=== PATIENT | male | born 1960 | race Caucasian/White ===

== ENCOUNTER 2018-09-17 08:34 | Inpatient (IN) | payer OTHER ==
[2018-09-17 08:59] VITALS: BMI 30.4
--- NOTE | 2018-09-17 09:48 | HP ---
CIWA Score Nausea/Vomitin Muscle Tremors: 2 Anxiety: 2 Agitation: 2 Paroxysmal Sweats: 1-Minimal Palms Moist Orientation: 0-Oriented Tacttile Disturbances: 1-Very Mild Itch/Numbness Auditory Disturbances: 0-None Visual Disturbances: 1-Very Mild Sensitivity Headache: 2-Mild CIWA-Ar Total Score: 13 - Admission Criteria OASAS Guidelines: Admission for Medically Managed Detox: Requires at least one of the followin. CIWA greater than 12 2. Seizures within the past 24 hours 3. Delirium tremens within the past 24 hours 4. Hallucinations within the past 24 hours 5. Acute intervention needed for co occurring medical disorder 6. Acute intervention needed for co occurring psychiatric disorder 7. Severe withdrawal that cannot be handled at a lower level of care (continued vomiting, continued diarrhea, abnormal vital signs) requiring intravenous medication and/or fluids 8. Patient presents the following: CIWA greater than 12 Admission Criteria Met: Admission criteria met Admission ROS BHS - HPI Chief Complaint: i need help to stop drinking alcohol,cocaine and marijuana Allergies/Adverse Reactions: Allergies Allergy/AdvReac Type Severity Reaction Status Date / Time Fish Containing Products Allergy Severe Rash Verified 09/17/18 10:01 No Known Drug Allergies Allergy Verified 09/17/18 10:01 [email or web address] Allergy Severe Rash Uncoded 09/17/18 10:01 [email or web address] Allergy Uncoded 09/17/18 10:01 seafood Allergy Rash Uncoded 09/17/18 10:01 History of Present Illness: this 58 years old male with alcohol,cocaine and marijuana dependence seeking detox,seen in [facility] last night receiving medication, seizure last 20 years ago alcohol related syncope history of hypertension,non compliance nicotine dependence multiple admissions in detox but keep relapsing longest sobriety 20 years plan to go to rehab after detox depression,insomnia,non compliance Exam Limitations: No Limitations - Ebola screening Have you traveled outside of the country in the last 21 days: No Have you had contact with anyone from an Ebola affected area: No Have you been sick,other than usual withdrawal symptoms: No Do you have a fever: No - Review of Systems Constitutional: Loss of Appetite, Malaise, Night Sweats, Changes in sleep, Weakness EENT: reports: Nose Congestion Respiratory: reports: No Symptoms reported Cardiac: reports: Palpitations GI: reports: Nausea, Poor Appetite, Abdominal cramping : reports: No Symptoms Reported Musculoskeletal: reports: Back Pain, Muscle Pain Integumentary: reports: Dryness Neuro: reports: Headache, Tremors Endocrine: reports: No Symptoms Reported Hematology: reports: No Symptoms Reported Psychiatric: reports: No Sypmtoms Reported, Judgement Intact, Mood/Affect Appropiate, Orientated x3, Depressed (insomnia non compliance with med) Patient History - Patient Medical History Hx Anemia: No Hx Asthma: Yes (on albuterol inhaler) Hx Chronic Obstructive Pulmonary Disease (COPD): No Hx Cancer: No Hx Cardiac Disorders: No Hx Congestive Heart Failure: No Hx Hypertension: No Hx Pacemaker: No HX Cerebrovascular Accident: No Hx Seizures: Yes (alcohol related last 2011) Hx Dementia: No Hx Diabetes: No Hx Gastrointestinal Disorders: No Hx Liver Disease: No Hx Genitourinary Disorders: No Hx Sexually Transmitted Disorders: No Hx Renal Disease (ESRD): No Hx Thyroid Disease: No Hx Human Immunodeficiency Virus (HIV): No (last 2016 negative) Hx Hepatitis C: Yes (treated in 2016) Hx Depression: Yes Hx Suicide Attempt: No (DENIES) Hx Bipolar Disorder: No Hx Schizophrenia: No Other Medical History: no suicidal,no homicidal,insomnia - Patient Surgical History Past Surgical History: Yes Hx Neurologic Surgery: No Hx Cataract Extraction: No Hx Cardiac Surgery: No Hx Lung Surgery: No Hx Breast Surgery: No Hx Breast Biopsy: No Hx Abdominal Surgery: No Hx Appendectomy: No Hx Cholecystectomy: No Hx Genitourinary Surgery: No Hx Section: No Hx Orthopedic Surgery: No Other Surgical History: SURGERY ON LEFT HAND IN 1978 Anesthesia Reaction: No - PPD History Previous Implant?: Yes Documented Results: Negative w/o proof Date: 06/01/14 Results: 0 mm PPD to be Administered?: Yes - Smoking Cessation Smoking history: Current every day smoker Have you smoked in the past 12 months: Yes Aproximately how many cigarettes per day: 10 Cigars Per Day: 0 Hx Chewing Tobacco Use: No Initiated information on smoking cessation: Yes 'Breaking Loose' booklet given: 09/17/18 - Substance & Tx. History Hx Alcohol Use: Yes Hx Substance Use: Yes Substance Use Type: Alcohol, Cocaine, Marijuana Hx Substance Use Treatment: Yes (03/03 in [place] did not recall the facility) - Substances Abused Alcohol Route: Oral Frequency: Daily Amount used: 3 pints of vodka/ a case of 12 ozs of beer Age of first use: 8 Date of Last Use: 09/16/18 Cocaine Route: Inhalation Frequency: 1-2 times per week Amount used: 40$ Age of first use: 12 Date of Last Use: 09/15/18 Marijuana/Hashish Route: Smoking Frequency: 1-2 times per week Amount used: 60$ Age of first use: 12 Date of Last Use: 09/16/18 Family Disease History - Family Disease History Family Disease History: Other: Father (alcohol,), Mother (alcohol, ), Brother (ADDICTED TO ETOH) Admission Physical Exam [facility] - Vital Signs Vital Signs: Vital Signs - 24 hr 09/17/18 08:56 Temperature 99.2 F Pulse Rate 107 H Respiratory 20 Rate Blood Pressure 147/88 - Physical General Appearance: Yes: Moderate Distress, Tremorous, Irritable, Sweating, Anxious HEENTM: Yes: Normal ENT Inspection, Normocephalic, Normal Voice, CAILIN Respiratory: Yes: Lungs Clear, Normal Breath Sounds, No Respiratory Distress Neck: Yes: Within Normal Limits, Supple, Trachea in good position Breast: Yes: Within Normal Limits Cardiology: Yes: Tachycardia Abdominal: Yes: Within Normal Limits, Normal Bowel Sounds, Soft Genitourinary: Yes: Within Normal Limits Back: Yes: Muscle Spasm Musculoskeletal: Yes: Back pain, Muscle Pain Extremities: Yes: Tremors, Other (scar in the palmar surface of left hand) 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 II-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 NML intact, Fully Oriented, Alert, Motor Strength 5/5 Integumentary: Yes: Dry Lymphatic: Yes: Within Normal Limits - Diagnostic (1) Alcohol dependence with uncomplicated withdrawal Current Visit: Yes Status: Acute (2) Cocaine dependence Current Visit: Yes Status: Acute (3) Cannabis dependence Current Visit: Yes Status: Acute (4) Arthritis of left knee Current Visit: No Status: Chronic (5) Asthma Current Visit: No Status: Chronic (6) Seizure Current Visit: No Status: Chronic Comment: alcohol related seizures, not emdicated for it (7) Hepatitis C Current Visit: Yes Status: Acute (8) Nicotine dependence Current Visit: Yes Status: Acute (9) Syncope Current Visit: Yes Status: Acute (10) Depression Current Visit: Yes Status: Acute (11) Insomnia Current Visit: Yes Status: Acute (12) Essential hypertension Current Visit: Yes Status: Acute Cleared for Admission [facility] - Detox or Rehab [facility] Level of Care: Medically Managed Detox Regimen/Protocol: Librium [facility] Breath Alcohol Content Breath Alcohol Content: 0 Urine Drug Screen - Results Drug Screen Negative: No Urine Drug Screen Results: THC-Marijuana, DAIJA-Cocaine, BZO-Benzodiazepines
[2018-09-17] MEDS ORDERED: MAG HYDROX/AL HYDROX/SIMETH 30 ML UNIT-DOSE CUP PO PRN (10:04)
[2018-09-17] MEDS ORDERED: chlordiazePOXIDE HCL 25 MG CAPSULE PO PRN (10:04)
[2018-09-17] MEDS ORDERED: MENTHOL/PHENOL 1 EACH UD MM PRN (10:04)
[2018-09-17] MEDS ORDERED: MAGNESIUM CITRATE 300 ML BOTTLE PO PRN (10:04)
[2018-09-17] MEDS ORDERED: MAGNESIUM HYDROX 2400MG/30ML ORAL SUSPENSION 30 ML CUP PO PRN (10:04)
[2018-09-17] MEDS ORDERED: LOPERAMIDE HCL 2 MG CAPSULE PO PRN (10:04)
[2018-09-17] MEDS ORDERED: P-EPHED 60MG/TRIPROLIDI 2.5MG TABLET PO PRN (10:04)
[2018-09-17] MEDS ORDERED: guaiFENesin/D-METHORPHAN HB 10 ML UNIT-DOSE CUPS PO PRN (10:04)
[2018-09-17] MEDS: chlordiazePOXIDE HCL 25 MG CAPSULE PO SCH ×3 (11:27→22:49)
[2018-09-17] MEDS: NICOTINE 21 MG/24 HOURS TOPICAL PATCH TD SCH (11:29)
[2018-09-17] MEDS ORDERED: MELATONIN 5 MG TABLETS PO PRN (22:00)
[2018-09-17] MEDS: THIAMINE HCL 100 MG TABLET (FP) PO SCH (22:49)
[2018-09-18] MEDS: chlordiazePOXIDE HCL 25 MG CAPSULE PO SCH ×4 (06:13→22:17)
[2018-09-18] MEDS ORDERED: ALBUTEROL SO4 8 GM HFA INHALER IH PRN (09:35)
[2018-09-18 10:17] LABS: HEMATOCRIT 43.8 % (35.4-49); HEMOGLOBIN 14.2 GM/dL (11.7-16.9); MCH 30.6 pg (25.7-33.7); MCHC 32.3 g/dl (32.0-35.9); MEAN CELL VOLUME 94.7 fl (80-96); MEAN PLT VOLUME 9.5 fl (7.5-11.1); PLATELET COUNT 296 K/MM3 (134-434); RBC 4.63 M/mm3 (4.00-5.60); WHITE BLOOD COUNT 9.4 K/mm3 (4.0-10.0)
[2018-09-18 10:35] LABS: ALBUMIN 3.7 g/dl (3.4-5.0); ALK PHOS 119 U/L (45-117); ANION GAP 7 MMOL/L (8-16); BILIRUBIN,TOTAL 1.2 mg/dL (0.2-1); BLOOD UREA NITROGEN 8 mg/dL (7-18); CALCIUM 8.7 mg/dL (8.5-10.1); CHLORIDE 103 mmol/L (98-107); CO2 29 mmol/L (21-32); CREATININE 0.9 mg/dL (0.55-1.3); GLUCOSE,RANDOM 96 mg/dL (74-106); POTASSIUM 4.2 mmol/L (3.5-5.1); SGOT/AST 29 U/L (15-37); SGPT/ALT 28 U/L (13-61); SODIUM 139 mmol/L (136-145); TOT PROT 7.4 g/dl (6.4-8.2)
[2018-09-18] MEDS: NICOTINE 21 MG/24 HOURS TOPICAL PATCH TD SCH (10:36)
[2018-09-18] MEDS: PRENATAL VITAMINS W/ FOLIC ACID TABLET (FP) PO SCH (10:36)
[2018-09-18] MEDS: IBUPROFEN 400 MG TABLET (FP) PO PRN (17:17)
[2018-09-18] MEDS: THIAMINE HCL 100 MG TABLET (FP) PO SCH (22:17)
[2018-09-19] MEDS: chlordiazePOXIDE HCL 25 MG CAPSULE PO SCH (06:30)
[2018-09-19] MEDS: METHYL SALICYLATE/MENTHOL OINT 30 GM TUBE TP SCH (10:00)
[2018-09-19] MEDS: PRENATAL VITAMINS W/ FOLIC ACID TABLET (FP) PO SCH (10:32)
[2018-09-19] MEDS: hydrOXYzine PAMOATE 50 MG CAPSULE (FP) PO PRN (10:32)
[2018-09-19] MEDS: chlordiazePOXIDE 5 MG CAPSULE PO SCH ×3 (10:32→23:04)
[2018-09-19] MEDS: NICOTINE 21 MG/24 HOURS TOPICAL PATCH TD SCH (10:32)
[2018-09-19] MEDS: BACITRACIN 0.9 GM PACKET TP SCH ×2 (14:38→23:04)
--- NOTE | 2018-09-19 17:32 | PN ---
S CIWA - CIWA Score Nausea/Vomitin-No Nausea/No Vomiting Muscle Tremors: 2 Anxiety: 4-Mod. Anxious/Guarded Agitation: 4-Moderately Restless Paroxysmal Sweats: No Perspiration Orientation: 0-Oriented Tacttile Disturbances: 3-Moderate Itch/Numb/Burn Auditory Disturbances: 0-None Visual Disturbances: 0-None Headache: 0-None Present CIWA-Ar Total Score: 13 BHS Progress Note (SOAP) Subjective: Anxious, Body Aches, Itching, Interrupted Sleep. Objective: PATIENT A & O X 3, OBSERVED AMBULATING ON UNIT. IN NO ACUTE DISTRESS. 09/19/18 17:32 Vital Signs Temperature 98.4 F 09/19/18 15:38 Pulse Rate 107 H 09/19/18 15:38 Respiratory Rate 18 09/19/18 15:38 Blood Pressure 136/90 09/19/18 15:38 O2 Sat by Pulse Oximetry (%) Laboratory Tests 09/17/18 09/18/18 09/18/18 10:20 06:00 06:00 WBC 9.4 RBC 4.63 Hgb 14.2 Hct 43.8 MCV 94.7 MCH 30.6 MCHC 32.3 RDW 14.0 Plt Count 296 D MPV 9.5 Sodium 139 Potassium 4.2 Chloride 103 Carbon Dioxide 29 Anion Gap 7 L BUN 8 Creatinine 0.9 Creat Clearance w eGFR > 60 Random Glucose 96 Calcium 8.7 Total Bilirubin 1.2 H AST 29 ALT 28 Alkaline Phosphatase 119 H Total Protein 7.4 Albumin 3.7 RPR Titer HIV 1&2 Antibody Screen Negative HIV P24 Antigen Negative 09/18/18 06:00 WBC RBC Hgb Hct MCV MCH MCHC RDW Plt Count MPV Sodium Potassium Chloride Carbon Dioxide Anion Gap BUN Creatinine Creat Clearance w eGFR Random Glucose Calcium Total Bilirubin AST ALT Alkaline Phosphatase Total Protein Albumin RPR Titer Nonreactive HIV 1&2 Antibody Screen HIV P24 Antigen LABS NOTED. Assessment: 09/19/18 17:32 WITHDRAWAL SYMPTOMS. Plan: CONTINUE DETOX. CONTINUE TO MONITOR BLOOD PRESSURE.
[2018-09-19] MEDS: ACETAMINOPHEN 325 MG TABLET (FP) PO PRN (19:42)
[2018-09-19] MEDS: THIAMINE HCL 100 MG TABLET (FP) PO SCH (23:04)
[2018-09-20] MEDS: chlordiazePOXIDE 5 MG CAPSULE PO SCH (06:30)
--- NOTE | 2018-09-20 09:21 | PN ---
BHS CIWA - CIWA Score Nausea/Vomitin Muscle Tremors: 2 Anxiety: 2 Agitation: 2 Paroxysmal Sweats: 1-Minimal Palms Moist Orientation: 0-Oriented Tacttile Disturbances: 1-Very Mild Itch/Numbness Auditory Disturbances: 1-Very Mild Visual Disturbances: 0-None Headache: 2-Mild CIWA-Ar Total Score: 13 BHS Progress Note (SOAP) Subjective: alert,irritable,anxious,interrupted sleep,tremor Objective: 09/20/18 09:17 t 98.6,p99,r18,bp 92/83 Assessment: 09/20/18 09:18 withdrawal symptom Plan: continue detox
--- NOTE | 2018-09-20 09:24 | PN ---
S Progress Note (SOAP) Subjective: alert,irritable,anxious,interrupted sleep Objective: 09/20/18 09:23 Vital Signs Temperature 98.9 F 09/20/18 06:44 Pulse Rate 71 09/20/18 06:44 Respiratory Rate 18 09/20/18 06:44 Blood Pressure 138/86 09/20/18 06:44 O2 Sat by Pulse Oximetry (%) Assessment: 09/20/18 09:23 withdrawal symptom Plan: continue detox,discharge in am
[2018-09-20] MEDS: PRENATAL VITAMINS W/ FOLIC ACID TABLET (FP) PO SCH (11:51)
[2018-09-20] MEDS: NICOTINE 21 MG/24 HOURS TOPICAL PATCH TD SCH (11:51)
[2018-09-20] MEDS: chlordiazePOXIDE HCL 10 MG CAPSULE PO SCH ×3 (11:51→23:59)
[2018-09-20] MEDS: METHYL SALICYLATE/MENTHOL OINT 30 GM TUBE TP SCH (13:35)
[2018-09-20] MEDS: BACITRACIN 0.9 GM PACKET TP SCH ×2 (13:35→23:59)
[2018-09-20] MEDS: hydrOXYzine PAMOATE 50 MG CAPSULE (FP) PO PRN (13:40)
[2018-09-20] MEDS: IBUPROFEN 400 MG TABLET (FP) PO PRN (13:40)
[2018-09-20] MEDS: ACETAMINOPHEN 325 MG TABLET (FP) PO PRN (18:24)
[2018-09-20] MEDS: THIAMINE HCL 100 MG TABLET (FP) PO SCH (23:59)
--- NOTE | 2018-09-21 10:51 | DS ---
[facility] Detox Discharge Summary Admission Date: 09/17/18 Discharge Date: 09/21/18 - History Present History: Alcohol Dependence Additional Comments: 58 years old male admitted on 09/17/17 for alcohol withdrawal stabilization completed detox regimen tolerated well alert no acute distress aftercare [facility] - Physical Exam Results Vital Signs: Vital Signs Temperature 98.1 F 09/21/18 09:42 Pulse Rate 95 H 09/21/18 09:42 Respiratory Rate 18 09/21/18 09:42 Blood Pressure 146/100 09/21/18 09:42 O2 Sat by Pulse Oximetry (%) Pertinent Admission Physical Exam Findings: alcohol withdrawal sx Laboratory Last Values WBC 9.4 K/mm3 (4.0-10.0) 09/18/18 06:00 RBC 4.63 M/mm3 (4.00-5.60) 09/18/18 06:00 Hgb 14.2 GM/dL (11.7-16.9) 09/18/18 06:00 Hct 43.8 % (35.4-49) 09/18/18 06:00 MCV 94.7 fl (80-96) 09/18/18 06:00 MCH 30.6 pg (25.7-33.7) 09/18/18 06:00 MCHC 32.3 g/dl (32.0-35.9) 09/18/18 06:00 RDW 14.0 % (11.9-15.9) 09/18/18 06:00 Plt Count 296 K/MM3 (134-434) D 09/18/18 06:00 MPV 9.5 fl (7.5-11.1) 09/18/18 06:00 Sodium 139 mmol/L (136-145) 09/18/18 06:00 Potassium 4.2 mmol/L (3.5-5.1) 09/18/18 06:00 Chloride 103 mmol/L (98-107) 09/18/18 06:00 Carbon Dioxide 29 mmol/L (21-32) 09/18/18 06:00 Anion Gap 7 MMOL/L (8-16) L 09/18/18 06:00 BUN 8 mg/dL (7-18) 09/18/18 06:00 Creatinine 0.9 mg/dL (0.55-1.3) 09/18/18 06:00 Creat Clearance w eGFR > 60 (>60) 09/18/18 06:00 Random Glucose 96 mg/dL (74-106) 09/18/18 06:00 Calcium 8.7 mg/dL (8.5-10.1) 09/18/18 06:00 Total Bilirubin 1.2 mg/dL (0.2-1) H 09/18/18 06:00 AST 29 U/L (15-37) 09/18/18 06:00 ALT 28 U/L (13-61) 09/18/18 06:00 Alkaline Phosphatase 119 U/L (45-117) H 09/18/18 06:00 Total Protein 7.4 g/dl (6.4-8.2) 09/18/18 06:00 Albumin 3.7 g/dl (3.4-5.0) 09/18/18 06:00 RPR Titer Nonreactive (NONREACTIVE) 09/18/18 06:00 HIV 1&2 Antibody Screen Negative 09/17/18 10:20 HIV P24 Antigen Negative 09/17/18 10:20 lab noted - Treatment Hospital Course: Detox Protocol Followed, Detoxed Safely, Responded well, Discharged Condition Good, Rehab Referral Accepted Patient has Accepted a Rehab Referral to: [facility] - Medication Discharge Medications: Ambulatory Orders traZODone HCL [Trazodone HCl] 100 mg PO HS 09/17/18 Albuterol Sulfate Inhaler - [Ventolin HFA Inhaler -] 2 inh PO Q4H PRN #1 inhaler 09/21/18 - Diagnosis (1) Alcohol dependence with uncomplicated withdrawal Current Visit: Yes Status: Acute (2) Essential hypertension Current Visit: Yes Status: Chronic (3) Asthma Current Visit: Yes Status: Chronic Qualifiers: Asthma severity: mild Asthma persistence: intermittent Asthma complication type: uncomplicated Qualified Code(s): J45.20 - Mild intermittent asthma, uncomplicated (4) Hepatitis C Current Visit: Yes Status: Chronic Qualifiers: Viral hepatitis chronicity: chronic Hepatic coma status: without hepatic coma Qualified Code(s): B18.2 - Chronic viral hepatitis C (5) Nicotine dependence Current Visit: Yes Status: Acute - AMA Did Patient Leave Against Medical Advice: No
[2018-09-21] MEDS: NICOTINE 21 MG/24 HOURS TOPICAL PATCH TD SCH (12:04)
[2018-09-21] MEDS: PRENATAL VITAMINS W/ FOLIC ACID TABLET (FP) PO SCH (12:04)
[2018-09-21] MEDS: hydrOXYzine PAMOATE 50 MG CAPSULE (FP) PO PRN (12:04)
[2018-09-21] MEDS: METHYL SALICYLATE/MENTHOL OINT 30 GM TUBE TP SCH (12:06)
[2018-09-21] MEDS: BACITRACIN 0.9 GM PACKET TP SCH (12:06)
[2018-09-21 13:15] VITALS: BP 142/93; PULSE 110; TEMP 97.8
== END 2018-09-21 15:16 | disposition other institution (70) | DRG 774 ==
LOC: YASAS 08:34 → Y6N 10:18
PROC: HZ2ZZZZ Detoxification Services for Substance Abuse Treatment (ICD-10-PCS; principal; 2018-09-17)
DX: F10.230 Alcohol dependence with withdrawal, uncomplicated (principal); F14.20 Cocaine dependence, uncomplicated; F12.20 Cannabis dependence, uncomplicated; F17.210 Nicotine dependence, cigarettes, uncomplicated; F32.9 Major depressive disorder, single episode, unspecified; I10 Essential (primary) hypertension; J45.20 Mild intermittent asthma, uncomplicated; B18.2 Chronic viral hepatitis C; R55 Syncope and collapse; G47.00 Insomnia, unspecified; M17.12 Unilateral primary osteoarthritis, left knee; Z86.69 Personal history of other diseases of the nervous system and sense organs; Z95.0 Presence of cardiac pacemaker
CPT/HCPCS: 36415; 80053; 85027; 86593; 87389

== ENCOUNTER 2018-09-21 15:25 | Inpatient (IN) | payer OTHER ==
--- NOTE | 2018-09-21 16:13 | HP ---
[facility] Rehab Assess/Revision - Admission History Admitted to Rehab from: [facility] [address] [place] Date of Admission to Rehab: 09/21/18 - Findings Detox History & Physical reviewed: Yes Concur with findings: Yes Comments/Additional Findings: for rehab as protocol Inpatient Rehab Admission - Initial Determination Are CD services needed?: Yes Free of communicable disease: Yes Not in need of hospitalization: Yes - Rehab Admission Criteria Previous failed treatment: Yes Poor recovery environment: Yes Comorbidities: Yes Lacks judgement: No Patient is meeting Inpatient Rehab admission criteria:: Yes
[2018-09-21] MEDS ORDERED: ACETAMINOPHEN 325 MG TABLET (FP) PO PRN (16:16)
[2018-09-21] MEDS ORDERED: guaiFENesin/D-METHORPHAN HB 10 ML UNIT-DOSE CUPS PO PRN (16:16)
[2018-09-21] MEDS ORDERED: LOPERAMIDE HCL 2 MG CAPSULE PO PRN (16:16)
[2018-09-21] MEDS ORDERED: MAG HYDROX/AL HYDROX/SIMETH 30 ML UNIT-DOSE CUP PO PRN (16:16)
[2018-09-21] MEDS ORDERED: MAGNESIUM CITRATE 300 ML BOTTLE PO PRN (16:16)
[2018-09-21] MEDS ORDERED: MENTHOL/PHENOL 1 EACH UD MM PRN (16:16)
[2018-09-21] MEDS ORDERED: MAGNESIUM HYDROX 2400MG/30ML ORAL SUSPENSION 30 ML CUP PO PRN (16:16)
[2018-09-21] MEDS ORDERED: P-EPHED 60MG/TRIPROLIDI 2.5MG TABLET PO PRN (16:16)
[2018-09-21] MEDS ORDERED: hydrOXYzine PAMOATE 50 MG CAPSULE (FP) PO PRN (16:16)
[2018-09-21] MEDS ORDERED: IBUPROFEN 400 MG TABLET (FP) PO PRN (16:16)
[2018-09-21] MEDS ORDERED: ALBUTEROL SO4 8 GM HFA INHALER IH PRN (16:17)
--- NOTE | 2018-09-21 18:38 | PN ---
S Progress Note Note: Called by nursing staff to order medication for newly admitted patient. Medication reconciliation done. Trazadone 100 mg po HS ordered
[2018-09-21] MEDS: THIAMINE HCL 100 MG TABLET (FP) PO SCH (21:13)
[2018-09-21] MEDS: traZODone HCL 100 MG TABLET (FP) PO SCH (21:13)
[2018-09-21] MEDS ORDERED: MELATONIN 5 MG TABLETS PO PRN (22:00)
--- NOTE | 2018-09-22 07:38 | HP ---
Psychiatrist Admission - Data Date of interview: 09/22/18 Admission source: 6N Identifying data: This is the first [facility] admission for this 58 years old single male, father of 3 children, unemployed on SSI, homeless Medical History: Significant for history of arthitis left knee, gout, bronchial asthma, history of treatment for hepatitis C in 2017, alcohol-related seizure and orthosurgery for fracture left hand. Smokes 10 cigarettes daily Psychiatric History: Patient was very irritable and not fully cooperative with the interview. Reports being diagnosed with PTSD/MDD approximately 20 years ago. Reports seeing psychiatrist on & off till 4 [facility] Reports 2 previous psychiatic hospitalizations for depession at [facility]. Denies previous suicidal attempt. He claims that he could not recall name of any medications that were prescribed to him. Physical/Sexual Abuse/Trauma History: Denies Additional Comment: Denies criminal history Vital Signs: Vital Signs - 24 hr 09/22/18 09/22/18 09/22/18 00:30 03:30 06:00 Temperature 98.3 F Pulse Rate 96 H Respiratory 16 16 18 Rate Blood Pressure 144/94 Allergies/Adverse Reactions: Allergies Allergy/AdvReac Type Severity Reaction Status Date / Time Fish Containing Products Allergy Severe Rash Verified 09/17/18 10:01 No Known Drug Allergies Allergy Verified 09/17/18 10:01 [email or web address] Allergy Severe Rash Uncoded 09/17/18 10:01 [email or web address] Allergy Uncoded 09/17/18 10:01 seafood Allergy Rash Uncoded 09/17/18 10:01 Date of last physical exam: 09/17/18 Concur with the findings of this exam: Yes - Substance Abuse/Tx History Hx Alcohol Use: Yes Hx Substance Use: Yes Substance Use Type: Alcohol (Started drinking alcohol at age 8, consumes 3 pint of vodka & a case of 12oz of beer daily. Last drank on 09/16/18 ), Cocaine ( Started using cocaine at age 12, consumes $40 worth 1-2 times weekly. Last used on 09/15/18), Marijuana (Started smoking marijuana at age 12, consumes $60 worth 1-2 times weekly. Last smoked on 09/16/18) Hx Substance Use Treatment: Yes (6 previous inpt detox @ [facility]) Mental Status Exam - Mental Status Exam Alert and Oriented to: Time, Place, Person Cognitive Function: Fair Patient Appearance: Disheveled Mood: Irritable Affect: Appropriate Patient Behavior: Uncooperative Speech Pattern: Clear Voice Loudness: Normal Thought Process: Intact, Goal Oriented Thought Disorder: Not Present Hallucinations: Denies Suicidal Ideation: Denies Homicidal Ideation: Denies Insight/Judgement: Fair Sleep: Poorly Appetite: Fair Muscle strength/Tone: Normal Gait/Station: Normal Psychiatric Findings - Problem List ([place] 1, 2,3) (1) Alcohol dependence Current Visit: No Status: Acute (2) Cocaine dependence Current Visit: No Status: Acute Qualifiers: (3) Cannabis dependence Current Visit: No Status: Acute (4) Nicotine dependence Current Visit: No Status: Chronic (5) PTSD (post-traumatic stress disorder) Current Visit: Yes Status: Chronic (6) Substance induced mood disorder Current Visit: Yes Status: Acute (7) Substance-induced sleep disorder Current Visit: Yes Status: Acute (8) Gout Current Visit: No Status: Acute (9) Arthritis of left knee Current Visit: No Status: Chronic (10) Asthma Current Visit: No Status: Chronic Qualifiers: (11) Essential hypertension Current Visit: No Status: Chronic (12) Hepatitis C Current Visit: No Status: Chronic Qualifiers: (13) Seizure Current Visit: No Status: Chronic Comment: alcohol related seizures, not emdicated for it - Initial Treatment Plan Initial Treatment Plan: Monitor progress
[2018-09-22] MEDS: PRENATAL VITAMINS W/ FOLIC ACID TABLET (FP) PO SCH (10:24)
[2018-09-22] MEDS: traZODone HCL 100 MG TABLET (FP) PO SCH (21:22)
[2018-09-22] MEDS: THIAMINE HCL 100 MG TABLET (FP) PO SCH (21:22)
[2018-09-23] MEDS ORDERED: cloNIDine HCL 0.1 MG TABLET PO ONE (06:49)
--- NOTE | 2018-09-23 06:54 | PN ---
[facility] Progress Note Note: C/O ASYMPTOMATIC HTN CLIENT WITH REPORTED HX/O HTN CLIENT REPORTS HE IS ON AMLODIPINE 5 MG DAILY BUT HAS NOT RECIEVED SINCE ADMISSION. CHART REVIEW DOES NOT REFLECT CLIENT REPORTED SUCH INFO ON ADMISSION. BEGIN AMLODIPINE 5 MG PO DAILY Vital Signs (72 hours) 09/22/18 09/22/18 09/22/18 00:30 03:30 06:00 Temperature 98.3 F Pulse Rate 96 H Respiratory 16 16 18 Rate Blood Pressure 144/94 09/23/18 09/23/18 00:30 03:30 Temperature Pulse Rate Respiratory 16 16 Rate Blood Pressure BP THIS MORNING 149/103
[2018-09-23] MEDS ORDERED: amLODIPine BESYLATE 5 MG TABLET (FP) PO SCH (10:00)
[2018-09-23] MEDS: PRENATAL VITAMINS W/ FOLIC ACID TABLET (FP) PO SCH (11:28)
[2018-09-23] MEDS ORDERED: PT OWN MED DRAWER 7, Y5N ONE ×2 (12:36→12:56)
[2018-09-23] MEDS: amLODIPine BESYLATE 5 MG TABLET (FP) PO SCH (12:52)
[2018-09-23] MEDS: traZODone HCL 100 MG TABLET (FP) PO SCH (21:30)
[2018-09-23] MEDS: THIAMINE HCL 100 MG TABLET (FP) PO SCH (21:30)
[2018-09-24] MEDS: PRENATAL VITAMINS W/ FOLIC ACID TABLET (FP) PO SCH (12:49)
[2018-09-24] MEDS: amLODIPine BESYLATE 5 MG TABLET (FP) PO SCH (12:49)
[2018-09-24] MEDS: THIAMINE HCL 100 MG TABLET (FP) PO SCH (21:19)
[2018-09-24] MEDS: traZODone HCL 100 MG TABLET (FP) PO SCH (21:19)
[2018-09-25] MEDS: PRENATAL VITAMINS W/ FOLIC ACID TABLET (FP) PO SCH (09:13)
[2018-09-25] MEDS: amLODIPine BESYLATE 5 MG TABLET (FP) PO SCH (09:13)
[2018-09-25] MEDS ORDERED: cloNIDine HCL 0.1 MG TABLET PO ONE (11:22)
--- NOTE | 2018-09-25 11:31 | PN ---
S Progress Note Note: HX HTN. PT REPORTS HE WAS ON AMLODIPINE 5MG. REPORTS HE HAS A PMD DR. ANDRADE AT [facility] AND USES [facility]. CURRENTLY ORDERERD FOR AMLODIPINE 5 MG AND BP NOT CONTROLLED. REPORTS FAINT HEADACHE, NO DIZZINESS, NAUSEA OR VOMITING. Vital Signs (72 hours) 09/23/18 09/23/18 09/23/18 00:30 03:30 07:31 Temperature 98.0 F Pulse Rate 88 Respiratory 16 16 18 Rate Blood Pressure 141/103 H 09/23/18 09/24/18 09/24/18 07:46 00:30 03:30 Temperature Pulse Rate Respiratory 18 18 Rate Blood Pressure 141/99 09/24/18 09/25/18 09/25/18 06:59 00:30 03:30 Temperature 98.1 F Pulse Rate 88 Respiratory 20 20 20 Rate Blood Pressure 139/95 09/25/18 09/25/18 09/25/18 06:52 09:13 11:19 Temperature 97.7 F Pulse Rate 88 92 H 96 H Respiratory 20 Rate Blood Pressure 146/98 152/100 160/95 DI:UNCONTROLLED HTN PLAN:INCREASE AMLODIPINE TO 10 MG PO DAILY CLONIDINE 0.1 MG PO NOW.
[2018-09-25] MEDS: THIAMINE HCL 100 MG TABLET (FP) PO SCH (21:26)
[2018-09-25] MEDS: traZODone HCL 100 MG TABLET (FP) PO SCH (21:26)
[2018-09-26] MEDS ORDERED: PT OWN MED DRAWER 7, Y5N ONE (09:12)
[2018-09-26] MEDS: PRENATAL VITAMINS W/ FOLIC ACID TABLET (FP) PO SCH (10:43)
[2018-09-26] MEDS: amLODIPine BESYLATE 10 MG TABLET (FP) PO SCH (10:44)
[2018-09-26] MEDS ORDERED: amLODIPine BESYLATE 5 MG TABLET (FP) PO SCH (12:40)
[2018-09-26] MEDS: traZODone HCL 100 MG TABLET (FP) PO SCH (22:02)
[2018-09-26] MEDS: THIAMINE HCL 100 MG TABLET (FP) PO SCH (22:02)
[2018-09-27] MEDS: amLODIPine BESYLATE 10 MG TABLET (FP) PO SCH (09:59)
[2018-09-27] MEDS: PRENATAL VITAMINS W/ FOLIC ACID TABLET (FP) PO SCH (09:59)
[2018-09-27] MEDS: THIAMINE HCL 100 MG TABLET (FP) PO SCH (21:24)
[2018-09-27] MEDS: traZODone HCL 100 MG TABLET (FP) PO SCH (21:24)
[2018-09-28] MEDS: amLODIPine BESYLATE 10 MG TABLET (FP) PO SCH (09:58)
[2018-09-28] MEDS: PRENATAL VITAMINS W/ FOLIC ACID TABLET (FP) PO SCH (09:58)
[2018-09-28] MEDS: traZODone HCL 100 MG TABLET (FP) PO SCH (21:56)
[2018-09-28] MEDS: THIAMINE HCL 100 MG TABLET (FP) PO SCH (21:56)
[2018-09-29] MEDS: PRENATAL VITAMINS W/ FOLIC ACID TABLET (FP) PO SCH (10:43)
[2018-09-29] MEDS: amLODIPine BESYLATE 10 MG TABLET (FP) PO SCH (10:43)
[2018-09-29] MEDS: traZODone HCL 100 MG TABLET (FP) PO SCH (21:55)
[2018-09-29] MEDS: THIAMINE HCL 100 MG TABLET (FP) PO SCH (21:56)
[2018-09-30] MEDS: PRENATAL VITAMINS W/ FOLIC ACID TABLET (FP) PO SCH (10:13)
[2018-09-30] MEDS: amLODIPine BESYLATE 10 MG TABLET (FP) PO SCH (10:13)
[2018-09-30] MEDS: traZODone HCL 100 MG TABLET (FP) PO SCH (21:15)
[2018-09-30] MEDS: THIAMINE HCL 100 MG TABLET (FP) PO SCH (21:16)
[2018-10-01] MEDS: PRENATAL VITAMINS W/ FOLIC ACID TABLET (FP) PO SCH (10:18)
[2018-10-01] MEDS: amLODIPine BESYLATE 10 MG TABLET (FP) PO SCH (10:18)
[2018-10-01] MEDS: traZODone HCL 100 MG TABLET (FP) PO SCH (21:53)
[2018-10-01] MEDS: THIAMINE HCL 100 MG TABLET (FP) PO SCH (21:53)
[2018-10-02] MEDS: PRENATAL VITAMINS W/ FOLIC ACID TABLET (FP) PO SCH (10:30)
[2018-10-02] MEDS: amLODIPine BESYLATE 10 MG TABLET (FP) PO SCH (10:30)
[2018-10-02] MEDS: traZODone HCL 100 MG TABLET (FP) PO SCH (21:03)
[2018-10-02] MEDS: THIAMINE HCL 100 MG TABLET (FP) PO SCH (21:03)
[2018-10-03] MEDS: PRENATAL VITAMINS W/ FOLIC ACID TABLET (FP) PO SCH (10:50)
[2018-10-03] MEDS: amLODIPine BESYLATE 10 MG TABLET (FP) PO SCH (10:50)
--- NOTE | 2018-10-03 11:44 | PN ---
[facility] Progress Note Note: PT C/O LEFT LEG SWELLING. DENIES TRUAMA TO AREA BUT STATES HX OF ARTHRITIS TO KNEES AND HANDS WITH PAIN TO AREAS. ALERT O X 3. PT ALSO REPORTS HE TAKES BABY ASPIRIN DAILY. Vital Signs 10/03/18 09:30 Temperature 97.9 F Pulse Rate 79 Respiratory 18 Rate Blood Pressure 140/97 P/E:LEFT CARDOSO WITH CIRCUMSCRIBED AREA OF SLIGHT (+) PITTING EDEMA. NO PITTING TO 1/3 ABOVE TO KNEE OR BELOW TO ANKLE OF SAID AREA. NO REDNESS,WARMTH OR SWELLING. RIGHT LEG WITH NO EDEMA NOTED. NO REDNESS/WARMTH OR SWELLING RIGHT HAND WITH ARTHRITIC CHANGES ON FINGERS. A: PLAN:ANALGESIC RUB TO ARTHRITIC KNEES AND HAND AREAS ELEVATE LEFT LEG WHILE IN BED MONITOR PT STATUS AND REPORT WORSENING SX. ASPIRIN 81 MG PO DAILY. FLEXERIL 10 MG PO TID PRN
[2018-10-03] MEDS ORDERED: CYCLOBENZAPRINE HCL 10 MG TABLET (FP) PO PRN (14:01)
[2018-10-03] MEDS: ASPIRIN 81 MG CHEWABLE TABLETS PO SCH (16:07)
[2018-10-03] MEDS: THIAMINE HCL 100 MG TABLET (FP) PO SCH (21:30)
[2018-10-03] MEDS: traZODone HCL 100 MG TABLET (FP) PO SCH (21:31)
[2018-10-04] MEDS: amLODIPine BESYLATE 10 MG TABLET (FP) PO SCH (10:19)
[2018-10-04] MEDS: ASPIRIN 81 MG CHEWABLE TABLETS PO SCH (10:19)
[2018-10-04] MEDS: PRENATAL VITAMINS W/ FOLIC ACID TABLET (FP) PO SCH (10:19)
[2018-10-04] MEDS: traZODone HCL 100 MG TABLET (FP) PO SCH (21:10)
[2018-10-04] MEDS: THIAMINE HCL 100 MG TABLET (FP) PO SCH (21:10)
[2018-10-05] MEDS: PRENATAL VITAMINS W/ FOLIC ACID TABLET (FP) PO SCH (10:30)
[2018-10-05] MEDS: ASPIRIN 81 MG CHEWABLE TABLETS PO SCH (10:30)
[2018-10-05] MEDS: amLODIPine BESYLATE 10 MG TABLET (FP) PO SCH (10:30)
[2018-10-05] MEDS: THIAMINE HCL 100 MG TABLET (FP) PO SCH (21:44)
[2018-10-05] MEDS: traZODone HCL 100 MG TABLET (FP) PO SCH (21:44)
[2018-10-06] MEDS: ASPIRIN 81 MG CHEWABLE TABLETS PO SCH (09:52)
[2018-10-06] MEDS: PRENATAL VITAMINS W/ FOLIC ACID TABLET (FP) PO SCH (09:52)
[2018-10-06] MEDS: amLODIPine BESYLATE 10 MG TABLET (FP) PO SCH (10:04)
[2018-10-06] MEDS: traZODone HCL 100 MG TABLET (FP) PO SCH (21:30)
[2018-10-06] MEDS: THIAMINE HCL 100 MG TABLET (FP) PO SCH (21:30)
[2018-10-07] MEDS: ASPIRIN 81 MG CHEWABLE TABLETS PO SCH (10:35)
[2018-10-07] MEDS: amLODIPine BESYLATE 10 MG TABLET (FP) PO SCH (10:35)
[2018-10-07] MEDS: PRENATAL VITAMINS W/ FOLIC ACID TABLET (FP) PO SCH (10:35)
--- NOTE | 2018-10-07 14:46 | PN ---
Psychiatric Progress Note Vital Signs: Vital Signs Period Temp Pulse Resp BP Sys/Ramirez Pulse Ox Last 24 Hr 98.5 F 77 18-20 145/93 Date of Session: 10/07/18 Chief Complaint:: Discharge Note HPI: Patient addressing Alcohol, Cocaine and Cannabis Dependence comorbid with NicotineDependence, Posttraumatic Stress Disorder, Substance-Induced Mood Disorder and Substance-Induced Sleep Disorder ROS: Asthma, HTN, Hep C, Seizure, Gout, Arthritis left knee were medically managed Current Medications: Active Medications Generic Name Dose Route Start Last Admin Trade Name Freq PRN Reason Stop Dose Admin Acetaminophen 650 mg 09/21/18 16:16 Tylenol - PO Q4H PRN FEVER Al Hydroxide/Mg Hydroxide 30 ml 09/21/18 16:16 Mylanta Oral Suspension - PO Q6H PRN DYSPEPSIA Albuterol Sulfate 2 puff 09/21/18 16:17 09/23/18 12:36 Ventolin Hfa Inhaler - IH 2 puff Q4H PRN Administration ASTHMA Amlodipine Besylate 10 mg 09/26/18 10:00 10/07/18 10:35 Norvasc - PO 10 mg DAILY REDD Administration Aspirin 81 mg 10/03/18 14:00 10/07/18 10:35 Asa - PO 81 mg DAILY REDD Administration Cyclobenzaprine HCl 10 mg 10/03/18 14:01 10/03/18 21:31 Flexeril - PO 10 mg TID PRN Administration MUSCLE SPASMS Eucalyptus/Menthol/Phenol/Sorbitol 1 each 09/21/18 16:16 Cepastat Lozenge - MM Q4H PRN SORE THROAT Guaifenesin 10 ml 09/21/18 16:16 Robitussin Dm - PO Q6H PRN COUGH Hydroxyzine Pamoate 50 mg 09/21/18 16:16 Vistaril - PO Q4H PRN AGITATION Loperamide HCl 4 mg 09/21/18 16:16 Imodium - PO Q6H PRN DIARRHEA Magnesium Citrate 300 ml 09/21/18 16:16 Citroma - PO Q48H PRN CONSTIPATION Magnesium Hydroxide 30 ml 09/21/18 16:16 Milk Of Magnesia - PO DAILY PRN CONSTIPATION Melatonin 5 mg 09/21/18 22:00 Melatonin PO HS PRN INSOMNIA Multivit/Folic Acid/Iron 1 tab 09/22/18 10:00 10/07/18 10:35 Vitamins (Sjr) - PO 1 tab DAILY REDD Administration Pseudoephedrine/Triprolidine 1 combo 09/21/18 16:16 Actifed - PO TID PRN NASAL CONGESTION Thiamine HCl 100 mg 09/21/18 22:00 10/06/18 21:30 Vitamin B1 - PO 100 mg HS REDD Administration Trazodone HCl 100 mg 09/21/18 22:00 10/06/18 21:30 Desyrel - PO 100 mg HS REDD Administration Current Side Effect: No Lab tests ordered: Yes Lab tests reviewed: Yes Provider note:: Patient will complete this program on 10/08/18. He has met his treatment goals and will continue to address his issues in penitentiary residential [facility] at [address] [place] [address]. 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 He responded well to Trazadone 100 mg po HS. Script for that medication will be electronically transmitted to [facility] at [address] [place] [address]. He is stable for discharge on 10/08/18 Total face to face time:: 35 Mental Status Exam - Mental Status Exam Alert and Oriented to: Time, Place, Person Cognitive Function: Fair Patient Appearance: Well Groomed Mood: Hopeful, Euthymic Affect: Appropriate Patient Behavior: Cooperative Speech Pattern: Clear Voice Loudness: Normal Thought Process: Intact, Goal Oriented Thought Disorder: Not Present Hallucinations: Denies Suicidal Ideation: Denies Homicidal Ideation: Denies Insight/Judgement: Fair Sleep: Fair Appetite: Good Muscle strength/Tone: Normal Gait/Station: Normal Psychiatric Treatment Plan - Problem List (1) Alcohol dependence Current Visit: No (2) Cocaine dependence Current Visit: No Qualifiers: (3) Cannabis dependence Current Visit: No (4) Nicotine dependence Current Visit: No (5) PTSD (post-traumatic stress disorder) Current Visit: Yes (6) Substance induced mood disorder Current Visit: Yes (7) Substance-induced sleep disorder Current Visit: Yes (8) Gout Current Visit: No (9) Arthritis of left knee Current Visit: No (10) Asthma Current Visit: No Qualifiers: (11) Essential hypertension Current Visit: No (12) Hepatitis C Current Visit: No Qualifiers: (13) Seizure Current Visit: No Comment: alcohol related seizures, not emdicated for it Initial treatment plan: Patient is discharged tomorrow and referred to [facility] for penitentiary residential treatment
[2018-10-07] MEDS: THIAMINE HCL 100 MG TABLET (FP) PO SCH (21:31)
[2018-10-07] MEDS: traZODone HCL 100 MG TABLET (FP) PO SCH (21:31)
[2018-10-08 07:10] VITALS: BP 138/96; PULSE 89; TEMP 98.1
[2018-10-08] MEDS: PRENATAL VITAMINS W/ FOLIC ACID TABLET (FP) PO SCH (09:03)
[2018-10-08] MEDS: ASPIRIN 81 MG CHEWABLE TABLETS PO SCH (09:03)
[2018-10-08] MEDS: amLODIPine BESYLATE 10 MG TABLET (FP) PO SCH (09:03)
[2018-10-08] MEDS ORDERED: PT OWN MED DRAWER 7, Y5N ONE (09:04)
== END 2018-10-08 09:15 | disposition home or self-care (01) | DRG 772 ==
LOC: YASAS 15:25 → Y3W 15:26
PROVIDERS: ADMIT Psychiatry & Neurology Psychiatry; ATTEND Psychiatry & Neurology Psychiatry
PROC: HZ42ZZZ Group Counseling for Substance Abuse Treatment, Cognitive-Behavioral (ICD-10-PCS; principal; 2018-09-21)
DX: F10.20 Alcohol dependence, uncomplicated (principal); F14.20 Cocaine dependence, uncomplicated; F12.20 Cannabis dependence, uncomplicated; F17.210 Nicotine dependence, cigarettes, uncomplicated; F43.10 Post-traumatic stress disorder, unspecified; F19.24 Other psychoactive substance dependence with psychoactive substance-induced mood disorder; F19.282 Other psychoactive substance dependence with psychoactive substance-induced sleep disorder; I10 Essential (primary) hypertension; J45.909 Unspecified asthma, uncomplicated; M10.9 Gout, unspecified; M13.862 Other specified arthritis, left knee; B18.2 Chronic viral hepatitis C; R60.9 Edema, unspecified; Z86.69 Personal history of other diseases of the nervous system and sense organs; Z59.0 Homelessness
CPT/HCPCS: J0735

== ENCOUNTER 2018-12-02 10:39 | Inpatient (IN) | payer OTHER ==
[2018-12-02 12:39] VITALS: BMI 31.0
--- NOTE | 2018-12-02 14:12 | HP ---
CIWA Score Nausea/Vomitin-No Nausea/No Vomiting Muscle Tremors: 4-Moderate,w/Arms Extend Anxiety: 1-Mildly Anxious Agitation: 0-Normal Activity Paroxysmal Sweats: 4-Forehead w/Sweat Beads Orientation: 1-Uncertain about Date Tacttile Disturbances: 2-Mild Itch/Numbness/Burn Auditory Disturbances: 0-None Visual Disturbances: 0-None Headache: 2-Mild CIWA-Ar Total Score: 14 - Admission Criteria OASAS Guidelines: Admission for Medically Managed Detox: Requires at least one of the followin. CIWA greater than 12 2. Seizures within the past 24 hours 3. Delirium tremens within the past 24 hours 4. Hallucinations within the past 24 hours 5. Acute intervention needed for co occurring medical disorder 6. Acute intervention needed for co occurring psychiatric disorder 7. Severe withdrawal that cannot be handled at a lower level of care (continued vomiting, continued diarrhea, abnormal vital signs) requiring intravenous medication and/or fluids 8. Patient presents the following: CIWA greater than 12 Admission Criteria Met: Admission criteria met Admission ROS S - HPI Chief Complaint: i came here for alcohol detox Allergies/Adverse Reactions: Allergies Allergy/AdvReac Type Severity Reaction Status Date / Time Fish Containing Products Allergy Severe Rash Verified 12/02/18 13:10 No Known Drug Allergies Allergy Verified 12/02/18 13:10 [email or web address] Allergy Severe Rash Uncoded 12/02/18 13:10 [email or web address] Allergy Uncoded 12/02/18 13:10 seafood Allergy Rash Uncoded 12/02/18 13:10 History of Present Illness: A 58year old male who came for alcohol detox. Has history of alcohol abuse, Asthma, HTN, and depression. labs positive for thc and benzo, but denies any use any benzos. Uses marijuana daily. Can't recall his home BP meds Exam Limitations: No Limitations - Ebola screening Have you traveled outside of the country in the last 21 days: No Have you had contact with anyone from an Ebola affected area: No Have you been sick,other than usual withdrawal symptoms: No - Review of Systems EENT: reports: No Symptoms Reported Respiratory: reports: No Symptoms reported Cardiac: reports: See HPI GI: reports: No Symptoms Reported : reports: No Symptoms Reported Musculoskeletal: reports: Joint Pain Integumentary: reports: Dryness Neuro: reports: Headache Endocrine: reports: No Symptoms Reported Hematology: reports: No Symptoms Reported Psychiatric: reports: Depressed Patient History - Patient Medical History Hx Anemia: No Hx Asthma: Yes Hx Chronic Obstructive Pulmonary Disease (COPD): No Hx Cancer: No Hx Cardiac Disorders: No Hx Congestive Heart Failure: No Hx Hypertension: Yes Hx Pacemaker: No HX Cerebrovascular Accident: No Hx Seizures: No Hx Dementia: No Hx Diabetes: No Hx Gastrointestinal Disorders: No Hx Liver Disease: No Hx Genitourinary Disorders: No Hx Sexually Transmitted Disorders: No Hx Renal Disease (ESRD): No Hx Thyroid Disease: No Hx Human Immunodeficiency Virus (HIV): No (last 2016 negative) Hx Hepatitis C: Yes (treated in 2017) Hx Depression: Yes Hx Suicide Attempt: No Hx Bipolar Disorder: No Hx Schizophrenia: No - Patient Surgical History Past Surgical History: Yes Hx Neurologic Surgery: No Hx Cataract Extraction: No Hx Cardiac Surgery: No Hx Lung Surgery: No Hx Breast Surgery: No Hx Breast Biopsy: No Hx Abdominal Surgery: No Hx Appendectomy: No Hx Cholecystectomy: No Hx Genitourinary Surgery: No Hx Section: No Hx Orthopedic Surgery: No Other Surgical History: SURGERY ON LEFT HAND IN 1976 Anesthesia Reaction: No - PPD History Previous Implant?: Yes Documented Results: Negative w/proof Date: 09/19/18 Results: 0 mm PPD to be Administered?: No - Reproductive History Patient : No - Smoking Cessation Smoking history: Current every day smoker Have you smoked in the past 12 months: Yes Aproximately how many cigarettes per day: 20 Cigars Per Day: 0 Hx Chewing Tobacco Use: No Initiated information on smoking cessation: Yes 'Breaking Loose' booklet given: 12/02/18 - Substance & Tx. History Hx Alcohol Use: Yes Hx Substance Use: Yes Substance Use Type: Alcohol, Marijuana Hx Substance Use Treatment: Yes (last detox [facility] 09/2018) - Substances Abused Alcohol Route: Oral Frequency: Daily Amount used: 3 pt. Vodka, 1 six beer (12 oz) Age of first use: 8 Date of Last Use: 12/02/18 Marijuana/Hashish Route: Smoking Frequency: Daily Amount used: 3 joints Age of first use: 12 Date of Last Use: 12/02/18 Family Disease History - Family Disease History Family Disease History: Other: Father (alcohol,), Mother (alcohol, ), Brother (ADDICTED TO ETOH) Admission Physical Exam [facility] - Vital Signs Vital Signs: Vital Signs - 24 hr 12/02/18 12:38 Temperature 98.4 F Pulse Rate 99 H Respiratory 20 Rate Blood Pressure 98/63 - Physical General Appearance: Yes: Disheveled, Alcohol on Breath, Tremorous, Sweating, Anxious HEENTM: Yes: EOMI, CAILIN Cleared for Admission [facility] - Detox or Rehab [facility] Level of Care: Medically Managed Detox Regimen/Protocol: Librium [facility] Breath Alcohol Content Breath Alcohol Content: 0 Urine Drug Screen - Results Drug Screen Negative: No Urine Drug Screen Results: THC-Marijuana, BZO-Benzodiazepines Inpatient Rehab Admission - Rehab Decision to Admit Inpatient rehab admission?: No
[2018-12-02] MEDS ORDERED: MAGNESIUM HYDROX 2400MG/30ML ORAL SUSPENSION 30 ML CUP PO PRN (14:39)
[2018-12-02] MEDS ORDERED: MENTHOL/PHENOL 1 EACH UD MM PRN (14:39)
[2018-12-02] MEDS ORDERED: MELATONIN 5 MG TABLETS PO PRN (14:39)
[2018-12-02] MEDS ORDERED: MAGNESIUM CITRATE 300 ML BOTTLE PO PRN (14:39)
[2018-12-02] MEDS ORDERED: METHOCARBAMOL 500 MG TABLET PO PRN (14:39)
[2018-12-02] MEDS ORDERED: hydrOXYzine PAMOATE 25 MG CAPSULE (FP) PO PRN (14:39)
[2018-12-02] MEDS ORDERED: IBUPROFEN 400 MG TABLET (FP) PO PRN (14:39)
[2018-12-02] MEDS ORDERED: MAG HYDROX/AL HYDROX/SIMETH 30 ML UNIT-DOSE CUP PO PRN (14:39)
[2018-12-02] MEDS ORDERED: chlordiazePOXIDE HCL 25 MG CAPSULE PO PRN (14:39)
[2018-12-02] MEDS ORDERED: ACETAMINOPHEN 325 MG TABLET (FP) PO PRN ×2 (14:39)
[2018-12-02] MEDS ORDERED: BISMUTH SUBSALICYLATE 524 MG/30 ML UD PO PRN (14:39)
[2018-12-02] MEDS ORDERED: ALBUTEROL SO4 8 GM HFA INHALER IH PRN (14:46)
[2018-12-02] MEDS: THIAMINE HCL 100 MG TABLET (FP) PO SCH (22:26)
[2018-12-02] MEDS: chlordiazePOXIDE HCL 25 MG CAPSULE PO SCH (22:26)
[2018-12-03] MEDS: chlordiazePOXIDE HCL 25 MG CAPSULE PO SCH ×4 (06:07→22:30)
[2018-12-03] MEDS: PRENATAL VITAMINS W/ FOLIC ACID TABLET (FP) PO SCH (10:51)
[2018-12-03 11:02] LABS: HEMATOCRIT 40.5 % (35.4-49); HEMOGLOBIN 13.7 GM/dL (11.7-16.9); MCH 32.7 pg (25.7-33.7); MCHC 33.9 g/dl (32.0-35.9); MEAN CELL VOLUME 96.5 fl (80-96); MEAN PLT VOLUME 10.2 fl (7.5-11.1); PLATELET COUNT 235 K/MM3 (134-434); RDW 14.6 % (11.9-15.9); WHITE BLOOD COUNT 8.4 K/mm3 (4.0-10.0)
[2018-12-03 11:30] LABS: ALBUMIN 3.5 g/dl (3.4-5.0); ALK PHOS 108 U/L (45-117); ANION GAP 2 MMOL/L (8-16); BILIRUBIN,TOTAL 1.1 mg/dL (0.2-1); BLOOD UREA NITROGEN 16 mg/dL (7-18); CHLORIDE 110 mmol/L (98-107); CO2 31 mmol/L (21-32); GLUCOSE,RANDOM 108 mg/dL (74-106); POTASSIUM 4.3 mmol/L (3.5-5.1); SGOT/AST 14 U/L (15-37); SGPT/ALT 17 U/L (13-61); SODIUM 142 mmol/L (136-145); TOT PROT 7.1 g/dl (6.4-8.2)
--- NOTE | 2018-12-03 11:46 | PN ---
[facility] CIWA - CIWA Score Nausea/Vomitin-No Nausea/No Vomiting Muscle Tremors: 3 Anxiety: 2 Agitation: 1-Slight > Activity Paroxysmal Sweats: 1-Minimal Palms Moist Orientation: 2-Disoriented Date<2 days Tacttile Disturbances: 0-None Auditory Disturbances: 0-None Visual Disturbances: 0-None Headache: 1-Very Mild CIWA-Ar Total Score: 10 S Progress Note (SOAP) Subjective: reporting that he is doing well in the detox unit and feeling better with the regimen Objective: 12/03/18 11:45 Vital Signs Temperature 97.4 F L 12/03/18 10:22 Pulse Rate 86 12/03/18 10:22 Respiratory Rate 18 12/03/18 10:22 Blood Pressure 124/78 12/03/18 10:22 O2 Sat by Pulse Oximetry (%) Laboratory Last Values WBC 8.4 K/mm3 (4.0-10.0) 12/03/18 06:30 RBC 4.20 M/mm3 (4.00-5.60) 12/03/18 06:30 Hgb 13.7 GM/dL (11.7-16.9) 12/03/18 06:30 Hct 40.5 % (35.4-49) 12/03/18 06:30 MCV 96.5 fl (80-96) H 12/03/18 06:30 MCH 32.7 pg (25.7-33.7) 12/03/18 06:30 MCHC 33.9 g/dl (32.0-35.9) 12/03/18 06:30 RDW 14.6 % (11.9-15.9) 12/03/18 06:30 Plt Count 235 K/MM3 (134-434) D 12/03/18 06:30 MPV 10.2 fl (7.5-11.1) 12/03/18 06:30 Sodium 142 mmol/L (136-145) 12/03/18 06:30 Potassium 4.3 mmol/L (3.5-5.1) 12/03/18 06:30 Chloride 110 mmol/L (98-107) H 12/03/18 06:30 Carbon Dioxide 31 mmol/L (21-32) 12/03/18 06:30 Anion Gap 2 MMOL/L (8-16) L 12/03/18 06:30 BUN 16 mg/dL (7-18) 12/03/18 06:30 Creatinine 1.0 mg/dL (0.55-1.3) 12/03/18 06:30 Creat Clearance w eGFR 76.48 (>60) 12/03/18 06:30 Random Glucose 108 mg/dL (74-106) H 12/03/18 06:30 Calcium 9.0 mg/dL (8.5-10.1) 12/03/18 06:30 Total Bilirubin 1.1 mg/dL (0.2-1) H 12/03/18 06:30 AST 14 U/L (15-37) L 12/03/18 06:30 ALT 17 U/L (13-61) 12/03/18 06:30 Alkaline Phosphatase 108 U/L (45-117) 12/03/18 06:30 Total Protein 7.1 g/dl (6.4-8.2) 12/03/18 06:30 Albumin 3.5 g/dl (3.4-5.0) 12/03/18 06:30 lab noted Assessment: 12/03/18 11:45 withdrawal sx Plan: continue detox
--- NOTE | 2018-12-03 16:31 | CONSULT ---
[facility] Psychiatric Consult - Data Date of interview: 12/03/18 Admission source: [facility] Identifying data: Patient is approached, at bedside, by the psychiatric team ( MD + medical students). For the requested psychiatric evaluation. Mr Leal keshav.
[2018-12-03] MEDS: THIAMINE HCL 100 MG TABLET (FP) PO SCH (22:29)
[2018-12-04] MEDS: chlordiazePOXIDE HCL 25 MG CAPSULE PO SCH ×3 (05:50→17:48)
[2018-12-04] MEDS: PRENATAL VITAMINS W/ FOLIC ACID TABLET (FP) PO SCH (10:49)
[2018-12-04] MEDS ORDERED: cloNIDine HCL 0.1 MG TABLET PO PRN (13:40)
--- NOTE | 2018-12-04 13:43 | PN ---
[facility] CIWA - CIWA Score Nausea/Vomitin-No Nausea/No Vomiting Muscle Tremors: 1-None Visible, but Fidelity Anxiety: 1-Mildly Anxious Agitation: 2 Paroxysmal Sweats: 1-Minimal Palms Moist Orientation: 2-Disoriented Date<2 days Tacttile Disturbances: 0-None Auditory Disturbances: 0-None Visual Disturbances: 0-None Headache: 1-Very Mild CIWA-Ar Total Score: 8 S Progress Note (SOAP) Subjective: having fluctuated bp order clonidine 0.1 mg prn reporting tiredness otherwise doing well Objective: 12/04/18 13:45 Vital Signs Temperature 99.3 F 12/04/18 13:27 Pulse Rate 89 12/04/18 13:27 Respiratory Rate 20 12/04/18 13:27 Blood Pressure 153/89 12/04/18 13:27 O2 Sat by Pulse Oximetry (%) Laboratory Last Values WBC 8.4 K/mm3 (4.0-10.0) 12/03/18 06:30 RBC 4.20 M/mm3 (4.00-5.60) 12/03/18 06:30 Hgb 13.7 GM/dL (11.7-16.9) 12/03/18 06:30 Hct 40.5 % (35.4-49) 12/03/18 06:30 MCV 96.5 fl (80-96) H 12/03/18 06:30 MCH 32.7 pg (25.7-33.7) 12/03/18 06:30 MCHC 33.9 g/dl (32.0-35.9) 12/03/18 06:30 RDW 14.6 % (11.9-15.9) 12/03/18 06:30 Plt Count 235 K/MM3 (134-434) D 12/03/18 06:30 MPV 10.2 fl (7.5-11.1) 12/03/18 06:30 Sodium 142 mmol/L (136-145) 12/03/18 06:30 Potassium 4.3 mmol/L (3.5-5.1) 12/03/18 06:30 Chloride 110 mmol/L (98-107) H 12/03/18 06:30 Carbon Dioxide 31 mmol/L (21-32) 12/03/18 06:30 Anion Gap 2 MMOL/L (8-16) L 12/03/18 06:30 BUN 16 mg/dL (7-18) 12/03/18 06:30 Creatinine 1.0 mg/dL (0.55-1.3) 12/03/18 06:30 Creat Clearance w eGFR 76.48 (>60) 12/03/18 06:30 Random Glucose 108 mg/dL (74-106) H 12/03/18 06:30 Calcium 9.0 mg/dL (8.5-10.1) 12/03/18 06:30 Total Bilirubin 1.1 mg/dL (0.2-1) H 12/03/18 06:30 AST 14 U/L (15-37) L 12/03/18 06:30 ALT 17 U/L (13-61) 12/03/18 06:30 Alkaline Phosphatase 108 U/L (45-117) 12/03/18 06:30 Total Protein 7.1 g/dl (6.4-8.2) 12/03/18 06:30 Albumin 3.5 g/dl (3.4-5.0) 12/03/18 06:30 RPR Titer Nonreactive (NONREACTIVE) 12/03/18 06:30 lab noted Assessment: 12/04/18 13:46 withdrawal sx Plan: continue detox
[2018-12-04] MEDS ORDERED: chlordiazePOXIDE HCL 10 MG CAPSULE PO PRN (23:00)
[2018-12-04] MEDS: chlordiazePOXIDE HCL 10 MG CAPSULE PO SCH (23:11)
[2018-12-04] MEDS: THIAMINE HCL 100 MG TABLET (FP) PO SCH (23:11)
[2018-12-05] MEDS: chlordiazePOXIDE HCL 10 MG CAPSULE PO SCH ×2 (06:07→10:05)
[2018-12-05 09:35] VITALS: BP 119/72; PULSE 105; TEMP 98.8
[2018-12-05] MEDS: PRENATAL VITAMINS W/ FOLIC ACID TABLET (FP) PO SCH (10:05)
--- NOTE | 2018-12-05 18:01 | PN ---
[facility] Progress Note (SOAP) Subjective: Patient denies current Withdrawal / Detox symptoms and reports that he feels well overall. Objective: PATIENT A & O X 3, OBSERVED AMBULATING ON UNIT. IN NO ACUTE DISTRESS. 12/05/18 17:59 Vital Signs Temperature 98.8 F 12/05/18 09:34 Pulse Rate 105 H 12/05/18 09:34 Respiratory Rate 18 12/05/18 09:34 Blood Pressure 119/72 12/05/18 09:34 O2 Sat by Pulse Oximetry (%) Laboratory Tests 12/03/18 12/03/18 12/03/18 06:30 06:30 06:30 WBC 8.4 RBC 4.20 Hgb 13.7 Hct 40.5 MCV 96.5 H MCH 32.7 MCHC 33.9 RDW 14.6 Plt Count 235 D MPV 10.2 Sodium 142 Potassium 4.3 Chloride 110 H Carbon Dioxide 31 Anion Gap 2 L BUN 16 Creatinine 1.0 Creat Clearance w eGFR 76.48 Random Glucose 108 H Calcium 9.0 Total Bilirubin 1.1 H AST 14 L ALT 17 Alkaline Phosphatase 108 Total Protein 7.1 Albumin 3.5 RPR Titer Nonreactive LABS NOTED. Assessment: 12/05/18 18:00 COMPLETION OF DETOX REGIMEN. Plan: SINCE PATIENT DENIES CURRENT WITHDRAWAL / DETOX SYMPTOMS AND REPORTS THAT HE FEELS WELL OVERALL, PATIENT GRANTED AN EARLY DISCHARGE FROM DETOX UNIT TODAY SO THAT HE MAY PROCEED ON TO [facility] ([place], [place]), A BED IS CURRENTLY AVAILABLE THERE FOR ADMISSION AT THIS TIME.
--- NOTE | 2018-12-05 18:07 | DS ---
[facility] Detox Discharge Summary Admission Date: 12/02/18 Discharge Date: 12/05/18 - History Present History: Alcohol Dependence, Cannabis Dependence Additional Comments: PATIENT GOING TO [facility] ([place], [place]). PATIENT WAS DISCHARGED FROM DETOX UNIT IN STABLE MEDICAL CONDITION. Pertinent Past History: Asthma, Hep C (Treated), HTN, History of Depression, Nicotine Dependence. - Physical Exam Results Vital Signs: Vital Signs Temperature 98.8 F 12/05/18 09:34 Pulse Rate 105 H 12/05/18 09:34 Respiratory Rate 18 12/05/18 09:34 Blood Pressure 119/72 12/05/18 09:34 O2 Sat by Pulse Oximetry (%) Pertinent Admission Physical Exam Findings: WITHDRAWAL SYMPTOMS. Laboratory Tests 12/03/18 12/03/18 12/03/18 06:30 06:30 06:30 WBC 8.4 RBC 4.20 Hgb 13.7 Hct 40.5 MCV 96.5 H MCH 32.7 MCHC 33.9 RDW 14.6 Plt Count 235 D MPV 10.2 Sodium 142 Potassium 4.3 Chloride 110 H Carbon Dioxide 31 Anion Gap 2 L BUN 16 Creatinine 1.0 Creat Clearance w eGFR 76.48 Random Glucose 108 H Calcium 9.0 Total Bilirubin 1.1 H AST 14 L ALT 17 Alkaline Phosphatase 108 Total Protein 7.1 Albumin 3.5 RPR Titer Nonreactive LABS NOTED. - Treatment Hospital Course: Detox Protocol Followed, Detoxed Safely, Responded well, Discharged Condition Good, Rehab Referral Accepted Patient has Accepted a Rehab Referral to: [facility] ([place], [place]). - Medication Discharge Medications: Ambulatory Orders Albuterol Sulfate Inhaler - [Ventolin HFA Inhaler -] 2 inh PO Q4H PRN #1 inhaler 10/07/18 Amlodipine Besylate [Norvasc -] 10 mg PO DAILY #14 tablet 10/07/18 Aspirin 81 mg PO DAILY #14 tab.chew 10/07/18 traZODone HCL [Trazodone HCl] 100 mg PO HS #30 tablet 10/07/18 - Diagnosis (1) Alcohol dependence with uncomplicated withdrawal Status: Acute (2) Cannabis dependence Status: Acute (3) Depression Status: Acute Qualifiers: Depression Type: unspecified Qualified Code(s): F32.9 - Major depressive disorder, single episode, unspecified (4) Asthma Status: Chronic Qualifiers: Asthma severity: mild Asthma persistence: intermittent Asthma complication type: uncomplicated Qualified Code(s): J45.20 - Mild intermittent asthma, uncomplicated (5) Essential hypertension Status: Chronic (6) Hepatitis C Status: Chronic Qualifiers: Viral hepatitis chronicity: chronic Hepatic coma status: without hepatic coma Qualified Code(s): B18.2 - Chronic viral hepatitis C (7) Nicotine dependence Status: Chronic - AMA Did Patient Leave Against Medical Advice: No
[2018-12-05] MEDS ORDERED: chlordiazePOXIDE HCL 10 MG CAPSULE PO SCH (23:00)
== END 2018-12-05 10:17 | disposition home or self-care (01) | DRG 775 ==
LOC: YASAS 10:39 → Y3N 15:05
PROVIDERS: ADMIT Surgery; ATTEND Surgery
PROC: HZ2ZZZZ Detoxification Services for Substance Abuse Treatment (ICD-10-PCS; principal; 2018-12-02)
DX: F10.230 Alcohol dependence with withdrawal, uncomplicated (principal); F12.20 Cannabis dependence, uncomplicated; F17.213 Nicotine dependence, cigarettes, with withdrawal; F31.9 Bipolar disorder, unspecified; J45.20 Mild intermittent asthma, uncomplicated; B18.2 Chronic viral hepatitis C; Z59.0 Homelessness
CPT/HCPCS: 36415; 80053; 85027; 86593

== ENCOUNTER 2019-01-02 08:21 | Inpatient (IN) | payer OTHER ==
[2019-01-02 08:58] VITALS: BMI 30.4
--- NOTE | 2019-01-02 09:37 | HP ---
CIWA Score Nausea/Vomitin Muscle Tremors: 2 Anxiety: 2 Agitation: 2 Paroxysmal Sweats: 1-Minimal Palms Moist Orientation: 0-Oriented Tacttile Disturbances: 1-Very Mild Itch/Numbness Auditory Disturbances: 1-Very Mild Visual Disturbances: 0-None Headache: 2-Mild CIWA-Ar Total Score: 13 - Admission Criteria OASAS Guidelines: Admission for Medically Managed Detox: Requires at least one of the followin. CIWA greater than 12 2. Seizures within the past 24 hours 3. Delirium tremens within the past 24 hours 4. Hallucinations within the past 24 hours 5. Acute intervention needed for co occurring medical disorder 6. Acute intervention needed for co occurring psychiatric disorder 7. Severe withdrawal that cannot be handled at a lower level of care (continued vomiting, continued diarrhea, abnormal vital signs) requiring intravenous medication and/or fluids 8. Admission ROS S - HPI Chief Complaint: i need help to stop drinking alcohol and marijuana Allergies/Adverse Reactions: Allergies Allergy/AdvReac Type Severity Reaction Status Date / Time Fish Containing Products Allergy Severe Rash Verified 01/02/19 08:52 No Known Drug Allergies Allergy Verified 01/02/19 08:52 [email or web address] Allergy Severe Rash Uncoded 01/02/19 08:52 [email or web address] Allergy Uncoded 01/02/19 08:52 seafood Allergy Rash Uncoded 01/02/19 08:52 History of Present Illness: this 58 years old male with alcohol and marijuana dependence seeking detox, withdrawal symptom, seen in [place] last night last detox [facility] 12/02/18 to keep relapsing hypertension on med nicotine dependence 1 pack requesting nicotine patchongest period of sobriety 20 years ptsd ,depression plan to go to rehab after detox asthma hepatitis c treated Exam Limitations: No Limitations - Ebola screening Have you traveled outside of the country in the last 21 days: No (N) Have you had contact with anyone from an Ebola affected area: No Do you have a fever: No - Review of Systems Constitutional: Loss of Appetite, Malaise, Night Sweats, Changes in sleep, Weakness, Unintentional Wgt. Loss EENT: reports: Tearing, Nose Congestion Respiratory: reports: No Symptoms reported Cardiac: reports: No Symptoms Reported GI: reports: Nausea, Indigestion, Abdominal cramping Musculoskeletal: reports: Back Pain, Muscle Pain Integumentary: reports: Dryness Neuro: reports: Tingling, Tremors Endocrine: reports: No Symptoms Reported Hematology: reports: No Symptoms Reported Psychiatric: reports: No Sypmtoms Reported, Judgement Intact, Mood/Affect Appropiate, Orientated x3, Depressed (ptsd) Other Systems: Reviewed and Negative Patient History - Patient Medical History Hx Anemia: No Hx Asthma: Yes Hx Chronic Obstructive Pulmonary Disease (COPD): No Hx Cancer: No Hx Cardiac Disorders: No Hx Congestive Heart Failure: No Hx Hypertension: Yes Hx Pacemaker: No HX Cerebrovascular Accident: No Hx Seizures: No Hx Dementia: No Hx Diabetes: No Hx Gastrointestinal Disorders: No Hx Liver Disease: No Hx Genitourinary Disorders: No Hx Sexually Transmitted Disorders: No Hx Renal Disease (ESRD): No Hx Thyroid Disease: No Hx Human Immunodeficiency Virus (HIV): No (12/02 negative) Hx Hepatitis C: Yes (treated in 2016) Hx Depression: Yes Hx Suicide Attempt: No Hx Bipolar Disorder: No Hx Schizophrenia: No - Patient Surgical History Past Surgical History: Yes Hx Neurologic Surgery: No Hx Cataract Extraction: No Hx Cardiac Surgery: No Hx Lung Surgery: No Hx Breast Surgery: No Hx Breast Biopsy: No Hx Abdominal Surgery: No Hx Appendectomy: No Hx Cholecystectomy: No Hx Genitourinary Surgery: No Hx Section: No Hx Orthopedic Surgery: No Other Surgical History: SURGERY ON LEFT HAND IN 1976 Anesthesia Reaction: No - PPD History Previous Implant?: Yes Documented Results: Positive w/proof Date: 09/19/18 Results: 0 mm PPD to be Administered?: No - Smoking Cessation Smoking history: Current every day smoker Have you smoked in the past 12 months: Yes Aproximately how many cigarettes per day: 20 Cigars Per Day: 0 Hx Chewing Tobacco Use: No Initiated information on smoking cessation: Yes 'Breaking Loose' booklet given: 01/02/19 - Substance & Tx. History Hx Alcohol Use: Yes Hx Substance Use: Yes Substance Use Type: Alcohol, Marijuana Hx Substance Use Treatment: Yes ([facility] 12/02/18 to 12/05/18) - Substances abused Alcohol Substance route: Oral Frequency: Daily Amount used: 2 PINTS VODKA Age of first use: 12 Date of last use: 01/02/19 Marijuana/Hashish Substance route: Smoking Frequency: Daily Amount used: 1 BAG Age of first use: 12 Date of last use: 01/01/19 Family Disease History - Family Disease History Family Disease History: Other: Father (alcohol,), Mother (alcohol, ), Brother (ADDICTED TO ETOH) Admission Physical Exam [facility] - Vital Signs Vital Signs: Vital Signs - 24 hr 01/02/19 01/02/19 08:51 09:21 Temperature 98.6 F 98.6 F Pulse Rate 96 H 96 H Respiratory 18 18 Rate Blood Pressure 114/79 114/79 - Physical General Appearance: Yes: Moderate Distress, Tremorous, Irritable, Sweating, Anxious HEENTM: Yes: Normal ENT Inspection, CAILIN, Pharynx Normal Respiratory: Yes: Within Normal Limits, Lungs Clear, Normal Breath Sounds Neck: Yes: No masses,lesions,Nodules, Supple, Trachea in good position Breast: Yes: Within Normal Limits Cardiology: Yes: Within Normal Limits, Regular Rhythm, Regular Rate, S1, S2 Abdominal: Yes: Within Normal Limits, Normal Bowel Sounds, Non Tender, Soft, Organomegaly Genitourinary: Yes: Within Normal Limits Musculoskeletal: Yes: full range of Motion, Back pain, Muscle Pain Extremities: Yes: Tremors, Other (scar of lft hand) Neurological: Yes: pediatrics hospitalist II-XII NML intact, Fully Oriented, Alert, Motor Strength 5/5 Integumentary: Yes: Dry Lymphatic: Yes: Within Normal Limits - Diagnostic (1) Alcohol dependence with uncomplicated withdrawal Current Visit: Yes Status: Acute (2) Cannabis dependence Current Visit: Yes Status: Chronic (3) Syncope Current Visit: No Status: Acute (4) Arthritis of left knee Current Visit: No Status: Chronic (5) Asthma Current Visit: No Status: Chronic Qualifiers: Asthma severity: mild Asthma persistence: intermittent Asthma complication type: uncomplicated Qualified Code(s): J45.20 - Mild intermittent asthma, uncomplicated (6) Essential hypertension Current Visit: No Status: Chronic (7) Hepatitis C Current Visit: No Status: Chronic Qualifiers: Viral hepatitis chronicity: chronic Hepatic coma status: without hepatic coma Qualified Code(s): B18.2 - Chronic viral hepatitis C (8) PTSD (post-traumatic stress disorder) Current Visit: Yes Status: Chronic (9) Seizure Current Visit: No Status: Chronic Comment: alcohol related seizures, not emdicated for it Cleared for Admission [facility] - Detox or Rehab [facility] Level of Care: Medically Managed Detox Regimen/Protocol: Librium Breathalyzer - Breathalyzer Breathalyzer: 0 Urine Drug Screen - Test Device Lot number: [id number] Expiration date: 08/15/20 - Control Is test valid?: Yes - Results Drug screen NEGATIVE: No Urine drug screen results: THC-Marijuana, BZO-Benzodiazepines Inpatient Rehab Admission - Rehab Decision to Admit Inpatient rehab admission?: No
[2019-01-02] MEDS ORDERED: BISMUTH SUBSALICYLATE 262 MG/15 ML BTL PO PRN (09:45)
[2019-01-02] MEDS ORDERED: MENTHOL/PHENOL 1 EACH UD MM PRN (09:45)
[2019-01-02] MEDS ORDERED: MELATONIN 5 MG TABLETS PO PRN (09:45)
[2019-01-02] MEDS ORDERED: METHOCARBAMOL 500 MG TABLET PO PRN (09:45)
[2019-01-02] MEDS ORDERED: IBUPROFEN 400 MG TABLET (FP) PO PRN (09:45)
[2019-01-02] MEDS ORDERED: hydrOXYzine PAMOATE 25 MG CAPSULE (FP) PO PRN (09:45)
[2019-01-02] MEDS ORDERED: MAGNESIUM HYDROX 2400MG/30ML ORAL SUSPENSION 30 ML CUP PO PRN (09:45)
[2019-01-02] MEDS ORDERED: MAGNESIUM CITRATE 300 ML BOTTLE PO PRN (09:45)
[2019-01-02] MEDS ORDERED: MAG HYDROX/AL HYDROX/SIMETH 30 ML UNIT-DOSE CUP PO PRN (09:45)
[2019-01-02] MEDS ORDERED: chlordiazePOXIDE HCL 25 MG CAPSULE PO PRN (09:45)
[2019-01-02] MEDS ORDERED: ACETAMINOPHEN 325 MG TABLET (FP) PO PRN ×2 (09:45)
[2019-01-02] MEDS ORDERED: ALBUTEROL SO4 8 GM HFA INHALER IH PRN (09:47)
[2019-01-02] MEDS: amLODIPine BESYLATE 10 MG TABLET (FP) PO SCH (10:29)
[2019-01-02] MEDS: NICOTINE 21 MG/24 HOURS TOPICAL PATCH TD SCH (10:29)
[2019-01-02] MEDS: ASPIRIN 81 MG CHEWABLE TABLETS PO SCH (10:29)
[2019-01-02] MEDS: chlordiazePOXIDE HCL 25 MG CAPSULE PO SCH ×3 (10:29→22:30)
[2019-01-02] MEDS: PRENATAL VITAMINS W/ FOLIC ACID TABLET (FP) PO SCH (10:30)
--- NOTE | 2019-01-02 11:18 | CONSULT ---
[facility] Psychiatric Consult - Data Date of interview: 01/02/19 Admission source: [facility] Identifying data: This is one of multiple admissions to [facility] for this 58 y/ o male self-referred for detoxification (alcohol, cannabis). Examined at [address] [place] [address]. Patient is , a father of two, homeless, unemployed and supported on SSI benefits. Substance Abuse History: Discussed in this session. Details in the following segment of current [facility] report : Smoking history: Current every day smoker. Have you smoked in the past 12 months: Yes. Aproximately how many cigarettes per day: 20. Cigars Per Day: 0. Hx Chewing Tobacco Use: No. Initiated information on smoking cessation: Yes. 'Breaking Loose' booklet given: . - Substance & Tx. History. Hx Alcohol Use: Yes. Hx Substance Use: Yes. Substance Use Type: Alcohol, Marijuana. Hx Substance Use Treatment: Yes ([facility] to 12/05/18). - Substances abused. Alcohol. Substance route: Oral. Frequency: Daily. Amount used: 2 PINTS VODKA. Age of first use: 12. Date of last use: 01/02/19. Marijuana/Hashish. Substance route: Smoking. Frequency: Daily. Amount used: 1 BAG. Age of first use: 12. Date of last use : 01/01/19 Medical History: Medical profile is remarkable for hepatitis C, bronchial asthma , hypertension, arthritis (left knee), gout, alcohol-related seizures and a history of orthosurgery in 1976 (fracture of left hand). Psychiatric History: Patient reports a history of 3-5 psychiatric hospitalizations ([facility] + [facility]) . Diagnosed with MDD + PTSD more than 20 years ago. Mr Leal states that he is seeing a psychiatrist at the [facility] in [facility]. Prescribed abilify 10 mg/day + trazodone 100 mg/hs (self-report). Patient denies history of suicide attempts. Physical/Sexual Abuse/Trauma History: Patient denies. Additional Comment: Urine drug screen results: THC-Marijuana, BZO- Benzodiazepines. Noted. Mental Status Exam - Mental Status Exam Alert and Oriented to: Time, Place, Person Cognitive Function: Good Patient Appearance: Disheveled Mood: Withdrawn, Anxious Affect: Mood Congruent, Constricted Patient Behavior: Fatigued, Appropriate, Cooperative Speech Pattern: Clear Voice Loudness: Normal Thought Process: Goal Oriented Thought Disorder: Not Present Hallucinations: Denies Suicidal Ideation: Denies Homicidal Ideation: Denies Insight/Judgement: Poor Sleep: Poorly, Difficulty falling asleep Appetite: Good Muscle strength/Tone: Normal Gait/Station: Other (not observed ; patient resting in bed) Psychiatric Findings - Problem List ([place] 1, 2,3) (1) Alcohol dependence with uncomplicated withdrawal Current Visit: Yes Status: Acute (2) Cannabis dependence Current Visit: Yes Status: Chronic (3) Substance induced mood disorder Current Visit: Yes Status: Chronic (4) PTSD (post-traumatic stress disorder) Current Visit: Yes Status: Chronic (5) Insomnia Current Visit: Yes Status: Chronic - Initial Treatment Plan Initial Treatment Plan: Psychoeducation. Sleep hygiene. AA meetings. Detoxification. Groups. Trazodone 100 mg po hs. Ordered. side effects/benefits discussed with patient (made aware of potential for priapism). Consent (verbal) given to MD. Nguyen.
[2019-01-02 14:58] LABS: HEMATOCRIT 41.4 % (35.4-49); MCH 31.9 pg (25.7-33.7); MCHC 33.8 g/dl (32.0-35.9); MEAN CELL VOLUME 94.4 fl (80-96); MEAN PLT VOLUME 9.4 fl (7.5-11.1); PLATELET COUNT 264 K/MM3 (134-434); RBC 4.38 M/mm3 (4.00-5.60); RDW 13.8 % (11.9-15.9); WHITE BLOOD COUNT 8.2 K/mm3 (4.0-10.0)
[2019-01-02 15:09] LABS: ALBUMIN 3.6 g/dl (3.4-5.0); ALK PHOS 88 U/L (45-117); ANION GAP 5 MMOL/L (8-16); BILIRUBIN,TOTAL 0.8 mg/dL (0.2-1); BLOOD UREA NITROGEN 14 mg/dL (7-18); CALCIUM 9.2 mg/dL (8.5-10.1); CHLORIDE 103 mmol/L (98-107); CO2 27 mmol/L (21-32); CREATININE 0.8 mg/dL (0.55-1.3); GLUCOSE,RANDOM 92 mg/dL (74-106); POTASSIUM 4.3 mmol/L (3.5-5.1); SGOT/AST 14 U/L (15-37); SGPT/ALT 22 U/L (13-61); SODIUM 135 mmol/L (136-145); TOT PROT 7.6 g/dl (6.4-8.2)
[2019-01-02] MEDS: THIAMINE HCL 100 MG TABLET (FP) PO SCH (22:30)
[2019-01-02] MEDS: traZODone HCL 100 MG TABLET (FP) PO SCH (22:30)
[2019-01-02 23:56] LABS: EPI CELLS 1.6 /HPF (0-5/HPF); URINE APPEARANCE CLEAR; URINE BACTERIA 1.5 /hpf (NEGATIVE); URINE BILIRUBIN NEGATIVE (NEGATIVE); URINE CASTS 12 /lpf (0-8); URINE COLOR YELLOW; URINE GLUCOSE (UA) NEGATIVE (NEGATIVE); URINE KETONE TRACE (NEGATIVE); URINE LEUK ESTERASE TRACE (NEGATIVE); URINE NITRITE NEGATIVE (NEGATIVE); URINE PROTEIN NEGATIVE (NEGATIVE); URINE RBC 1 /hpf (0-4); URINE UROBILINOGEN 0.2 mg/dL (0.2-1.0); URINE WBC 2 /hpf (0-5)
[2019-01-03] MEDS: chlordiazePOXIDE HCL 25 MG CAPSULE PO SCH ×4 (05:58→22:26)
[2019-01-03] MEDS: amLODIPine BESYLATE 10 MG TABLET (FP) PO SCH (10:57)
[2019-01-03] MEDS: PRENATAL VITAMINS W/ FOLIC ACID TABLET (FP) PO SCH (10:57)
[2019-01-03] MEDS: NICOTINE 21 MG/24 HOURS TOPICAL PATCH TD SCH (10:57)
[2019-01-03] MEDS: ASPIRIN 81 MG CHEWABLE TABLETS PO SCH (10:57)
[2019-01-03] MEDS ORDERED: RANITIDINE HCL 150 MG TABLET (FP) PO ONE (14:20)
--- NOTE | 2019-01-03 16:32 | PN ---
S CIWA - CIWA Score Nausea/Vomitin-No Nausea/No Vomiting Muscle Tremors: None Anxiety: 2 Agitation: 0-Normal Activity Paroxysmal Sweats: 3 Orientation: 0-Oriented Tacttile Disturbances: 2-Mild Itch/Numbness/Burn Auditory Disturbances: 0-None Visual Disturbances: 2-Mild Sensitivity Headache: 0-None Present CIWA-Ar Total Score: 9 BHS Progress Note (SOAP) Subjective: Sweating, Stomach Cramping, Tremors. Objective: PATIENT A & O X 3. IN NO ACUTE DISTRESS. 01/03/19 16:30 Vital Signs Temperature 98.9 F 01/03/19 13:42 Pulse Rate 78 01/03/19 13:42 Respiratory Rate 18 01/03/19 13:42 Blood Pressure 92/59 L 01/03/19 13:42 O2 Sat by Pulse Oximetry (%) Laboratory Tests 01/02/19 01/02/19 01/02/19 09:45 09:45 09:45 WBC 8.2 RBC 4.38 Hgb 14.0 Hct 41.4 MCV 94.4 MCH 31.9 MCHC 33.8 RDW 13.8 Plt Count 264 MPV 9.4 Sodium 135 L Potassium 4.3 Chloride 103 Carbon Dioxide 27 Anion Gap 5 L BUN 14 Creatinine 0.8 Creat Clearance w eGFR 98.94 Random Glucose 92 Calcium 9.2 Total Bilirubin 0.8 AST 14 L ALT 22 Alkaline Phosphatase 88 Total Protein 7.6 Albumin 3.6 Urine Color Urine Appearance Urine pH Ur Specific [place] Urine Protein Urine Glucose (UA) Urine Ketones Urine Blood Urine Nitrite Urine Bilirubin Urine Urobilinogen Ur Leukocyte Esterase Urine WBC (Auto) Urine RBC (Auto) Urine Casts (Auto) U Epithel Cells (Auto) Urine Bacteria (Auto) RPR Titer Nonreactive 01/02/19 21:22 WBC RBC Hgb Hct MCV MCH MCHC RDW Plt Count MPV Sodium Potassium Chloride Carbon Dioxide Anion Gap BUN Creatinine Creat Clearance w eGFR Random Glucose Calcium Total Bilirubin AST ALT Alkaline Phosphatase Total Protein Albumin Urine Color Yellow Urine Appearance Clear Urine pH 5.0 Ur Specific [place] 1.027 Urine Protein Negative Urine Glucose (UA) Negative Urine Ketones Trace H Urine Blood Negative Urine Nitrite Negative Urine Bilirubin Negative Urine Urobilinogen 0.2 Ur Leukocyte Esterase Trace Urine WBC (Auto) 2 Urine RBC (Auto) 1 Urine Casts (Auto) 12 U Epithel Cells (Auto) 1.6 Urine Bacteria (Auto) 1.5 RPR Titer LABS NOTED. Assessment: 01/03/19 16:31 WITHDRAWAL SYMPTOMS. Plan: CONTINUE DETOX. INCREASE DAILY PO FLUID INTAKE. ENCOURAGE AMBULATION.
[2019-01-03] MEDS: THIAMINE HCL 100 MG TABLET (FP) PO SCH (22:26)
[2019-01-03] MEDS: RANITIDINE HCL 150 MG TABLET (FP) PO SCH (22:26)
[2019-01-03] MEDS: traZODone HCL 100 MG TABLET (FP) PO SCH (22:38)
[2019-01-04] MEDS: chlordiazePOXIDE HCL 25 MG CAPSULE PO SCH (06:56)
[2019-01-04] MEDS: amLODIPine BESYLATE 10 MG TABLET (FP) PO SCH (10:16)
[2019-01-04] MEDS: NICOTINE 21 MG/24 HOURS TOPICAL PATCH TD SCH (10:16)
[2019-01-04] MEDS: PRENATAL VITAMINS W/ FOLIC ACID TABLET (FP) PO SCH (10:16)
[2019-01-04] MEDS: RANITIDINE HCL 150 MG TABLET (FP) PO SCH ×2 (10:16→23:08)
[2019-01-04] MEDS: ASPIRIN 81 MG CHEWABLE TABLETS PO SCH (10:16)
[2019-01-04] MEDS: chlordiazePOXIDE HCL 10 MG CAPSULE PO SCH ×3 (10:17→23:09)
[2019-01-04] MEDS ORDERED: chlordiazePOXIDE HCL 10 MG CAPSULE PO PRN (11:00)
--- NOTE | 2019-01-04 11:22 | PN ---
[facility] CIWA - CIWA Score Nausea/Vomitin-Mild Nausea/No Vomiting Muscle Tremors: 1-None Visible, but [place] Anxiety: 1-Mildly Anxious Agitation: 1-Slight > Activity Paroxysmal Sweats: 1-Minimal Palms Moist Orientation: 1-Uncertain about Date Tacttile Disturbances: 0-None Auditory Disturbances: 0-None Visual Disturbances: 0-None Headache: 0-None Present CIWA-Ar Total Score: 6 BHS Progress Note (SOAP) Subjective: feeling ok today resting on bed low energy Objective: 01/04/19 11:21 Vital Signs Temperature 98.1 F 01/04/19 09:11 Pulse Rate 73 01/04/19 09:11 Respiratory Rate 18 01/04/19 09:11 Blood Pressure 121/75 01/04/19 09:11 O2 Sat by Pulse Oximetry (%) Laboratory Last Values WBC 8.2 K/mm3 (4.0-10.0) 01/02/19 09:45 RBC 4.38 M/mm3 (4.00-5.60) 01/02/19 09:45 Hgb 14.0 GM/dL (11.7-16.9) 01/02/19 09:45 Hct 41.4 % (35.4-49) 01/02/19 09:45 MCV 94.4 fl (80-96) 01/02/19 09:45 MCH 31.9 pg (25.7-33.7) 01/02/19 09:45 MCHC 33.8 g/dl (32.0-35.9) 01/02/19 09:45 RDW 13.8 % (11.9-15.9) 01/02/19 09:45 Plt Count 264 K/MM3 (134-434) 01/02/19 09:45 MPV 9.4 fl (7.5-11.1) 01/02/19 09:45 Sodium 135 mmol/L (136-145) L 01/02/19 09:45 Potassium 4.3 mmol/L (3.5-5.1) 01/02/19 09:45 Chloride 103 mmol/L (98-107) 01/02/19 09:45 Carbon Dioxide 27 mmol/L (21-32) 01/02/19 09:45 Anion Gap 5 MMOL/L (8-16) L 01/02/19 09:45 BUN 14 mg/dL (7-18) 01/02/19 09:45 Creatinine 0.8 mg/dL (0.55-1.3) 01/02/19 09:45 Creat Clearance w eGFR 98.94 (>60) 01/02/19 09:45 Random Glucose 92 mg/dL (74-106) 01/02/19 09:45 Calcium 9.2 mg/dL (8.5-10.1) 01/02/19 09:45 Total Bilirubin 0.8 mg/dL (0.2-1) 01/02/19 09:45 AST 14 U/L (15-37) L 01/02/19 09:45 ALT 22 U/L (13-61) 01/02/19 09:45 Alkaline Phosphatase 88 U/L (45-117) 01/02/19 09:45 Total Protein 7.6 g/dl (6.4-8.2) 01/02/19 09:45 Albumin 3.6 g/dl (3.4-5.0) 01/02/19 09:45 Urine Color Yellow 01/02/19 21:22 Urine Appearance Clear 01/02/19 21:22 Urine pH 5.0 (5.0-8.0) 01/02/19 21:22 Ur Specific [employer] 1.027 (1.010-1.035) 01/02/19 21:22 Urine Protein Negative (NEGATIVE) 01/02/19 21:22 Urine Glucose (UA) Negative (NEGATIVE) 01/02/19 21:22 Urine Ketones Trace (NEGATIVE) H 01/02/19 21:22 Urine Blood Negative (NEGATIVE) 01/02/19 21:22 Urine Nitrite Negative (NEGATIVE) 01/02/19 21:22 Urine Bilirubin Negative (NEGATIVE) 01/02/19 21:22 Urine Urobilinogen 0.2 mg/dL (0.2-1.0) 01/02/19 21:22 Ur Leukocyte Esterase Trace (NEGATIVE) 01/02/19 21:22 Urine WBC (Auto) 2 /hpf (0-5) 01/02/19 21:22 Urine RBC (Auto) 1 /hpf (0-4) 01/02/19 21:22 Urine Casts (Auto) 12 /lpf (0-8) 01/02/19 21:22 U Epithel Cells (Auto) 1.6 /HPF (0-5/HPF) 01/02/19 21:22 Urine Bacteria (Auto) 1.5 /hpf (NEGATIVE) 01/02/19 21:22 RPR Titer Nonreactive (NONREACTIVE) 01/02/19 09:45 lab noted Assessment: 01/04/19 11:21 alcohol withdrawal sx Plan: continue detox
[2019-01-04] MEDS: THIAMINE HCL 100 MG TABLET (FP) PO SCH (23:08)
[2019-01-04] MEDS: traZODone HCL 100 MG TABLET (FP) PO SCH (23:08)
[2019-01-05] MEDS: chlordiazePOXIDE HCL 10 MG CAPSULE PO SCH ×3 (05:42→22:38)
[2019-01-05] MEDS: ASPIRIN 81 MG CHEWABLE TABLETS PO SCH (10:25)
[2019-01-05] MEDS: RANITIDINE HCL 150 MG TABLET (FP) PO SCH ×2 (10:25→22:38)
[2019-01-05] MEDS: PRENATAL VITAMINS W/ FOLIC ACID TABLET (FP) PO SCH (10:25)
[2019-01-05] MEDS: amLODIPine BESYLATE 10 MG TABLET (FP) PO SCH (10:25)
[2019-01-05] MEDS: NICOTINE 21 MG/24 HOURS TOPICAL PATCH TD SCH (10:26)
--- NOTE | 2019-01-05 16:06 | PN ---
S CIWA - CIWA Score Nausea/Vomitin-No Nausea/No Vomiting Muscle Tremors: None Anxiety: 4-Mod. Anxious/Guarded Agitation: 0-Normal Activity Paroxysmal Sweats: No Perspiration Orientation: 0-Oriented Tacttile Disturbances: 0-None Auditory Disturbances: 0-None Visual Disturbances: 2-Mild Sensitivity Headache: 0-None Present CIWA-Ar Total Score: 6 BHS Progress Note (SOAP) Subjective: Anxious, Fatigue. Objective: PATIENT A & O X 3. IN NO ACUTE DISTRESS. 01/05/19 16:05 Vital Signs Temperature 98.8 F 01/05/19 09:19 Pulse Rate 89 01/05/19 09:19 Respiratory Rate 20 01/05/19 09:19 Blood Pressure 124/89 01/05/19 09:19 O2 Sat by Pulse Oximetry (%) Laboratory Tests 01/02/19 01/02/19 01/02/19 09:45 09:45 09:45 WBC 8.2 RBC 4.38 Hgb 14.0 Hct 41.4 MCV 94.4 MCH 31.9 MCHC 33.8 RDW 13.8 Plt Count 264 MPV 9.4 Sodium 135 L Potassium 4.3 Chloride 103 Carbon Dioxide 27 Anion Gap 5 L BUN 14 Creatinine 0.8 Creat Clearance w eGFR 98.94 Random Glucose 92 Calcium 9.2 Total Bilirubin 0.8 AST 14 L ALT 22 Alkaline Phosphatase 88 Total Protein 7.6 Albumin 3.6 Urine Color Urine Appearance Urine pH Ur Specific [place] Urine Protein Urine Glucose (UA) Urine Ketones Urine Blood Urine Nitrite Urine Bilirubin Urine Urobilinogen Ur Leukocyte Esterase Urine WBC (Auto) Urine RBC (Auto) Urine Casts (Auto) U Epithel Cells (Auto) Urine Bacteria (Auto) RPR Titer Nonreactive 01/02/19 21:22 WBC RBC Hgb Hct MCV MCH MCHC RDW Plt Count MPV Sodium Potassium Chloride Carbon Dioxide Anion Gap BUN Creatinine Creat Clearance w eGFR Random Glucose Calcium Total Bilirubin AST ALT Alkaline Phosphatase Total Protein Albumin Urine Color Yellow Urine Appearance Clear Urine pH 5.0 Ur Specific [place] 1.027 Urine Protein Negative Urine Glucose (UA) Negative Urine Ketones Trace H Urine Blood Negative Urine Nitrite Negative Urine Bilirubin Negative Urine Urobilinogen 0.2 Ur Leukocyte Esterase Trace Urine WBC (Auto) 2 Urine RBC (Auto) 1 Urine Casts (Auto) 12 U Epithel Cells (Auto) 1.6 Urine Bacteria (Auto) 1.5 RPR Titer LABS NOTED. Assessment: 01/05/19 16:05 WITHDRAWAL SYMPTOMS. Plan: CONTINUE DETOX. ENCOURAGE AMBULATION. PATIENT SCHEDULED FOR D/C TOMORROW .
[2019-01-05 17:14] VITALS: BP 105/76; PULSE 97; TEMP 99.3
[2019-01-05] MEDS: traZODone HCL 100 MG TABLET (FP) PO SCH (22:38)
[2019-01-05] MEDS: THIAMINE HCL 100 MG TABLET (FP) PO SCH (22:38)
[2019-01-06] MEDS: PRENATAL VITAMINS W/ FOLIC ACID TABLET (FP) PO SCH (10:15)
[2019-01-06] MEDS: ASPIRIN 81 MG CHEWABLE TABLETS PO SCH (10:15)
[2019-01-06] MEDS: amLODIPine BESYLATE 10 MG TABLET (FP) PO SCH (10:15)
[2019-01-06] MEDS: RANITIDINE HCL 150 MG TABLET (FP) PO SCH (10:15)
[2019-01-06] MEDS: chlordiazePOXIDE HCL 10 MG CAPSULE PO SCH (10:16)
[2019-01-06] MEDS: NICOTINE 21 MG/24 HOURS TOPICAL PATCH TD SCH (10:38)
--- NOTE | 2019-01-06 18:19 | DS ---
[facility] Detox Discharge Summary Admission Date: 01/02/19 Discharge Date: 01/06/19 - History Present History: Alcohol Dependence, Cannabis Dependence Additional Comments: PATIENT ELECTING TO RETURN HOME AT THIS TIME. PATIENT ADVISED TO CONSIDER LOCAL 12-STEP / NA / AA OUTPATIENT SUPPORT GROUP PROGRAM FOR AFTERCARE. PATIENT VERBALIZED UNDERSTANDING OF RECOMMENDATION. PATIENT DECLINED OFFER OF MEDICATION PRESCRIPTION FOR HOME MEDICATION AT TIME OF DISCHARGE FROM DETOX, NOTING THAT HE CURRENTLY HAS ADEQUATE SUPPLIES OF ALL PRESCRIBED HOME MEDICATIONS AT HOME. PATIENT WAS DISCHARGED FROM DETOX UNIT NI STABLE MEDICAL CONDITION. Pertinent Past History: History Of Syncope, Arthritis Of Left Knee, Asthma, HTN, Hep C, P.T.S.D., History Of Seizure, Nicotine Dependence, Depression, Insomnia. - Physical Exam Results Vital Signs: Vital Signs Temperature 99.3 F 01/05/19 17:13 Pulse Rate 97 H 01/05/19 17:13 Respiratory Rate 18 01/06/19 03:30 Blood Pressure 105/76 01/05/19 17:13 O2 Sat by Pulse Oximetry (%) Pertinent Admission Physical Exam Findings: WITHDRAWAL SYMPTOMS. Laboratory Tests 01/02/19 01/02/19 01/02/19 09:45 09:45 09:45 WBC 8.2 RBC 4.38 Hgb 14.0 Hct 41.4 MCV 94.4 MCH 31.9 MCHC 33.8 RDW 13.8 Plt Count 264 MPV 9.4 Sodium 135 L Potassium 4.3 Chloride 103 Carbon Dioxide 27 Anion Gap 5 L BUN 14 Creatinine 0.8 Creat Clearance w eGFR 98.94 Random Glucose 92 Calcium 9.2 Total Bilirubin 0.8 AST 14 L ALT 22 Alkaline Phosphatase 88 Total Protein 7.6 Albumin 3.6 Urine Color Urine Appearance Urine pH Ur Specific [place] Urine Protein Urine Glucose (UA) Urine Ketones Urine Blood Urine Nitrite Urine Bilirubin Urine Urobilinogen Ur Leukocyte Esterase Urine WBC (Auto) Urine RBC (Auto) Urine Casts (Auto) U Epithel Cells (Auto) Urine Bacteria (Auto) RPR Titer Nonreactive 01/02/19 21:22 WBC RBC Hgb Hct MCV MCH MCHC RDW Plt Count MPV Sodium Potassium Chloride Carbon Dioxide Anion Gap BUN Creatinine Creat Clearance w eGFR Random Glucose Calcium Total Bilirubin AST ALT Alkaline Phosphatase Total Protein Albumin Urine Color Yellow Urine Appearance Clear Urine pH 5.0 Ur Specific [place] 1.027 Urine Protein Negative Urine Glucose (UA) Negative Urine Ketones Trace H Urine Blood Negative Urine Nitrite Negative Urine Bilirubin Negative Urine Urobilinogen 0.2 Ur Leukocyte Esterase Trace Urine WBC (Auto) 2 Urine RBC (Auto) 1 Urine Casts (Auto) 12 U Epithel Cells (Auto) 1.6 Urine Bacteria (Auto) 1.5 RPR Titer LABS NOTED. - Treatment Hospital Course: Detox Protocol Followed, Detoxed Safely, Responded well, Discharged Condition Good Patient has Accepted a Rehab Referral to: PT DECLINED, ADVISED TO CONSIDER LOCAAL 12STEP/NA/AA OP SUPPORT GROUPS. - Medication Discharge Medications: Ambulatory Orders Albuterol Sulfate Inhaler - [Ventolin HFA Inhaler -] 2 inh PO Q4H PRN #1 inhaler 10/07/18 Amlodipine Besylate [Norvasc -] 10 mg PO DAILY #14 tablet 10/07/18 Aspirin 81 mg PO DAILY #14 tab.chew 10/07/18 traZODone HCL [Trazodone HCl] 100 mg PO HS #30 tablet 10/07/18 - Diagnosis (1) Alcohol dependence with uncomplicated withdrawal Status: Acute (2) Syncope Status: Acute Qualifiers: Syncope type: unspecified Qualified Code(s): R55 - Syncope and collapse (3) Arthritis of left knee Status: Chronic (4) Asthma Status: Chronic Qualifiers: Asthma severity: mild Asthma persistence: intermittent Asthma complication type: uncomplicated Qualified Code(s): J45.20 - Mild intermittent asthma, uncomplicated (5) Cannabis dependence Status: Chronic (6) Essential hypertension Status: Chronic (7) Hepatitis C Status: Chronic Qualifiers: Viral hepatitis chronicity: chronic Hepatic coma status: without hepatic coma Qualified Code(s): B18.2 - Chronic viral hepatitis C (8) PTSD (post-traumatic stress disorder) Status: Chronic (9) Seizure Status: Chronic (10) Insomnia Status: Chronic Qualifiers: Insomnia type: unspecified Qualified Code(s): G47.00 - Insomnia, unspecified (11) Substance induced mood disorder Status: Chronic - AMA Did Patient Leave Against Medical Advice: No
== END 2019-01-06 12:12 | disposition home or self-care (01) | DRG 775 ==
LOC: YASAS 08:21 → Y3N 09:51
PROVIDERS: ADMIT Surgery; ATTEND Surgery
PROC: HZ2ZZZZ Detoxification Services for Substance Abuse Treatment (ICD-10-PCS; principal; 2019-01-02)
DX: F10.230 Alcohol dependence with withdrawal, uncomplicated (principal); F12.20 Cannabis dependence, uncomplicated; F17.210 Nicotine dependence, cigarettes, uncomplicated; F43.10 Post-traumatic stress disorder, unspecified; F19.24 Other psychoactive substance dependence with psychoactive substance-induced mood disorder; I10 Essential (primary) hypertension; J45.20 Mild intermittent asthma, uncomplicated; B18.2 Chronic viral hepatitis C; G47.00 Insomnia, unspecified; M10.9 Gout, unspecified; M13.861 Other specified arthritis, right knee; Z91.013 Allergy to seafood; Z86.69 Personal history of other diseases of the nervous system and sense organs; Z59.0 Homelessness
CPT/HCPCS: 36415; 80053; 81003; 85027; 86593

== ENCOUNTER 2019-09-25 16:18 | Inpatient (IN) | payer OTHER ==
[2019-09-25 17:46] VITALS: BMI 29.9
--- NOTE | 2019-09-25 18:55 | HP ---
CIWA Score Nausea/Vomitin (vomitin g x 4) Muscle Tremors: 4-Moderate,w/Arms Extend Anxiety: 4-Mod. Anxious/Guarded Agitation: 4-Moderately Restless Paroxysmal Sweats: 2 Orientation: 0-Oriented Tacttile Disturbances: 0-None Auditory Disturbances: 0-None Visual Disturbances: 0-None Headache: 2-Mild CIWA-Ar Total Score: 18 - Admission Criteria OASAS Guidelines: Admission for Medically Managed Detox: Requires at least one of the followin. CIWA greater than 12 2. Seizures within the past 24 hours 3. Delirium tremens within the past 24 hours 4. Hallucinations within the past 24 hours 5. Acute intervention needed for co occurring medical disorder 6. Acute intervention needed for co occurring psychiatric disorder 7. Severe withdrawal that cannot be handled at a lower level of care (continued vomiting, continued diarrhea, abnormal vital signs) requiring intravenous medication and/or fluids 8. Admitting History and Physical - Smoking History Smoking history: Current every day smoker Have you smoked in the past 12 months: Yes Aproximately how many cigarettes per day: 20 - Alcohol/Substance Use Hx Alcohol Use: Yes Admission ROS [facility] - [facility] Chief Complaint: Alcohol withdrawal symptoms Allergies/Adverse Reactions: Allergies Allergy/AdvReac Type Severity Reaction Status Date / Time Fish Containing Products Allergy Severe Rash Verified 09/25/19 17:37 No Known Drug Allergies Allergy Verified 09/25/19 17:37 [email or web address] Allergy Severe Rash Uncoded 09/25/19 17:37 [email or web address] Allergy Uncoded 09/25/19 17:37 seafood Allergy Rash Uncoded 09/25/19 17:37 History of Present Illness: 59 years old male with a long history of alcohol dependence is seeking admission to detox. Patient reports medical history of hypertension, alcohol related seizures, asthma, Hep.C, gout and psych. history of PTSD and depression. He denies suicidal ideation at this time. Patient was last admitted to [facility] for the period 01/02/2019 - 01/06/2019. He reports that relapsed a day after discharge and has been admitted to other detox facilities. He reports that he was discharged from [facility] today with complaint of pancreatitis and was referred to detox. 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 Exam Limitations: No Limitations - Ebola screening Have you traveled outside of the country in the last 21 days: No Have you had contact with anyone from an Ebola affected area: No Do you have a fever: No - Review of Systems Constitutional: Chills, Malaise, Night Sweats, Changes in sleep EENT: reports: No Symptoms Reported Respiratory: reports: No Symptoms reported Cardiac: reports: No Symptoms Reported GI: reports: Nausea, Poor Appetite, Poor Fluid Intake, Vomiting, Abdominal cramping : reports: No Symptoms Reported Musculoskeletal: reports: No Symptoms Reported Integumentary: reports: Dryness, Flushing Neuro: reports: Headache, Tremors Endocrine: reports: No Symptoms Reported Hematology: reports: No Symptoms Reported Psychiatric: reports: Mood/Affect Appropiate, Orientated x3 Other Systems: Reviewed and Negative Patient History - Patient Medical History Hx Anemia: No Hx Asthma: Yes (Albuterol) Hx Chronic Obstructive Pulmonary Disease (COPD): No Hx Cancer: No Hx Cardiac Disorders: No Hx Congestive Heart Failure: No Hx Hypertension: Yes (Norvasc) Hx Pacemaker: No HX Cerebrovascular Accident: No Hx Seizures: Yes (Alcohol related- Not on medication) Hx Dementia: No Hx Diabetes: No Hx Gastrointestinal Disorders: No Hx Liver Disease: No Hx Genitourinary Disorders: No Hx Sexually Transmitted Disorders: No Hx Renal Disease (ESRD): No Hx Thyroid Disease: No Hx Human Immunodeficiency Virus (HIV): No (Negative 11/2018) Hx Hepatitis C: Yes (treated in 2017) Hx Depression: Yes Hx Suicide Attempt: No Hx Bipolar Disorder: No Hx Schizophrenia: No Other Medical History: Gout - Patient Surgical History Past Surgical History: Yes Hx Neurologic Surgery: No Hx Cataract Extraction: No Hx Cardiac Surgery: No Hx Lung Surgery: No Hx Abdominal Surgery: No Hx Appendectomy: No Hx Cholecystectomy: No Hx Genitourinary Surgery: No Hx Orthopedic Surgery: No Other Surgical History: SURGERY ON LEFT HAND IN 1976 Anesthesia Reaction: No - PPD History Previous Implant?: Yes Documented Results: Negative w/proof Implanted On Prior [facility] Admission?: Yes Date: 09/19/18 Results: 0 mm PPD to be Administered?: Yes - Reproductive History Patient is a Female of Child Bearing Age (11 -55 yrs old): No (male) - Smoking Cessation Smoking history: Current every day smoker Have you smoked in the past 12 months: Yes Aproximately how many cigarettes per day: 20 Cigars Per Day: 0 Hx Chewing Tobacco Use: No Initiated information on smoking cessation: Yes 'Breaking Loose' booklet given: 09/25/19 - Substance & Tx. History Hx Alcohol Use: Yes Hx Substance Use: Yes Substance Use Type: Alcohol, Marijuana Hx Substance Use Treatment: Yes ([facility]) - Substances abused Alcohol Substance route: Oral Frequency: Daily Amount used: 2 PINTS VODKA Age of first use: 12 Date of last use: 09/24/19 Marijuana/Hashish Substance route: Smoking Frequency: Daily Amount used: $20 Age of first use: 12 Date of last use: 09/24/19 Admission Physical Exam BHS - Vital Signs Vital Signs: Vital Signs - 24 hr 09/25/19 17:33 Temperature 98.6 F Pulse Rate 100 H Respiratory 20 Rate Blood Pressure 133/86 - Physical General Appearance: Yes: Moderate Distress, Tremorous, Sweating HEENTM: Yes: Within Normal Limits Respiratory: Yes: Lungs Clear, Normal Breath Sounds, No Respiratory Distress Neck: Yes: Within Normal Limits Breast: Yes: Breast Exam Deferred Cardiology: Yes: Tachycardia Abdominal: Yes: Protuberent Genitourinary: Yes: Within Normal Limits Back: Yes: Normal Inspection Musculoskeletal: Yes: Within Normal Limits Extremities: Yes: Tremors, Other (varicose veins) Neurological: Yes: Alert, Normal Mood/Affect Integumentary: Yes: Warm Lymphatic: Yes: Within Normal Limits - Diagnostic (1) Alcohol related seizure Current Visit: No Status: Chronic (2) Alcohol dependence with uncomplicated withdrawal Current Visit: Yes Status: Acute (3) Depression Current Visit: Yes Status: Chronic Qualifiers: Depression Type: unspecified Qualified Code(s): F32.9 - Major depressive disorder, single episode, unspecified (4) Gout Current Visit: No Status: Chronic Qualifiers: Gout site: knee Laterality: left (5) Asthma Current Visit: Yes Status: Chronic Qualifiers: Asthma severity: mild Asthma persistence: intermittent Asthma complication type: uncomplicated Qualified Code(s): J45.20 - Mild intermittent asthma, uncomplicated (6) Cannabis dependence Current Visit: Yes Status: Chronic (7) Essential hypertension Current Visit: Yes Status: Chronic (8) Hepatitis C Current Visit: No Status: Resolved Qualifiers: Viral hepatitis chronicity: unspecified Hepatic coma status: without hepatic coma Qualified Code(s): B19.20 - Unspecified viral hepatitis C without hepatic coma (9) Nicotine dependence Current Visit: No Status: Chronic Cleared for Admission BHS - Detox or Rehab [facility] Level of Care: Medically Managed Detox Regimen/Protocol: Librium Claeared for Rehab Admission: No Breathalyzer - Breathalyzer Breathalyzer: 0 Urine Drug Screen - Test Device Lot number: [id number] Expiration date: 04/14/21 - Control Is test valid?: Yes - Results Drug screen NEGATIVE: No Urine drug screen results: THC-Marijuana, BZO-Benzodiazepines Inpatient Rehab Admission - Rehab Decision to Admit Inpatient rehab admission?: No
[2019-09-25] MEDS ORDERED: MAGNESIUM HYDROX 2400MG/30ML ORAL SUSPENSION 30 ML CUP PO PRN (19:19)
[2019-09-25] MEDS ORDERED: MENTHOL/PHENOL 1 EACH UD MM PRN (19:19)
[2019-09-25] MEDS ORDERED: NICOTINE POLACRILEX 2 MG GUM BUC PRN (19:19)
[2019-09-25] MEDS ORDERED: METHOCARBAMOL 500 MG TABLET PO PRN (19:19)
[2019-09-25] MEDS ORDERED: BISMUTH SUBSALICYLATE 524 MG/30 ML UD PO PRN (19:19)
[2019-09-25] MEDS ORDERED: MAGNESIUM CITRATE 300 ML BOTTLE PO PRN (19:19)
[2019-09-25] MEDS ORDERED: MAG HYDROX/AL HYDROX/SIMETH 30 ML UNIT-DOSE CUP PO PRN (19:19)
[2019-09-25] MEDS ORDERED: MELATONIN 5 MG TABLETS PO PRN (19:19)
[2019-09-25] MEDS ORDERED: chlordiazePOXIDE HCL 25 MG CAPSULE PO PRN (19:19)
[2019-09-25] MEDS ORDERED: ACETAMINOPHEN 325 MG TABLET (FP) PO PRN ×2 (19:19)
[2019-09-25] MEDS: THIAMINE HCL 100 MG TABLET (FP) PO SCH (23:13)
[2019-09-25] MEDS: chlordiazePOXIDE HCL 25 MG CAPSULE PO SCH (23:29)
[2019-09-26] MEDS: chlordiazePOXIDE HCL 25 MG CAPSULE PO SCH ×4 (05:34→22:07)
--- NOTE | 2019-09-26 09:01 | EKG ---
Test Reason : Blood Pressure : / mmHG Vent. Rate : 089 BPM Atrial Rate : 089 BPM P-R Int : 144 ms QRS Dur : 074 ms QT Int : 358 ms P-R-T Axes : 068 069 074 degrees QTc Int : 435 ms SINUS RHYTHM WITH PREMATURE ATRIAL COMPLEXES OTHERWISE NORMAL ECG NO PREVIOUS ECGS AVAILABLE Confirmed by TRES BLANKENSHIP MD ([id number]) on 09/26/2019 9:01:27 AM Referred By: Confirmed By:TRES BLANKENSHIP MD
[2019-09-26 09:50] LABS: HEMATOCRIT 42.3 % (35.4-49); MCH 31.4 pg (25.7-33.7); MCHC 33.1 g/dl (32.0-35.9); MEAN CELL VOLUME 94.8 fl (80-96); PLATELET COUNT 212 K/MM3 (134-434); RBC 4.46 M/mm3 (4.00-5.60); RDW 14.4 % (11.9-15.9); WHITE BLOOD COUNT 8.1 K/mm3 (4.0-10.0)
[2019-09-26 10:22] LABS: ALBUMIN 3.2 g/dl (3.4-5.0); BILIRUBIN,TOTAL 1.8 mg/dL (0.2-1); CALCIUM 8.6 mg/dL (8.5-10.1); CREATININE 0.8 mg/dL (0.55-1.3); POTASSIUM 3.5 mmol/L (3.5-5.1); TOT PROT 6.3 g/dl (6.4-8.2)
[2019-09-26] MEDS: PRENATAL VITAMINS W/ FOLIC ACID TABLET (FP) PO SCH (10:44)
[2019-09-26] MEDS: ASPIRIN 81 MG CHEWABLE TABLETS PO SCH (10:45)
[2019-09-26] MEDS: amLODIPine BESYLATE 10 MG TABLET (FP) PO SCH (10:45)
[2019-09-26] MEDS: NICOTINE 14 MG/24 HOURS TOPICAL PATCH TD SCH (10:45)
--- NOTE | 2019-09-26 11:45 | CONSULT ---
[facility] Psychiatric Consult - Data Date of interview: 09/26/19 Admission source: [facility] Identifying data: Revisit to [facility] and admission to [address] [place] [address] for this 59 y/o male self-referred for detoxification treatment. [place]IL[place] issues : alcohol, cannabis, nicotine. Patient is , a father of two, homeless, unemployed and supported on SSI benefits. Substance Abuse History: Discussed with patient. Details in current [facility] report as follows : Smoking history: Current every day smoker. Have you smoked in the past 12 months: Yes. Aproximately how many cigarettes per day: 20. Cigars Per Day: 0. Hx Chewing Tobacco Use: No. Initiated information on smoking cessation : Yes. 'Breaking Loose' booklet given: 09/25/19. - Substance & Tx. History. Hx Alcohol Use: Yes. Hx Substance Use: Yes. Substance Use Type: Alcohol, Marijuana. Hx Substance Use Treatment: Yes ([facility]). - Substances abused. Alcohol. Substance route: Oral. Frequency: Daily. Amount used: 2 PINTS VODKA. Age of first use: 12. Date of last use: 09/24/19. Marijuana/Hashish. Substance route: Smoking. Frequency : Daily. Amount used: $20. Age of first use: 12. Date of last use: 09/24/19 Medical History: Medical profile is remarkable for hepatitis C, bronchial asthma , hypertension, arthritis (left knee), gout, alcohol-related seizures and a history of orthosurgery in 1976 (fracture of left hand). Psychiatric History: Patient endorses a history of multiple psychiatric hospitalizations ([facility]). Reportedly diagnosed with MDD + PTSD. Mr Leal explains that he has dropped out of psychiatric OPD care for several months. He used to be prescribed abilify 10 mg/day + trazodone 100 mg/hs (as per records). Not taken for months. Patient denies history of suicide attempts. Physical/Sexual Abuse/Trauma History: History of severe trauma : witnessed, at age 10, the suicide of an uncle via hanging (from a juliette tree in [facility]). Additional Comment: Urine drug screen results: THC-Marijuana, BZO- Benzodiazepines. Noted. Mental Status Exam - Mental Status Exam Alert and Oriented to: Time, Place, Person Cognitive Function: Good Patient Appearance: Unkempt, Disheveled Mood: Nervous, Withdrawn Affect: Mood Congruent, Constricted Patient Behavior: Fatigued, Appropriate, Cooperative (friendly) Speech Pattern: Clear, Appropriate Voice Loudness: Normal Thought Process: Intact, Goal Oriented Thought Disorder: Not Present Hallucinations: Denies Suicidal Ideation: Denies Homicidal Ideation: Denies Insight/Judgement: Poor Sleep: Poorly, Difficulty falling asleep Appetite: Good Muscle strength/Tone: Normal Gait/Station: Normal Psychiatric Findings - Problem List ([place] 1, 2,3) (1) Alcohol dependence with uncomplicated withdrawal Status: Chronic (2) Cannabis dependence Status: Chronic (3) Nicotine dependence Status: Chronic (4) Substance induced mood disorder Status: Chronic (5) History of posttraumatic stress disorder (PTSD) Status: Chronic (6) Insomnia Status: Chronic Qualifiers: Insomnia type: unspecified Qualified Code(s): G47.00 - Insomnia, unspecified (7) Non-compliance Status: Chronic - Initial Treatment Plan Initial Treatment Plan: Psychoeducation. Sleep hygiene. Detoxification. MAT services explained to the patient. Resumed : trazodone 50 mg po hs. Patient is made awar of side efects/benefits, including potential for priapism. Mr Leal is agreeable with this plan of care. Observation.
--- NOTE | 2019-09-26 13:21 | PN ---
[facility] CIWA - CIWA Score Nausea/Vomitin-No Nausea/No Vomiting Muscle Tremors: 4-Moderate,w/Arms Extend Anxiety: 4-Mod. Anxious/Guarded Agitation: 4-Moderately Restless Paroxysmal Sweats: 1-Minimal Palms Moist Orientation: 0-Oriented Tacttile Disturbances: 0-None Auditory Disturbances: 0-None Visual Disturbances: 0-None Headache: 0-None Present CIWA-Ar Total Score: 13 S Progress Note (SOAP) Subjective: Feels "so-so, sweats, shakes, diarrhea and bodyaches. Objective: 09/26/19 13:18 Vital Signs Temperature 98.4 F 09/26/19 13:08 Pulse Rate 109 H 09/26/19 13:08 Respiratory Rate 20 09/26/19 13:08 Blood Pressure 147/87 09/26/19 13:08 O2 Sat by Pulse Oximetry (%) Laboratory Tests 09/26/19 09/26/19 09/26/19 07:15 07:15 07:15 WBC 8.1 RBC 4.46 Hgb 14.0 Hct 42.3 MCV 94.8 MCH 31.4 MCHC 33.1 RDW 14.4 Plt Count 212 MPV 10.0 Sodium 140 Potassium 3.5 Chloride 107 Carbon Dioxide 28 Anion Gap 6 L BUN 11.0 Creatinine 0.8 Est GFR (CKD-EPI)AfAm 112.53 Est GFR (CKD-EPI)NonAf 97.10 Random Glucose 104 Calcium 8.6 Total Bilirubin 1.8 H AST 21 ALT 23 Alkaline Phosphatase 85 Total Protein 6.3 L Albumin 3.2 L RPR Titer Nonreactive Labs noted Aaox3 Ambulating No acute distress Assessment: 09/26/19 13:19 Withdrawals present Plan: Encouraged hydration PRN's ordered Continue detox
[2019-09-26] MEDS: IBUPROFEN 400 MG TABLET (FP) PO PRN (17:39)
[2019-09-26] MEDS: traZODone HCL 50 MG TABLET (FP) PO SCH (22:07)
[2019-09-26] MEDS: THIAMINE HCL 100 MG TABLET (FP) PO SCH (22:07)
[2019-09-26] MEDS: ALBUTEROL SO4 8 GM HFA INHALER IH PRN (22:10)
[2019-09-27] MEDS: chlordiazePOXIDE HCL 25 MG CAPSULE PO SCH ×4 (05:53→22:04)
[2019-09-27] MEDS: amLODIPine BESYLATE 10 MG TABLET (FP) PO SCH (10:10)
[2019-09-27] MEDS: PRENATAL VITAMINS W/ FOLIC ACID TABLET (FP) PO SCH (10:10)
[2019-09-27] MEDS: ASPIRIN 81 MG CHEWABLE TABLETS PO SCH (10:10)
[2019-09-27] MEDS: NICOTINE 14 MG/24 HOURS TOPICAL PATCH TD SCH (10:10)
[2019-09-27] MEDS: ALBUTEROL SO4 8 GM HFA INHALER IH PRN ×3 (10:12→22:06)
--- NOTE | 2019-09-27 13:28 | PN ---
[facility] CIWA - CIWA Score Nausea/Vomitin-Mild Nausea/No Vomiting Muscle Tremors: 2 Anxiety: 2 Agitation: 3 Paroxysmal Sweats: 2 Orientation: 0-Oriented Tacttile Disturbances: 0-None Auditory Disturbances: 0-None Visual Disturbances: 0-None Headache: 0-None Present CIWA-Ar Total Score: 10 S Progress Note (SOAP) Subjective: Agitated, anxious, interrupted sleep. Patient cursing at roommate and easily agitated (was banging things in his room this morning and requesting room change ) for no apparent reason. Objective: 09/27/19 13:26 Last Vital Signs Temp Pulse Resp BP Pulse Ox 98.1 F 83 18 137/93 09/27/19 09:27 09/27/19 09:27 09/27/19 09:27 09/27/19 09:27 Elevated b/p noted: has HTN, on med Laboratory Tests 09/26/19 09/26/19 09/26/19 07:15 07:15 07:15 WBC 8.1 RBC 4.46 Hgb 14.0 Hct 42.3 MCV 94.8 MCH 31.4 MCHC 33.1 RDW 14.4 Plt Count 212 MPV 10.0 Sodium 140 Potassium 3.5 Chloride 107 Carbon Dioxide 28 Anion Gap 6 L BUN 11.0 Creatinine 0.8 Est GFR (CKD-EPI)AfAm 112.53 Est GFR (CKD-EPI)NonAf 97.10 Random Glucose 104 Calcium 8.6 Total Bilirubin 1.8 H AST 21 ALT 23 Alkaline Phosphatase 85 Total Protein 6.3 L Albumin 3.2 L RPR Titer Nonreactive Labs reviewed: total bilirubin 1.8 (high) Assessment: 09/27/19 13:28 Withdrawal sxs Noted with HTN and elevated total bilirubin Plan: Continue detox Encouraged PO water intake HTN: continue norvasc, monitor b/p, low sodium diet Total bilirubin: repeat total bilirubin
[2019-09-27] MEDS: IBUPROFEN 400 MG TABLET (FP) PO PRN (17:08)
[2019-09-27] MEDS ORDERED: HYDROCORTISONE 1% TOPICAL CREAM 30 GM TUBE TP PRN (17:31)
[2019-09-27] MEDS: hydrOXYzine PAMOATE 25 MG CAPSULE (FP) PO PRN (20:44)
[2019-09-27] MEDS: THIAMINE HCL 100 MG TABLET (FP) PO SCH (22:04)
[2019-09-27] MEDS: traZODone HCL 50 MG TABLET (FP) PO SCH (22:04)
[2019-09-28] MEDS ORDERED: chlordiazePOXIDE HCL 10 MG CAPSULE PO PRN
[2019-09-28] MEDS: chlordiazePOXIDE HCL 10 MG CAPSULE PO SCH ×4 (07:18→22:05)
[2019-09-28] MEDS: ASPIRIN 81 MG CHEWABLE TABLETS PO SCH (10:37)
[2019-09-28] MEDS: NICOTINE 14 MG/24 HOURS TOPICAL PATCH TD SCH (10:37)
[2019-09-28] MEDS: PRENATAL VITAMINS W/ FOLIC ACID TABLET (FP) PO SCH (10:37)
[2019-09-28] MEDS: amLODIPine BESYLATE 10 MG TABLET (FP) PO SCH (10:37)
--- NOTE | 2019-09-28 10:56 | PN ---
S CIWA - CIWA Score Nausea/Vomitin-Mild Nausea/No Vomiting Muscle Tremors: 1-None Visible, but [place] Anxiety: 2 Agitation: 2 Paroxysmal Sweats: No Perspiration Orientation: 0-Oriented Tacttile Disturbances: 1-Very Mild Itch/Numbness Auditory Disturbances: 0-None Visual Disturbances: 0-None Headache: 1-Very Mild CIWA-Ar Total Score: 8 BHS Progress Note (SOAP) Subjective: alert,irritable,anxious,interrupted sleep,pain in right wrist,hisotory of old injury 1 moths ago,rash of chest and abdomen Objective: 09/28/19 10:53 Vital Signs Temperature 97.9 F 09/28/19 09:07 Pulse Rate 78 09/28/19 09:07 Respiratory Rate 16 09/28/19 09:07 Blood Pressure 125/74 09/28/19 09:07 O2 Sat by Pulse Oximetry (%) Assessment: 09/28/19 10:54 withdrawal symptom Plan: continue detox librium regimen,bengay right wrist,acndace badage right wrist,lidex cream to rash abdomen and chest bid
[2019-09-28] MEDS: METHYL SALICYLATE/MENTHOL OINT 30 GM TUBE TP SCH ×2 (12:30→22:07)
[2019-09-28] MEDS: FLUOCINONIDE 0.05% CREAM (15 GM TUBE) TP SCH ×2 (13:00→22:07)
[2019-09-28] MEDS: IBUPROFEN 400 MG TABLET (FP) PO PRN (17:31)
[2019-09-28] MEDS: hydrOXYzine PAMOATE 25 MG CAPSULE (FP) PO PRN (17:39)
[2019-09-28] MEDS: THIAMINE HCL 100 MG TABLET (FP) PO SCH (22:05)
[2019-09-28] MEDS: traZODone HCL 50 MG TABLET (FP) PO SCH (22:05)
[2019-09-28] MEDS: ALBUTEROL SO4 8 GM HFA INHALER IH PRN (22:09)
[2019-09-29] MEDS: chlordiazePOXIDE HCL 10 MG CAPSULE PO SCH ×2 (06:28→17:55)
[2019-09-29] MEDS: NICOTINE 14 MG/24 HOURS TOPICAL PATCH TD SCH (10:35)
[2019-09-29] MEDS: PRENATAL VITAMINS W/ FOLIC ACID TABLET (FP) PO SCH (10:35)
[2019-09-29] MEDS: METHYL SALICYLATE/MENTHOL OINT 30 GM TUBE TP SCH ×2 (10:35→22:16)
[2019-09-29] MEDS: ASPIRIN 81 MG CHEWABLE TABLETS PO SCH (10:35)
[2019-09-29] MEDS: FLUOCINONIDE 0.05% CREAM (15 GM TUBE) TP SCH ×2 (10:35→23:10)
[2019-09-29] MEDS: amLODIPine BESYLATE 10 MG TABLET (FP) PO SCH (10:36)
[2019-09-29] MEDS: ALBUTEROL SO4 8 GM HFA INHALER IH PRN ×2 (10:37→17:56)
--- NOTE | 2019-09-29 11:50 | PN ---
S CIWA - CIWA Score Nausea/Vomitin-No Nausea/No Vomiting Muscle Tremors: 1-None Visible, but [place] Anxiety: 1-Mildly Anxious Agitation: 1-Slight > Activity Paroxysmal Sweats: No Perspiration Orientation: 0-Oriented Tacttile Disturbances: 0-None Auditory Disturbances: 0-None Visual Disturbances: 0-None Headache: 1-Very Mild CIWA-Ar Total Score: 4 BHS Progress Note (SOAP) Subjective: alert,irritable,anxious,interrupted sleep,pain in right wrist is less Objective: 09/29/19 11:49 Vital Signs Temperature 97.9 F 09/29/19 05:00 Pulse Rate 78 09/29/19 05:00 Respiratory Rate 18 09/29/19 05:00 Blood Pressure 114/67 09/29/19 05:00 O2 Sat by Pulse Oximetry (%) Assessment: 09/29/19 11:49 withdrawal symptom Plan: continue detox librium regimen,discharge in am
[2019-09-29] MEDS: IBUPROFEN 400 MG TABLET (FP) PO PRN (18:26)
[2019-09-29] MEDS: THIAMINE HCL 100 MG TABLET (FP) PO SCH (22:14)
[2019-09-29] MEDS: traZODone HCL 50 MG TABLET (FP) PO SCH (22:14)
[2019-09-30] MEDS ORDERED: chlordiazePOXIDE HCL 10 MG CAPSULE PO ONE (05:00)
--- NOTE | 2019-09-30 08:45 | DS ---
[facility] Detox Discharge Summary Admission Date: 09/25/19 Discharge Date: 09/30/19 - History Present History: Alcohol Dependence, Cannabis Dependence - Physical Exam Results Vital Signs: Vital Signs Temperature 98.1 F 09/29/19 21:53 Pulse Rate 97 H 09/29/19 21:53 Respiratory Rate 18 09/30/19 03:30 Blood Pressure 118/55 L 09/29/19 21:53 O2 Sat by Pulse Oximetry (%) Pertinent Admission Physical Exam Findings: Vital Signs Temperature 98.1 F 09/29/19 21:53 Pulse Rate 97 H 09/29/19 21:53 Respiratory Rate 18 09/30/19 03:30 Blood Pressure 118/55 L 09/29/19 21:53 O2 Sat by Pulse Oximetry (%) Laboratory Tests 09/26/19 09/26/19 09/26/19 07:15 07:15 07:15 WBC 8.1 RBC 4.46 Hgb 14.0 Hct 42.3 MCV 94.8 MCH 31.4 MCHC 33.1 RDW 14.4 Plt Count 212 MPV 10.0 Sodium 140 Potassium 3.5 Chloride 107 Carbon Dioxide 28 Anion Gap 6 L BUN 11.0 Creatinine 0.8 Est GFR (CKD-EPI)AfAm 112.53 Est GFR (CKD-EPI)NonAf 97.10 Random Glucose 104 Calcium 8.6 Total Bilirubin 1.8 H AST 21 ALT 23 Alkaline Phosphatase 85 Total Protein 6.3 L Albumin 3.2 L RPR Titer Nonreactive 09/28/19 09:30 WBC RBC Hgb Hct MCV MCH MCHC RDW Plt Count MPV Sodium Potassium Chloride Carbon Dioxide Anion Gap BUN Creatinine Est GFR (CKD-EPI)AfAm Est GFR (CKD-EPI)NonAf Random Glucose Calcium Total Bilirubin 0.3 AST ALT Alkaline Phosphatase Total Protein Albumin RPR Titer aaox3 ambulating no acute distress - Treatment Hospital Course: Detox Protocol Followed, Detoxed Safely, Responded well, Discharged Condition Good, Rehab Referral Accepted Patient has Accepted a Rehab Referral to: [facility] - Medication Discharge Medications: Ambulatory Orders Albuterol Sulfate Inhaler - [Ventolin HFA Inhaler -] 2 inh PO Q4H PRN #1 inhaler 10/07/18 Amlodipine Besylate [Norvasc -] 10 mg PO DAILY #14 tablet 10/07/18 Aspirin 81 mg PO DAILY #14 tab.chew 10/07/18 traZODone HCL [Trazodone HCl] 100 mg PO HS #30 tablet 10/07/18 - Diagnosis (1) Alcohol dependence with uncomplicated withdrawal Current Visit: Yes Status: Chronic (2) Asthma Current Visit: Yes Status: Chronic Qualifiers: Asthma severity: mild Asthma persistence: intermittent Asthma complication type: uncomplicated Qualified Code(s): J45.20 - Mild intermittent asthma, uncomplicated (3) Cannabis dependence Current Visit: Yes Status: Chronic (4) Depression Current Visit: Yes Status: Chronic Qualifiers: Depression Type: unspecified Qualified Code(s): F32.9 - Major depressive disorder, single episode, unspecified (5) Essential hypertension Current Visit: Yes Status: Chronic (6) History of posttraumatic stress disorder (PTSD) Current Visit: Yes Status: Chronic (7) Insomnia Current Visit: Yes Status: Chronic Qualifiers: Insomnia type: unspecified Qualified Code(s): G47.00 - Insomnia, unspecified (8) Nicotine dependence Current Visit: Yes Status: Chronic (9) Non-compliance Current Visit: Yes Status: Chronic (10) Substance induced mood disorder Current Visit: Yes Status: Chronic (11) Alcohol-induced sleep disorder Current Visit: No Status: Acute (12) Substance-induced sleep disorder Current Visit: No Status: Acute (13) Syncope Current Visit: No Status: Acute Qualifiers: Syncope type: unspecified Qualified Code(s): R55 - Syncope and collapse (14) Alcohol related seizure Current Visit: No Status: Chronic (15) Alcohol-induced mood disorder Current Visit: No Status: Chronic (16) Arthritis of left knee Current Visit: No Status: Chronic (17) Cannabis dependence Current Visit: Yes Status: Chronic (18) Cocaine dependence Current Visit: Yes Status: Chronic Qualifiers: Substance use status: uncomplicated (19) Gout Current Visit: No Status: Chronic Qualifiers: Gout site: knee Laterality: left (20) Hepatitis C carrier Current Visit: No Status: Chronic (21) Insomnia Current Visit: No Status: Chronic Qualifiers: Insomnia type: unspecified Qualified Code(s): G47.00 - Insomnia, unspecified (22) PTSD (post-traumatic stress disorder) Current Visit: No Status: Chronic (23) Seizure Current Visit: No Status: Chronic (24) Hepatitis C Current Visit: No Status: Resolved Qualifiers: Viral hepatitis chronicity: unspecified Hepatic coma status: without hepatic coma Qualified Code(s): B19.20 - Unspecified viral hepatitis C without hepatic coma - AMA Did Patient Leave Against Medical Advice: No
[2019-09-30] MEDS: METHYL SALICYLATE/MENTHOL OINT 30 GM TUBE TP SCH (11:04)
[2019-09-30] MEDS: ASPIRIN 81 MG CHEWABLE TABLETS PO SCH (11:04)
[2019-09-30] MEDS: NICOTINE 14 MG/24 HOURS TOPICAL PATCH TD SCH (11:04)
[2019-09-30] MEDS: IBUPROFEN 400 MG TABLET (FP) PO PRN (11:05)
[2019-09-30] MEDS: FLUOCINONIDE 0.05% CREAM (15 GM TUBE) TP SCH (11:05)
[2019-09-30] MEDS: PRENATAL VITAMINS W/ FOLIC ACID TABLET (FP) PO SCH (11:05)
[2019-09-30 12:02] VITALS: BP 138/88; PULSE 91; TEMP 97.2
== END 2019-09-30 12:31 | disposition home or self-care (01) | DRG 774 ==
LOC: YASAS 16:18 → Y6N 19:45
PROVIDERS: ADMIT Allergy & Immunology; ATTEND Allergy & Immunology
PROC: HZ2ZZZZ Detoxification Services for Substance Abuse Treatment (ICD-10-PCS; principal; 2019-09-25)
DX: F10.230 Alcohol dependence with withdrawal, uncomplicated (principal); F14.20 Cocaine dependence, uncomplicated; F12.20 Cannabis dependence, uncomplicated; F17.210 Nicotine dependence, cigarettes, uncomplicated; F10.24 Alcohol dependence with alcohol-induced mood disorder; F19.24 Other psychoactive substance dependence with psychoactive substance-induced mood disorder; F10.282 Alcohol dependence with alcohol-induced sleep disorder; F19.282 Other psychoactive substance dependence with psychoactive substance-induced sleep disorder; F43.10 Post-traumatic stress disorder, unspecified; F32.9 Major depressive disorder, single episode, unspecified; I10 Essential (primary) hypertension; M10.9 Gout, unspecified; J45.20 Mild intermittent asthma, uncomplicated; Z86.69 Personal history of other diseases of the nervous system and sense organs; Z91.013 Allergy to seafood; Z88.8 Allergy status to other drugs, medicaments and biological substances; Z59.0 Homelessness
CPT/HCPCS: 36415; 80053; 82247; 85027; 86593; 93005; 93010

== ENCOUNTER 2019-09-30 12:38 | Inpatient (IN) | payer OTHER ==
--- NOTE | 2019-09-30 16:00 | PN ---
S Progress Note Note: Pt admitted here from detox was admitted there from 09/25-09/30 for Alcohol Cannabis Dependence. Chart reviewed. 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
[2019-09-30] MEDS ORDERED: MAG HYDROX/AL HYDROX/SIMETH 30 ML UNIT-DOSE CUP PO PRN (16:02)
[2019-09-30] MEDS ORDERED: guaiFENesin 200 MG/10 ML 10 ML UNIT-DOSE CUPS PO PRN (16:02)
[2019-09-30] MEDS ORDERED: MAGNESIUM HYDROX 2400MG/30ML ORAL SUSPENSION 30 ML CUP PO PRN (16:02)
[2019-09-30] MEDS ORDERED: MENTHOL/PHENOL 1 EACH UD MM PRN (16:02)
[2019-09-30] MEDS ORDERED: hydrOXYzine PAMOATE 25 MG CAPSULE (FP) PO PRN (16:02)
[2019-09-30] MEDS ORDERED: ACETAMINOPHEN 325 MG TABLET (FP) PO PRN (16:02)
[2019-09-30] MEDS ORDERED: MAGNESIUM CITRATE 300 ML BOTTLE PO PRN (16:02)
[2019-09-30] MEDS ORDERED: IBUPROFEN 400 MG TABLET (FP) PO PRN (16:02)
[2019-09-30] MEDS ORDERED: LOPERAMIDE HCL 2 MG CAPSULE PO PRN (16:02)
[2019-09-30] MEDS ORDERED: P-EPHED 60MG/TRIPROLIDI 2.5MG TABLET PO PRN (16:02)
[2019-09-30] MEDS ORDERED: METHOCARBAMOL 500 MG TABLET PO PRN (16:04)
--- NOTE | 2019-09-30 16:14 | HP ---
[facility] Rehab Assess/Revision - Admission History Admitted to Rehab from: Y [address] [place] [address] - Vital signs Vital Signs: Vital Signs Period Temp Pulse Resp BP Sys/Ramirez Pulse Ox Last 24 Hr 98.4 F 110 18 109/80 - Findings Detox History & Physical reviewed: Yes Concur with findings: Yes Inpatient Rehab Admission - Rehab Decision to Admit Inpatient rehab admission?: Yes - Initial Determination Are CD services needed?: Yes Free of communicable disease: Yes Not in need of hospitalization: Yes - Rehab Admission Criteria Previous failed treatment: Yes Poor recovery environment: Yes Comorbidities: Yes Lacks judgement: Yes Patient is meeting Inpatient Rehab admission criteria:: Yes (pt completed detox for alcohol and THC )
[2019-09-30] MEDS: MELATONIN 5 MG TABLETS PO PRN (21:20)
[2019-09-30] MEDS: traZODone HCL 100 MG TABLET (FP) PO SCH (21:20)
[2019-09-30] MEDS: THIAMINE HCL 100 MG TABLET (FP) PO SCH (21:20)
[2019-10-01] MEDS: amLODIPine BESYLATE 10 MG TABLET (FP) PO SCH (10:43)
[2019-10-01] MEDS: ASPIRIN 81 MG CHEWABLE TABLETS PO SCH (10:43)
[2019-10-01] MEDS: PRENATAL VITAMINS W/ FOLIC ACID TABLET (FP) PO SCH (10:43)
[2019-10-01] MEDS: MELATONIN 5 MG TABLETS PO PRN (21:16)
[2019-10-01] MEDS: THIAMINE HCL 100 MG TABLET (FP) PO SCH (21:16)
[2019-10-01] MEDS: traZODone HCL 100 MG TABLET (FP) PO SCH (21:16)
[2019-10-02] MEDS: PRENATAL VITAMINS W/ FOLIC ACID TABLET (FP) PO SCH (10:07)
[2019-10-02] MEDS: amLODIPine BESYLATE 10 MG TABLET (FP) PO SCH (10:07)
[2019-10-02] MEDS: ASPIRIN 81 MG CHEWABLE TABLETS PO SCH (10:07)
[2019-10-02] MEDS: ALBUTEROL SO4 8 GM HFA INHALER IH PRN (11:09)
[2019-10-02] MEDS: NICOTINE POLACRILEX 2 MG GUM BUC PRN ×2 (16:27→21:32)
[2019-10-02] MEDS: traZODone HCL 100 MG TABLET (FP) PO SCH (21:15)
[2019-10-02] MEDS: MELATONIN 5 MG TABLETS PO PRN (21:15)
[2019-10-02] MEDS: THIAMINE HCL 100 MG TABLET (FP) PO SCH (21:15)
[2019-10-03] MEDS: PRENATAL VITAMINS W/ FOLIC ACID TABLET (FP) PO SCH (10:37)
[2019-10-03] MEDS: ASPIRIN 81 MG CHEWABLE TABLETS PO SCH (10:37)
[2019-10-03] MEDS: amLODIPine BESYLATE 10 MG TABLET (FP) PO SCH (10:37)
[2019-10-03] MEDS: ALBUTEROL SO4 8 GM HFA INHALER IH PRN ×2 (10:38→21:03)
[2019-10-03] MEDS: NICOTINE POLACRILEX 2 MG GUM BUC PRN (11:03)
--- NOTE | 2019-10-03 19:19 | CONSULT ---
[facility] Psychiatric Consult - Data Date of interview: 10/03/19 Admission source: [facility] Identifying data: Transfer to [address] for rehabilitation treatment. Detoxification completed at [address] [place] [address]. DENILSON issues : alcohol, cannabis, nicotine. Patient is a 59 y/o male, , a father of two, homeless, unemployed and supported on SSI benefits. Substance Abuse History: Rediscussed with patient. Details in current [facility] report as follows : Smoking history: Current every day smoker. Have you smoked in the past 12 months: Yes. Aproximately how many cigarettes per day: 20. Cigars Per Day: 0. Hx Chewing Tobacco Use: No. Initiated information on smoking cessation: Yes. 'Breaking Loose' booklet given: 09/25/19. - Substance & Tx. History. Hx Alcohol Use: Yes. Hx Substance Use: Yes. Substance Use Type : Alcohol, Marijuana. Hx Substance Use Treatment: Yes ([facility]). - Substances abused. Alcohol. Substance route: Oral. Frequency: Daily. Amount used: 2 PINTS VODKA. Age of first use: 12. Date of last use: 09/24/19. Marijuana/Hashish. Substance route: Smoking. Frequency: Daily. Amount used: $20. Age of first use: 12. Date of last use: 09/24/19 Medical History: Medical profile is remarkable for hepatitis C, bronchial asthma , hypertension, arthritis (left knee), gout, alcohol-related seizures and a history of orthosurgery in 1976 (fracture of left hand). Psychiatric History: Patient endorses a history of multiple psychiatric hospitalizations ([facility] + [facility] + [facility]). Reportedly diagnosed with MDD + PTSD. Mr Leal explains that he has dropped out of psychiatric OPD care for several months. He used to be prescribed abilify 10 mg/day + trazodone 100 mg/hs (as per records). Not taken for months. Patient denies history of suicide attempts. Physical/Sexual Abuse/Trauma History: Patient denies. Additional Comment: Urine drug screen results: THC-Marijuana, BZO- Benzodiazepines. Noted on admission to [facility]. Mental Status Exam - Mental Status Exam Alert and Oriented to: Time, Place, Person Cognitive Function: Good Patient Appearance: Well Groomed Mood: Hopeful, Euthymic Affect: Appropriate, Normal Range Patient Behavior: Appropriate, Cooperative Speech Pattern: Clear, Appropriate Voice Loudness: Normal Thought Process: Intact, Goal Oriented Thought Disorder: Not Present Hallucinations: Denies Suicidal Ideation: Denies Homicidal Ideation: Denies Insight/Judgement: Fair Sleep: Fair (on trazodone) Appetite: Good Gait/Station: Normal Psychiatric Findings - Problem List ([place] 1, 2,3) (1) Alcohol use disorder Current Visit: Yes Status: Chronic (2) Cannabis dependence Current Visit: Yes Status: Chronic (3) Nicotine dependence Current Visit: Yes Status: Chronic (4) PTSD (post-traumatic stress disorder) Current Visit: Yes Status: Chronic Comment: By history. (5) Insomnia Status: Chronic Qualifiers: Insomnia type: unspecified Qualified Code(s): G47.00 - Insomnia, unspecified - Initial Treatment Plan Initial Treatment Plan: Psychoeducation. Support. Sleep hygiene. Resume trazodone 100 mg po hs at patient's request. Mr Leal is made aware of the risk of priapism. Gave his consent (verbal) to MD. Nguyen.
[2019-10-03] MEDS: traZODone HCL 100 MG TABLET (FP) PO SCH (21:02)
[2019-10-03] MEDS: THIAMINE HCL 100 MG TABLET (FP) PO SCH (21:02)
[2019-10-04] MEDS: ASPIRIN 81 MG CHEWABLE TABLETS PO SCH (11:00)
[2019-10-04] MEDS: PRENATAL VITAMINS W/ FOLIC ACID TABLET (FP) PO SCH (11:00)
[2019-10-04] MEDS: ALBUTEROL SO4 8 GM HFA INHALER IH PRN ×2 (11:00→21:34)
[2019-10-04] MEDS: amLODIPine BESYLATE 10 MG TABLET (FP) PO SCH (11:00)
[2019-10-04] MEDS: NICOTINE POLACRILEX 2 MG GUM BUC PRN (17:40)
[2019-10-04] MEDS: THIAMINE HCL 100 MG TABLET (FP) PO SCH (21:34)
[2019-10-04] MEDS: traZODone HCL 100 MG TABLET (FP) PO SCH (21:34)
[2019-10-05] MEDS: ASPIRIN 81 MG CHEWABLE TABLETS PO SCH (10:06)
[2019-10-05] MEDS: PRENATAL VITAMINS W/ FOLIC ACID TABLET (FP) PO SCH (10:06)
[2019-10-05] MEDS: amLODIPine BESYLATE 10 MG TABLET (FP) PO SCH (10:06)
--- NOTE | 2019-10-05 10:06 | PN ---
[facility] Progress Note Note: PATIENT DID NOT ATTEND GROUP THIS MORNING DESPITE ENCOURAGEMENT FROM STAFF. UNIT COUNSELOR AYANNA BRANDON AWARE OF PATIENT NOT ATTENDING GROUP. PATIENT STATES " I DO NOT FEEL WELL. I WILL GO TO NEXT GROUP." GROUP ATTENDANCE MONITORED. Vital Signs Temperature 98.2 F 10/05/19 06:47 Pulse Rate 91 H 10/05/19 09:30 Respiratory Rate 18 10/05/19 09:30 Blood Pressure 115/83 10/05/19 09:30 O2 Sat by Pulse Oximetry (%)
[2019-10-05] MEDS: ALBUTEROL SO4 8 GM HFA INHALER IH PRN (13:07)
[2019-10-05] MEDS: THIAMINE HCL 100 MG TABLET (FP) PO SCH (21:22)
[2019-10-05] MEDS: MELATONIN 5 MG TABLETS PO PRN (21:22)
[2019-10-05] MEDS: traZODone HCL 100 MG TABLET (FP) PO SCH (21:22)
[2019-10-06] MEDS: amLODIPine BESYLATE 10 MG TABLET (FP) PO SCH (10:21)
[2019-10-06] MEDS: ASPIRIN 81 MG CHEWABLE TABLETS PO SCH (10:21)
[2019-10-06] MEDS: NICOTINE POLACRILEX 2 MG GUM BUC PRN (10:21)
[2019-10-06] MEDS: PRENATAL VITAMINS W/ FOLIC ACID TABLET (FP) PO SCH (10:21)
[2019-10-06] MEDS ORDERED: IBUPROFEN 600 MG TABLET (FP) PO PRN (14:05)
[2019-10-06] MEDS: THIAMINE HCL 100 MG TABLET (FP) PO SCH (21:20)
[2019-10-06] MEDS: MELATONIN 5 MG TABLETS PO PRN (21:21)
[2019-10-06] MEDS: traZODone HCL 100 MG TABLET (FP) PO SCH (21:21)
[2019-10-07] MEDS: ASPIRIN 81 MG CHEWABLE TABLETS PO SCH (10:27)
[2019-10-07] MEDS: amLODIPine BESYLATE 10 MG TABLET (FP) PO SCH (10:27)
[2019-10-07] MEDS: PRENATAL VITAMINS W/ FOLIC ACID TABLET (FP) PO SCH (10:27)
[2019-10-07] MEDS: ALBUTEROL SO4 8 GM HFA INHALER IH PRN (10:28)
[2019-10-07] MEDS: METHYL SALICYLATE/MENTHOL OINT 30 GM TUBE TP SCH (10:29)
[2019-10-07] MEDS: traZODone HCL 100 MG TABLET (FP) PO SCH (21:10)
[2019-10-07] MEDS: THIAMINE HCL 100 MG TABLET (FP) PO SCH (21:10)
[2019-10-07] MEDS: MELATONIN 5 MG TABLETS PO PRN (21:10)
[2019-10-08] MEDS: PRENATAL VITAMINS W/ FOLIC ACID TABLET (FP) PO SCH (10:02)
[2019-10-08] MEDS: ASPIRIN 81 MG CHEWABLE TABLETS PO SCH (10:02)
[2019-10-08] MEDS: amLODIPine BESYLATE 10 MG TABLET (FP) PO SCH (10:02)
[2019-10-08] MEDS: METHYL SALICYLATE/MENTHOL OINT 30 GM TUBE TP SCH (10:03)
[2019-10-08] MEDS: ALBUTEROL SO4 8 GM HFA INHALER IH PRN ×2 (10:04→21:23)
[2019-10-08] MEDS: NICOTINE POLACRILEX 2 MG GUM BUC PRN (10:04)
[2019-10-08] MEDS: THIAMINE HCL 100 MG TABLET (FP) PO SCH (21:23)
[2019-10-08] MEDS: traZODone HCL 100 MG TABLET (FP) PO SCH (21:23)
[2019-10-09] MEDS: amLODIPine BESYLATE 10 MG TABLET (FP) PO SCH (09:49)
[2019-10-09] MEDS: ASPIRIN 81 MG CHEWABLE TABLETS PO SCH (09:49)
[2019-10-09] MEDS: PRENATAL VITAMINS W/ FOLIC ACID TABLET (FP) PO SCH (09:49)
[2019-10-09] MEDS: METHYL SALICYLATE/MENTHOL OINT 30 GM TUBE TP SCH (09:50)
[2019-10-09] MEDS: ALBUTEROL SO4 8 GM HFA INHALER IH PRN (09:50)
[2019-10-09] MEDS: NICOTINE POLACRILEX 2 MG GUM BUC PRN (10:26)
[2019-10-09] MEDS: MELATONIN 5 MG TABLETS PO PRN (21:24)
[2019-10-09] MEDS: THIAMINE HCL 100 MG TABLET (FP) PO SCH (21:24)
[2019-10-09] MEDS: traZODone HCL 100 MG TABLET (FP) PO SCH (21:24)
[2019-10-10] MEDS: METHYL SALICYLATE/MENTHOL OINT 30 GM TUBE TP SCH (10:05)
[2019-10-10] MEDS: ASPIRIN 81 MG CHEWABLE TABLETS PO SCH (10:05)
[2019-10-10] MEDS: PRENATAL VITAMINS W/ FOLIC ACID TABLET (FP) PO SCH (10:05)
[2019-10-10] MEDS: ALBUTEROL SO4 8 GM HFA INHALER IH PRN (10:05)
[2019-10-10] MEDS: amLODIPine BESYLATE 10 MG TABLET (FP) PO SCH (10:05)
[2019-10-10] MEDS: THIAMINE HCL 100 MG TABLET (FP) PO SCH (21:22)
[2019-10-10] MEDS: traZODone HCL 100 MG TABLET (FP) PO SCH (21:22)
[2019-10-10] MEDS: MELATONIN 5 MG TABLETS PO PRN (21:22)
[2019-10-11] MEDS: amLODIPine BESYLATE 10 MG TABLET (FP) PO SCH (10:05)
[2019-10-11] MEDS: ASPIRIN 81 MG CHEWABLE TABLETS PO SCH (10:05)
[2019-10-11] MEDS: PRENATAL VITAMINS W/ FOLIC ACID TABLET (FP) PO SCH (10:05)
[2019-10-11] MEDS: METHYL SALICYLATE/MENTHOL OINT 30 GM TUBE TP SCH (10:05)
[2019-10-11] MEDS: THIAMINE HCL 100 MG TABLET (FP) PO SCH (21:02)
[2019-10-11] MEDS: MELATONIN 5 MG TABLETS PO PRN (21:02)
[2019-10-11] MEDS: traZODone HCL 100 MG TABLET (FP) PO SCH (21:02)
[2019-10-12] MEDS: PRENATAL VITAMINS W/ FOLIC ACID TABLET (FP) PO SCH (09:57)
[2019-10-12] MEDS: ASPIRIN 81 MG CHEWABLE TABLETS PO SCH (09:57)
[2019-10-12] MEDS: amLODIPine BESYLATE 10 MG TABLET (FP) PO SCH (09:57)
[2019-10-12] MEDS: METHYL SALICYLATE/MENTHOL OINT 30 GM TUBE TP SCH (09:58)
[2019-10-12] MEDS: ALBUTEROL SO4 8 GM HFA INHALER IH PRN (09:58)
[2019-10-12] MEDS: traZODone HCL 100 MG TABLET (FP) PO SCH (21:20)
[2019-10-12] MEDS: THIAMINE HCL 100 MG TABLET (FP) PO SCH (21:20)
[2019-10-13] MEDS: ASPIRIN 81 MG CHEWABLE TABLETS PO SCH (10:01)
[2019-10-13] MEDS: METHYL SALICYLATE/MENTHOL OINT 30 GM TUBE TP SCH (10:01)
[2019-10-13] MEDS: amLODIPine BESYLATE 10 MG TABLET (FP) PO SCH (10:01)
[2019-10-13] MEDS: PRENATAL VITAMINS W/ FOLIC ACID TABLET (FP) PO SCH (10:01)
[2019-10-13] MEDS: NICOTINE POLACRILEX 2 MG GUM BUC PRN (10:02)
[2019-10-13] MEDS: ALBUTEROL SO4 8 GM HFA INHALER IH PRN (10:02)
[2019-10-13] MEDS: traZODone HCL 100 MG TABLET (FP) PO SCH (21:17)
[2019-10-13] MEDS: THIAMINE HCL 100 MG TABLET (FP) PO SCH (21:17)
[2019-10-13] MEDS: MELATONIN 5 MG TABLETS PO PRN (21:17)
--- NOTE | 2019-10-14 08:56 | PN ---
S Progress Note Note: Labs reviewed; Potassium within normal range. Laboratory Last Values Potassium 4.1 mmol/L (3.5-5.1) 10/13/19 08:05
[2019-10-14] MEDS: PRENATAL VITAMINS W/ FOLIC ACID TABLET (FP) PO SCH (10:09)
[2019-10-14] MEDS: ASPIRIN 81 MG CHEWABLE TABLETS PO SCH (10:10)
[2019-10-14] MEDS: amLODIPine BESYLATE 10 MG TABLET (FP) PO SCH (10:10)
[2019-10-14] MEDS: ALBUTEROL SO4 8 GM HFA INHALER IH PRN (10:10)
[2019-10-14] MEDS: METHYL SALICYLATE/MENTHOL OINT 30 GM TUBE TP SCH (10:10)
[2019-10-14] MEDS: traZODone HCL 100 MG TABLET (FP) PO SCH (21:23)
[2019-10-14] MEDS: MELATONIN 5 MG TABLETS PO PRN (21:23)
[2019-10-14] MEDS: THIAMINE HCL 100 MG TABLET (FP) PO SCH (21:23)
[2019-10-15] MEDS: PRENATAL VITAMINS W/ FOLIC ACID TABLET (FP) PO SCH (09:46)
[2019-10-15] MEDS: ASPIRIN 81 MG CHEWABLE TABLETS PO SCH (09:46)
[2019-10-15] MEDS: amLODIPine BESYLATE 10 MG TABLET (FP) PO SCH (09:46)
[2019-10-15] MEDS: METHYL SALICYLATE/MENTHOL OINT 30 GM TUBE TP SCH (09:46)
--- NOTE | 2019-10-15 13:03 | PN ---
[facility] Progress Note (SOAP) Subjective: Patient to be discharged tomorrow. 59 years old male with a long history of alcohol dependence is seeking admission to detox. Patient reports medical history of hypertension, alcohol related seizures, asthma, Hep.C, gout and psych. history of PTSD and depression. He denies suicidal ideation at this time. Patient was last admitted to [facility] for the period 01/02/2019 - 01/06/2019. He reports that relapsed a day after discharge and has been admitted to other detox facilities. He reports that he was discharged from [facility] with complaint of pancreatitis and was referred to detox. 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 HOSPITAL COURSE: He attended groups, had 1:1 with his counselor,was seen by the psychiatric service. He had no significant medical issues while in rehab. Objective: P/E General: no apparent distress HEENTM: normocephalic, PERRLA Neck: supple Lungs: clear Heart: s1 s2 ABD: +BS MSK: full weight bearing. 10/15/19 13:05 Assessment: Medically stable for discharge ETOH dependence 10/15/19 13:06 Plan: Patient will go to [facility] for aftercare. Medications transmitted to the pharmacy.
--- NOTE | 2019-10-15 14:05 | PN ---
S Progress Note Note: Patient is scheduled for discharge tomorrow. Script for 30 days supply of Trazadone 100 mg/hs will be electronically transmitted to [facility] at [address] [place], [place] [id number]
[2019-10-15] MEDS: THIAMINE HCL 100 MG TABLET (FP) PO SCH (21:25)
[2019-10-15] MEDS: traZODone HCL 100 MG TABLET (FP) PO SCH (21:25)
[2019-10-15] MEDS: MELATONIN 5 MG TABLETS PO PRN (21:26)
[2019-10-16 07:26] VITALS: BP 139/88; PULSE 78; TEMP 98.2
[2019-10-16] MEDS: PRENATAL VITAMINS W/ FOLIC ACID TABLET (FP) PO SCH (09:29)
[2019-10-16] MEDS: ASPIRIN 81 MG CHEWABLE TABLETS PO SCH (09:29)
[2019-10-16] MEDS: amLODIPine BESYLATE 10 MG TABLET (FP) PO SCH (09:29)
[2019-10-16] MEDS: METHYL SALICYLATE/MENTHOL OINT 30 GM TUBE TP SCH (09:30)
--- NOTE | 2019-10-16 10:11 | DS ---
[facility] Rehab Discharge Summary - [facility] Rehab Discharge Summary Admission Date: 09/30/19 Discharge Date: 10/16/19 - History Present History: Alcohol dependence - Discharge Physical Exam Vital Signs: Vital Signs Temperature 98.2 F 10/16/19 07:25 Pulse Rate 78 10/16/19 07:25 Respiratory Rate 18 10/16/19 07:25 Blood Pressure 139/88 10/16/19 07:25 O2 Sat by Pulse Oximetry (%) - Medication Discharge Medications: Ambulatory Orders Albuterol Sulfate Inhaler - [Ventolin HFA Inhaler -] 2 inh PO Q4H PRN #1 inhaler 10/15/19 Amlodipine Besylate [Norvasc -] 10 mg PO DAILY #14 tablet 10/15/19 Aspirin 81 mg PO DAILY #14 tab.chew 10/15/19 traZODone HCL [Trazodone HCl] 100 mg PO HS #30 tablet 10/15/19 - Medication-Assisted Treatment (MAT) Medication-Assisted Treatment (MAT): No MAT Follow-up Referral: Aftercare arranged for BAS[facility] program at [facility]. Patient left unit with tech,medically stable and denies SI/HI. - Discharge Instructions Diet, activity, other medical instructions: Diet: ELIGIO as tolerated Activity: ad francisco as tolerated Other medical instructions: follow up with pcp as recommended - Follow-up Referral Minutes to complete discharge: 30 - AMA Did Patient Leave Against Medical Advice: No
== END 2019-10-16 09:43 | disposition home or self-care (01) | DRG 772 ==
LOC: YASAS 12:38 → Y3W 12:39
PROVIDERS: ADMIT Neuromusculoskeletal Medicine & OMM; ATTEND Neuromusculoskeletal Medicine & OMM
PROC: HZ42ZZZ Group Counseling for Substance Abuse Treatment, Cognitive-Behavioral (ICD-10-PCS; principal; 2019-09-30)
DX: F10.20 Alcohol dependence, uncomplicated (principal); F12.20 Cannabis dependence, uncomplicated; F17.210 Nicotine dependence, cigarettes, uncomplicated; F43.10 Post-traumatic stress disorder, unspecified; F32.9 Major depressive disorder, single episode, unspecified; I10 Essential (primary) hypertension; J45.909 Unspecified asthma, uncomplicated; M10.9 Gout, unspecified; B18.2 Chronic viral hepatitis C; R56.9 Unspecified convulsions; G47.00 Insomnia, unspecified; Z91.013 Allergy to seafood; Z91.018 Allergy to other foods; Z59.0 Homelessness
CPT/HCPCS: 36415; 84132

== ENCOUNTER 2020-04-07 09:47 | Inpatient (IN) | payer OTHER ==
--- NOTE | 2020-04-07 09:57 | BHS.RME ---
Substance Use & Tx History - Substance Use History Alcohol Substance amount: 3-4 pints Frequency of use: Daily Substance route: Oral Date of Last Use: 04/07/20 (First use age 13y. Seizure 2019. Blackouts, last he can not recall when. 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) Marijuana/Hashish Substance amount: one gram Frequency of use: Less than 3 times per week Substance route: Smoking Date of Last Use: 04/06/20 (First use age 12y) Synthetic Cannabinoid Substance amount: $5 Frequency of use: Daily Substance route: Smoking Date of Last Use: 04/06/20 (First use age 56 y) - Last Treatment Date of last treatment: Sep 25 to Oct 16, 2019 [facility] Physical/Psych/Mental Status - Behavior General Behavior: Increased activity (restlessness, agitation) Eye Contact: Normal - Cooperativeness Cooperativeness: Cooperative - Thinking Thought Processes: Tight Thought content: Future oriented - Physical Health Problems Is patient presently having any pain?: Yes (left knee pain, chronic gout) Does patient presently have any injuries (include location): No Does patient currently have a fever: No CIWA Nausea/Vomitin-No Nausea/No Vomiting Muscle Tremors: 3 Anxiety: 2 Agitation: 1-Slight > Activity Paroxysmal Sweats: No Perspiration Orientation: 0-Oriented Tacttile Disturbances: 1-Very Mild Itch/Numbness Auditory Disturbances: 1-Very Mild Visual Disturbances: 2-Mild Sensitivity Headache: 3-Moderate CIWA-Ar Total Score: 13
--- NOTE | 2020-04-07 10:52 | HP ---
CIWA Score Nausea/Vomitin-No Nausea/No Vomiting Muscle Tremors: 3 Anxiety: 2 Agitation: 1-Slight > Activity Paroxysmal Sweats: No Perspiration Orientation: 0-Oriented Tacttile Disturbances: 1-Very Mild Itch/Numbness Auditory Disturbances: 1-Very Mild Visual Disturbances: 2-Mild Sensitivity Headache: 3-Moderate CIWA-Ar Total Score: 13 - Admission Criteria OASAS Guidelines: Admission for Medically Managed Detox: Requires at least one of the followin. CIWA greater than 12 2. Seizures within the past 24 hours 3. Delirium tremens within the past 24 hours 4. Hallucinations within the past 24 hours 5. Acute intervention needed for co occurring medical disorder 6. Acute intervention needed for co occurring psychiatric disorder 7. Severe withdrawal that cannot be handled at a lower level of care (continued vomiting, continued diarrhea, abnormal vital signs) requiring intravenous medication and/or fluids 8. Admitting History and Physical - Admission Chief Complaint: " I am here to go to detox and rehab." History of Present Illness: 59 year old male with history of alcohol dependence with withdrawal, cannabis use disorder, nicotine dependence. Alcohol: 3-4 pints vodka daily, started drinking at age 13 and last used today at 6AM. 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 Marijuana: 1 gram less than 3x/wk, started at age 12 and last used 04/05/20 Nicotine: 4-7 ciggs daily, started at age 12 K-2: 2 sticks $5 daily, started at age 56 and last used 04/05/20 PMH: HNT, Asthma, HCV, Gout Psrg" None Psych: PTSD, Depression He is homeless and has no legal issues. ZIGGY: 0.026, CIWA=13 Patient meets criteria for detox as he is at high risk for relapse, has had multiple blackouts and withdrawal seizure in the recent past. History Source: Patient Limitations to Obtaining History: No Limitations - Past Medical History Cardiovascular: Yes: HTN Pulmonary: Yes: Asthma Hepatobiliary: Yes: Hepatitis C Rheumatology: Yes: Gout - Past Surgical History Past Surgical History: Yes: None - Smoking History Smoking history: Current every day smoker Have you smoked in the past 12 months: Yes Aproximately how many cigarettes per day: 20 - Alcohol/Substance Use Hx Alcohol Use: Yes Number of Drinks Daily: 20 History of Substance Use: reports: Marijuana Date of Last Use: 04/05/20 - Social History Usual Living Arrangement: Yes: Alone Do you think of yourself as: Straight/Heterosexual ADL: Independent Occupation: unemployed History of Recent Travel: No Admission [facility] Allergies/Adverse Reactions: Allergies Allergy/AdvReac Type Severity Reaction Status Date / Time Fish Containing Products Allergy Severe Rash Verified 09/25/19 17:37 No Known Drug Allergies Allergy Verified 09/25/19 17:37 [email or web address] Allergy Severe Rash Uncoded 09/25/19 17:37 [email or web address] Allergy Uncoded 09/25/19 17:37 seafood Allergy Rash Uncoded 09/25/19 17:37 Exam Limitations: No Limitations - Ebola screening Have you traveled outside of the country in the last 21 days: No Have you had contact with anyone from an Ebola affected area: No Have you been sick,other than usual withdrawal symptoms: No Do you have a fever: No - Review of Systems Constitutional: No Symptoms Reported EENT: reports: No Symptoms Reported Respiratory: reports: No Symptoms reported Cardiac: reports: No Symptoms Reported GI: reports: No Symptoms Reported : reports: No Symptoms Reported Musculoskeletal: reports: No Symptoms Reported Integumentary: reports: No Symptoms Reported Neuro: reports: No Symptoms reported Endocrine: reports: No Symptoms Reported Hematology: reports: No Symptoms Reported Psychiatric: reports: Judgement Intact, Mood/Affect Appropiate, Orientated x3, Agitated, Anxious Other Systems: Reviewed and Negative Patient History - Patient Medical History Hx Anemia: No Hx Asthma: Yes Hx Chronic Obstructive Pulmonary Disease (COPD): No Hx Cancer: No Hx Cardiac Disorders: No Hx Congestive Heart Failure: No Hx Hypertension: Yes Hx Pacemaker: No HX Cerebrovascular Accident: No Hx Seizures: Yes (alcohol r/t seizure last episode 2018) Hx Dementia: No Hx Diabetes: No Hx Gastrointestinal Disorders: No Hx Liver Disease: No Hx Genitourinary Disorders: No Hx Sexually Transmitted Disorders: No Hx Renal Disease (ESRD): No Hx Thyroid Disease: No Hx Human Immunodeficiency Virus (HIV): No (Negative 11/2018) Hx Hepatitis C: Yes (treated in 2016) Hx Depression: Yes Hx Suicide Attempt: No Hx Bipolar Disorder: No Hx Schizophrenia: No - Patient Surgical History Past Surgical History: Yes Hx Neurologic Surgery: No Hx Cataract Extraction: No Hx Cardiac Surgery: No Hx Lung Surgery: No Hx Breast Surgery: No Hx Breast Biopsy: No Hx Abdominal Surgery: No Hx Appendectomy: No Hx Cholecystectomy: No Hx Genitourinary Surgery: No Hx Section: No Hx Orthopedic Surgery: No Other Surgical History: SURGERY ON LEFT HAND IN 1976 Anesthesia Reaction: No - PPD History Previous Implant?: Yes Documented Results: Negative w/proof Implanted On Prior [facility] Admission?: Yes Date: 09/19/18 Results: o mm PPD to be Administered?: No - Smoking Cessation Smoking history: Current every day smoker Have you smoked in the past 12 months: Yes Aproximately how many cigarettes per day: 20 Cigars Per Day: 0 Hx Chewing Tobacco Use: No Initiated information on smoking cessation: Yes 'Breaking Loose' booklet given: 04/07/20 - Substances abused Alcohol Substance route: Oral Frequency: Daily Amount used: 3-4 pints vodka Age of first use: 13 Date of last use: 04/07/20 Marijuana/Hashish Substance route: Smoking Frequency: 3-6 times per week Amount used: 1 gram Age of first use: 12 Date of last use: 04/05/20 K2/Spice Substance route: Smoking Amount used: $5 Age of first use: 56 Date of last use: 04/05/20 Admission Physical Exam S - Physical General Appearance: Yes: Mild Distress, Tremorous, Irritable, Sweating, Anxious HEENTM: Yes: EOMI, Hearing grossly Normal, Normal ENT Inspection, Normocephalic, Normal Voice, CAILIN, Pharynx Normal, Tm's normal Respiratory: Yes: Chest Non-Tender, Lungs Clear, Normal Breath Sounds, No Respiratory Distress, No Accessory Muscle Use Neck: Yes: No masses,lesions,Nodules, Supple, Trachea in good position Breast: Yes: Within Normal Limits Cardiology: Yes: Regular Rhythm, Regular Rate, S1, S2 Abdominal: Yes: Normal Bowel Sounds, Non Tender, Flat, Soft, Other (rash maculopapular all over body.) Genitourinary: Yes: Within Normal Limits Back: Yes: Normal Inspection Musculoskeletal: Yes: full range of Motion Extremities: Yes: Normal Capillary Refill, Normal Inspection, Normal Range of Motion, Non-Tender Neurological: Yes: 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 NML intact, Fully Oriented, Alert, Motor Strength 5/5, Normal Mood/Affect, Normal Response Integumentary: Yes: Normal Color, Dry, Warm, Rash Lymphatic: Yes: Within Normal Limits - Diagnostic (1) Alcohol dependence with uncomplicated withdrawal Current Visit: Yes Status: Chronic (2) Asthma Current Visit: Yes Status: Chronic Qualifiers: Asthma severity: mild Asthma persistence: intermittent Asthma complication type: uncomplicated Qualified Code(s): J45.20 - Mild intermittent asthma, uncomplicated (3) Cannabis dependence Current Visit: Yes Status: Chronic (4) Cocaine dependence Current Visit: Yes Status: Chronic Qualifiers: Substance use status: uncomplicated Qualified Code(s): F14.20 - Cocaine dependence, uncomplicated (5) Depression Current Visit: Yes Status: Chronic Qualifiers: Depression Type: unspecified Qualified Code(s): F32.9 - Major depressive disorder, single episode, unspecified (6) Essential hypertension Current Visit: Yes Status: Chronic (7) Nicotine dependence Current Visit: Yes Status: Chronic (8) Non-compliance Current Visit: Yes Status: Chronic (9) PTSD (post-traumatic stress disorder) Current Visit: Yes Status: Chronic Comment: By history. (10) Seizure Current Visit: No Status: Chronic Comment: alcohol related seizures, not emdicated for it (11) Substance induced mood disorder Current Visit: Yes Status: Chronic (12) Hepatitis C Current Visit: No Status: Resolved Qualifiers: Viral hepatitis chronicity: unspecified Hepatic coma status: without hepatic coma Qualified Code(s): B19.20 - Unspecified viral hepatitis C without hepatic coma Cleared for Admission S - Detox or Rehab [facility] Level of Care: Medically Managed Detox Regimen/Protocol: Librium Claeared for Rehab Admission: No Screened but not Admitted - Documentation of Visit Screened but not Admitted: No Breathalyzer - Breathalyzer Breathalyzer: 0.026 Urine Drug Screen - Test Device Lot number: [id number] Expiration date: 04/14/21 - Control Is test valid?: Yes - Results Drug screen NEGATIVE: No Urine drug screen results: THC-Marijuana, BZO-Benzodiazepines Inpatient Rehab Admission - Rehab Decision to Admit Inpatient rehab admission?: No
[2020-04-07] MEDS ORDERED: MENTHOL/PHENOL 1 EACH UD MM PRN (11:00)
[2020-04-07] MEDS ORDERED: chlordiazePOXIDE HCL 25 MG CAPSULE PO PRN (11:00)
[2020-04-07] MEDS ORDERED: NICOTINE POLACRILEX 2 MG GUM BUC PRN (11:00)
[2020-04-07] MEDS ORDERED: BISMUTH SUBSALICYLATE 262 MG/15 ML BTL PO PRN (11:00)
[2020-04-07] MEDS ORDERED: ONDANSETRON *ODT* 4 MG TABLET SL ONE (11:00)
[2020-04-07] MEDS ORDERED: IBUPROFEN 400 MG TABLET (FP) PO PRN (11:00)
[2020-04-07] MEDS ORDERED: MAGNESIUM HYDROX 2400MG/30ML ORAL SUSPENSION 30 ML CUP PO PRN (11:00)
[2020-04-07] MEDS ORDERED: MAG HYDROX/AL HYDROX/SIMETH 30 ML UNIT-DOSE CUP PO PRN (11:00)
[2020-04-07] MEDS ORDERED: ACETAMINOPHEN 325 MG TABLET (FP) PO PRN ×2 (11:00)
[2020-04-07] MEDS ORDERED: MAGNESIUM CITRATE 300 ML BOTTLE PO PRN (11:00)
[2020-04-07] MEDS ORDERED: METHOCARBAMOL 500 MG TABLET PO PRN (11:00)
[2020-04-07] MEDS ORDERED: ALBUTEROL SO4 HFA INHALER IH PRN (11:01)
[2020-04-07 11:25] VITALS: BMI 26.6
[2020-04-07] MEDS ORDERED: TUBERCULIN PPD 5 TU/0.1ML VIAL ID ONE (12:25)
[2020-04-07] MEDS: hydrOXYzine PAMOATE 25 MG CAPSULE (FP) PO SCH ×3 (13:14→22:42)
[2020-04-07] MEDS: PRENATAL VITAMINS W/ FOLIC ACID TABLET (FP) PO SCH (13:14)
[2020-04-07] MEDS: NICOTINE 7 MG/24 HOURS TOPICAL PATCH TD SCH (13:14)
[2020-04-07] MEDS: chlordiazePOXIDE HCL 25 MG CAPSULE PO SCH ×3 (13:14→22:42)
[2020-04-07 14:23] LABS: HEMATOCRIT 41.4 % (35.4-49); HEMOGLOBIN 13.8 GM/dL (11.7-16.9); MCH 31.8 pg (25.7-33.7); MCHC 33.4 g/dl (32.0-35.9); MEAN CELL VOLUME 95.4 fl (80-96); MEAN PLT VOLUME 10.3 fl (7.5-11.1); PLATELET COUNT 260 K/MM3 (134-434); RBC 4.34 M/mm3 (4.00-5.60); RDW 13.5 % (11.9-15.9); WHITE BLOOD COUNT 9.2 K/mm3 (4.0-10.0)
[2020-04-07 14:47] LABS: ALBUMIN 3.5 g/dl (3.4-5.0); BILIRUBIN,TOTAL 1.2 mg/dL (0.2-1); BLOOD UREA NITROGEN 11.3 mg/dL (7-18); CALCIUM 9.1 mg/dL (8.5-10.1); CREATININE 0.9 mg/dL (0.55-1.3)
[2020-04-07] MEDS: THIAMINE HCL 100 MG TABLET (FP) PO SCH (22:42)
[2020-04-07] MEDS: MELATONIN 5 MG TABLETS PO SCH (22:42)
[2020-04-08] MEDS: hydrOXYzine PAMOATE 25 MG CAPSULE (FP) PO SCH ×5 (05:03→22:24)
[2020-04-08] MEDS: chlordiazePOXIDE HCL 25 MG CAPSULE PO SCH ×4 (05:03→22:24)
[2020-04-08] MEDS: PRENATAL VITAMINS W/ FOLIC ACID TABLET (FP) PO SCH (10:11)
[2020-04-08] MEDS: amLODIPine BESYLATE 10 MG TABLET (FP) PO SCH (10:12)
[2020-04-08] MEDS: ASPIRIN 81 MG CHEWABLE TABLETS PO SCH (10:12)
[2020-04-08] MEDS: NICOTINE 7 MG/24 HOURS TOPICAL PATCH TD SCH (11:16)
--- NOTE | 2020-04-08 12:02 | CONSULT ---
[facility] Psychiatric Consult - Data Date of interview: 04/08/20 Admission source: [facility] Identifying data: Readmission to [address] [place] [address] for this 59 y/o male self- referred for detoxification treatment. DENILSON issues : alcohol, cannabis, nicotine. Patient is , a father of two, homeless, unemployed and supported on SSI benefits. Substance Abuse History: Discussed with the patient. DENILSON profile as follows : Smoking history: Current every day smoker. Have you smoked in the past 12 months: Yes. Aproximately how many cigarettes per day: 20. Cigars Per Day: 0. Hx Chewing Tobacco Use: No. Initiated information on smoking cessation: Yes. 'Breaking Loose' booklet given: 04/07/20. - Substances abused. Alcohol. Substance route: Oral. Frequency: Daily. Amount used: 3-4 pints vodka. Age of first use: 13. Date of last use: 04/07/20. Marijuana/Hashish. Substance route: Smoking. Frequency: 3-6 times per week. Amount used: 1 gram. Age of first use: 12. Date of last use: 04/05/20. K2/Spice. Substance route: Smoking. Amount used: $5. Age of first use: 56. Date of last use: 04/05/20. History of multiple [facility] treatment failures. Medical History: Medical profile is remarkable for hepatitis C, bronchial asthma, hypertension, arthritis (left knee), gout, alcohol-related seizures and a history of orthosurgery in 1976 (fracture of left hand). Psychiatric History: Patient endorses a history of multiple psychiatric hospitalizations ([facility] Reportedly diagnosed with MDD + PTSD. Mr Leal reports no psychiatric OPD follow-up care for several months. Patient states that he wants to resume the medication " for paranoia." Has no recall on names of medications prescribed in the past (records indicate past treatment with a combination of abilify 10 mg/day + trazodone 100 mg/hs). Patient denies history of suicide attempts. Physical/Sexual Abuse/Trauma History: Patient denies. Additional Comment: Urine drug screen results: THC-Marijuana, BZO- Benzodiazepines. Noted. Mental Status Exam - Mental Status Exam Alert and Oriented to: Time, Place, Person Cognitive Function: Good Patient Appearance: Unkempt, Disheveled Mood: Withdrawn Affect: Appropriate, Mood Congruent Patient Behavior: Fatigued, Appropriate (friendly on approach), Cooperative Speech Pattern: Clear, Appropriate Voice Loudness: Normal Thought Process: Intact, Goal Oriented Thought Disorder: Not Present Hallucinations: Denies Suicidal Ideation: Denies Homicidal Ideation: Denies Insight/Judgement: Poor Sleep: Poorly, Difficulty falling asleep Appetite: Good Gait/Station: Normal Psychiatric Findings - Problem List ([place] 1, 2,3) (1) Alcohol dependence with uncomplicated withdrawal Status: Acute (2) Cannabis dependence Status: Chronic (3) Nicotine dependence Status: Acute (4) Substance induced mood disorder Status: Suspected (5) History of posttraumatic stress disorder (PTSD) Status: Chronic (6) Insomnia Status: Chronic Qualifiers: Insomnia type: unspecified Qualified Code(s): G47.00 - Insomnia, unspe cified (7) Non-compliance Status: Chronic - Initial Treatment Plan Initial Treatment Plan: Psychoeducation. Sleep hygiene. Support. Detoxification. Resumed at the patient's request : trazodone 100 mg po hs + abilify 5 mg po daily. Side effects/benefits of both molecules are discussed with patient. Consent granted to (verbal). Observation.
[2020-04-08] MEDS: ALBUTEROL SO4 HFA INHALER IH PRN ×2 (13:26→22:59)
--- NOTE | 2020-04-08 13:38 | PN ---
[facility] CIWA - CIWA Score Nausea/Vomitin-Mild Nausea/No Vomiting Muscle Tremors: 3 Anxiety: 2 Agitation: 2 Paroxysmal Sweats: No Perspiration Orientation: 0-Oriented Tacttile Disturbances: 1-Very Mild Itch/Numbness Auditory Disturbances: 0-None Visual Disturbances: 0-None Headache: 2-Mild CIWA-Ar Total Score: 11 S Progress Note (SOAP) Subjective: alert,irritable,anxious,interrupted sleep,tremor,pain in the body Objective: 04/08/20 13:34 Vital Signs Temperature 97.3 F L 04/08/20 12:34 Pulse Rate 99 H 04/08/20 12:34 Respiratory Rate 18 04/08/20 12:34 Blood Pressure 132/81 04/08/20 12:34 O2 Sat by Pulse Oximetry (%) 97 04/08/20 12:34 04/08/20 13:34 Laboratory Last Values WBC 9.2 K/mm3 (4.0-10.0) 04/07/20 11:00 RBC 4.34 M/mm3 (4.00-5.60) 04/07/20 11:00 Hgb 13.8 GM/dL (11.7-16.9) 04/07/20 11:00 Hct 41.4 % (35.4-49) 04/07/20 11:00 MCV 95.4 fl (80-96) 04/07/20 11:00 MCH 31.8 pg (25.7-33.7) 04/07/20 11:00 MCHC 33.4 g/dl (32.0-35.9) 04/07/20 11:00 RDW 13.5 % (11.9-15.9) 04/07/20 11:00 Plt Count 260 K/MM3 (134-434) D 04/07/20 11:00 MPV 10.3 fl (7.5-11.1) 04/07/20 11:00 Sodium 138 mmol/L (136-145) 04/07/20 11:00 Potassium 4.0 mmol/L (3.5-5.1) 04/07/20 11:00 Chloride 103 mmol/L (98-107) 04/07/20 11:00 Carbon Dioxide 27 mmol/L (21-32) 04/07/20 11:00 Anion Gap 8 MMOL/L (8-16) 04/07/20 11:00 BUN 11.3 mg/dL (7-18) 04/07/20 11:00 Creatinine 0.9 mg/dL (0.55-1.3) 04/07/20 11:00 Est GFR (CKD-EPI)AfAm 107.22 04/07/20 11:00 Est GFR (CKD-EPI)NonAf 92.51 04/07/20 11:00 Random Glucose 85 mg/dL (74-106) 04/07/20 11:00 Calcium 9.1 mg/dL (8.5-10.1) 04/07/20 11:00 Total Bilirubin 1.2 mg/dL (0.2-1) H 04/07/20 11:00 AST 34 U/L (15-37) 04/07/20 11:00 ALT 48 U/L (13-61) 04/07/20 11:00 Alkaline Phosphatase 101 U/L (45-117) 04/07/20 11:00 Total Protein 7.0 g/dl (6.4-8.2) 04/07/20 11:00 Albumin 3.5 g/dl (3.4-5.0) 04/07/20 11:00 Syphilis Serology Non-reactive (NONREACTIVE) 04/07/20 11:00 HIV Ag/Ab Combo Qual Negative (NEGATIVE) 04/07/20 14:15 Assessment: 04/08/20 13:35 withdrawal symptom lung mild wheezing bilaterally Plan: treatment continue detox librium regimen,albuterol inhaler 2 puffsq4 hrs prn for wheezing,cane for ambulatory aid,chronic knee pain in right knee and leg due to previous injury
[2020-04-08] MEDS: MELATONIN 5 MG TABLETS PO SCH (22:24)
[2020-04-08] MEDS: THIAMINE HCL 100 MG TABLET (FP) PO SCH (22:24)
[2020-04-08] MEDS: traZODone HCL 100 MG TABLET (FP) PO SCH (22:24)
[2020-04-09] MEDS: hydrOXYzine PAMOATE 25 MG CAPSULE (FP) PO SCH ×5 (05:22→22:04)
[2020-04-09] MEDS: chlordiazePOXIDE HCL 25 MG CAPSULE PO SCH ×4 (05:22→22:05)
[2020-04-09] MEDS ORDERED: MASKS NR ONE (09:08)
[2020-04-09] MEDS: ALBUTEROL SO4 HFA INHALER IH PRN (09:08)
[2020-04-09] MEDS: HYDROCORTISONE 2.5% LOTION - 1 BOTTLE TP PRN (10:09)
[2020-04-09] MEDS: ARIPiprazole 5 MG TABLET PO SCH (10:10)
[2020-04-09] MEDS: amLODIPine BESYLATE 10 MG TABLET (FP) PO SCH (10:10)
[2020-04-09] MEDS: ASPIRIN 81 MG CHEWABLE TABLETS PO SCH (10:10)
[2020-04-09] MEDS: NICOTINE 7 MG/24 HOURS TOPICAL PATCH TD SCH (10:10)
[2020-04-09] MEDS: PRENATAL VITAMINS W/ FOLIC ACID TABLET (FP) PO SCH (10:10)
--- NOTE | 2020-04-09 14:32 | PN ---
S CIWA - CIWA Score Nausea/Vomitin-No Nausea/No Vomiting Muscle Tremors: 2 Anxiety: 4-Mod. Anxious/Guarded Agitation: 4-Moderately Restless Paroxysmal Sweats: No Perspiration Orientation: 0-Oriented Tacttile Disturbances: 0-None Auditory Disturbances: 0-None Visual Disturbances: 0-None Headache: 0-None Present CIWA-Ar Total Score: 10 BHS Progress Note (SOAP) Subjective: Anxious, Restless, Body Aches. Objective: Patient A & O X 3, Observed Ambulating on Detox Unit Unassisted. In No Acute Distress. 04/09/20 14:29 Vital Signs Temperature 97.3 F L 04/09/20 12:30 Pulse Rate 89 04/09/20 12:30 Respiratory Rate 18 04/09/20 12:30 Blood Pressure 139/92 04/09/20 12:30 O2 Sat by Pulse Oximetry (%) 100 04/09/20 12:30 Laboratory Tests 04/07/20 04/07/20 04/07/20 11:00 11:00 11:00 WBC 9.2 RBC 4.34 Hgb 13.8 Hct 41.4 MCV 95.4 MCH 31.8 MCHC 33.4 RDW 13.5 Plt Count 260 D MPV 10.3 Sodium 138 Potassium 4.0 Chloride 103 Carbon Dioxide 27 Anion Gap 8 BUN 11.3 Creatinine 0.9 Est GFR (CKD-EPI)AfAm 107.22 Est GFR (CKD-EPI)NonAf 92.51 Random Glucose 85 Calcium 9.1 Total Bilirubin 1.2 H AST 34 ALT 48 Alkaline Phosphatase 101 Total Protein 7.0 Albumin 3.5 Syphilis Serology Non-reactive COVID-19 (MARQUEZ) HIV Ag/Ab Combo Qual 04/07/20 04/07/20 14:15 14:15 WBC RBC Hgb Hct MCV MCH MCHC RDW Plt Count MPV Sodium Potassium Chloride Carbon Dioxide Anion Gap BUN Creatinine Est GFR (CKD-EPI)AfAm Est GFR (CKD-EPI)NonAf Random Glucose Calcium Total Bilirubin AST ALT Alkaline Phosphatase Total Protein Albumin Syphilis Serology COVID-19 (MARQUEZ) Not detected HIV Ag/Ab Combo Qual Negative Lab results noted. Assessment: 04/09/20 14:30 WITHDRAWAL SYMPTOMS. Plan: Continue Detox.
--- NOTE | 2020-04-09 14:55 | PN ---
[facility] Progress Note Note: Received report that Result of PPD planted at time of Admission to Detox is Positive (approx.12 mm). CXR ordered for 04/11/2020 (next day that Radiology Department open in [facility]. 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
[2020-04-09] MEDS: traZODone HCL 100 MG TABLET (FP) PO SCH (22:04)
[2020-04-09] MEDS: THIAMINE HCL 100 MG TABLET (FP) PO SCH (22:04)
[2020-04-09] MEDS: MELATONIN 5 MG TABLETS PO SCH (22:04)
[2020-04-09] MEDS: METHYL SALICYLATE/MENTHOL OINT 30 GM TUBE TP SCH (22:05)
[2020-04-10] MEDS ORDERED: chlordiazePOXIDE HCL 10 MG CAPSULE PO PRN
[2020-04-10] MEDS: hydrOXYzine PAMOATE 25 MG CAPSULE (FP) PO SCH ×5 (05:55→22:11)
[2020-04-10] MEDS: chlordiazePOXIDE HCL 10 MG CAPSULE PO SCH ×4 (05:55→22:11)
[2020-04-10] MEDS: ARIPiprazole 5 MG TABLET PO SCH (09:59)
[2020-04-10] MEDS: ASPIRIN 81 MG CHEWABLE TABLETS PO SCH (09:59)
[2020-04-10] MEDS: HYDROCORTISONE 2.5% LOTION - 1 BOTTLE TP PRN ×2 (09:59→22:11)
[2020-04-10] MEDS: METHYL SALICYLATE/MENTHOL OINT 30 GM TUBE TP SCH ×2 (09:59→22:10)
[2020-04-10] MEDS: amLODIPine BESYLATE 10 MG TABLET (FP) PO SCH (09:59)
[2020-04-10] MEDS: PRENATAL VITAMINS W/ FOLIC ACID TABLET (FP) PO SCH (10:01)
[2020-04-10] MEDS: NICOTINE 7 MG/24 HOURS TOPICAL PATCH TD SCH (10:01)
--- NOTE | 2020-04-10 11:47 | PN ---
S CIWA - CIWA Score Nausea/Vomitin-No Nausea/No Vomiting Muscle Tremors: 2 Anxiety: 2 Agitation: 1-Slight > Activity Paroxysmal Sweats: 1-Minimal Palms Moist Orientation: 0-Oriented Tacttile Disturbances: 0-None Auditory Disturbances: 0-None Visual Disturbances: 2-Mild Sensitivity Headache: 0-None Present CIWA-Ar Total Score: 8 BHS Progress Note (SOAP) Subjective: 59 years old male admitted on 04/07/20 for alcohol withdrawal sx management treating with librium detox regiment ambulating with cane slow steady reports chronic gout of the left knee requests candace bandage for support candace bandage order Objective: 04/10/20 11:44 Vital Signs - 24 hr 04/09/20 04/09/20 04/09/20 12:30 16:39 20:28 Temperature 97.3 F L 97.1 F L 97.5 F L Pulse Rate 89 98 H 94 H Respiratory 18 18 18 Rate Blood Pressure 139/92 135/92 145/91 O2 Sat by Pulse 100 100 Oximetry (%) 04/10/20 04/10/20 06:52 08:49 Temperature 97.3 F L 97.3 F L Pulse Rate 77 97 H Respiratory 18 18 Rate Blood Pressure 127/73 139/60 O2 Sat by Pulse 97 97 Oximetry (%) Laboratory Tests 04/07/20 04/07/20 04/07/20 11:00 11:00 11:00 WBC 9.2 RBC 4.34 Hgb 13.8 Hct 41.4 MCV 95.4 MCH 31.8 MCHC 33.4 RDW 13.5 Plt Count 260 D MPV 10.3 Sodium 138 Potassium 4.0 Chloride 103 Carbon Dioxide 27 Anion Gap 8 BUN 11.3 Creatinine 0.9 Est GFR (CKD-EPI)AfAm 107.22 Est GFR (CKD-EPI)NonAf 92.51 Random Glucose 85 Calcium 9.1 Total Bilirubin 1.2 H AST 34 ALT 48 Alkaline Phosphatase 101 Total Protein 7.0 Albumin 3.5 Syphilis Serology Non-reactive COVID-19 (MARQUEZ) HIV Ag/Ab Combo Qual 04/07/20 04/07/20 14:15 14:15 WBC RBC Hgb Hct MCV MCH MCHC RDW Plt Count MPV Sodium Potassium Chloride Carbon Dioxide Anion Gap BUN Creatinine Est GFR (CKD-EPI)AfAm Est GFR (CKD-EPI)NonAf Random Glucose Calcium Total Bilirubin AST ALT Alkaline Phosphatase Total Protein Albumin Syphilis Serology COVID-19 (MARQUEZ) Not detected HIV Ag/Ab Combo Qual Negative 04/10/20 11:45 bp responding to amlodipine well continue amlodipine 10 mg po daily Assessment: 04/10/20 11:46 alcohol withdrawal Plan: librium regiment
[2020-04-10] MEDS: MELATONIN 5 MG TABLETS PO SCH (22:11)
[2020-04-10] MEDS: traZODone HCL 100 MG TABLET (FP) PO SCH (22:11)
[2020-04-10] MEDS: THIAMINE HCL 100 MG TABLET (FP) PO SCH (22:11)
[2020-04-11] MEDS: chlordiazePOXIDE HCL 10 MG CAPSULE PO SCH ×2 (05:36→17:26)
[2020-04-11] MEDS: hydrOXYzine PAMOATE 25 MG CAPSULE (FP) PO SCH ×5 (05:36→22:12)
--- NOTE | 2020-04-11 09:03 | PN ---
S CIWA - CIWA Score Nausea/Vomitin-No Nausea/No Vomiting Muscle Tremors: 1-None Visible, but [place] Anxiety: 1-Mildly Anxious Agitation: 1-Slight > Activity Paroxysmal Sweats: No Perspiration Orientation: 0-Oriented Tacttile Disturbances: 1-Very Mild Itch/Numbness Auditory Disturbances: 0-None Visual Disturbances: 0-None Headache: 2-Mild CIWA-Ar Total Score: 6 BHS Progress Note (SOAP) Subjective: alert,irritable,anxious,interrupted sleep,rash bot feet,ambulation with cane Objective: 04/11/20 08:59 Vital Signs Temperature 98.9 F 04/11/20 05:27 Pulse Rate 88 04/11/20 05:27 Respiratory Rate 18 04/11/20 05:27 Blood Pressure 131/74 04/11/20 05:27 O2 Sat by Pulse Oximetry (%) 100 04/11/20 05:27 Assessment: 04/11/20 08:59 withdrawal symptom Plan: continue detox iibrium regimen,hydrocotisone cream rash both feet,discharge in am
[2020-04-11] MEDS: NICOTINE 7 MG/24 HOURS TOPICAL PATCH TD SCH (09:58)
[2020-04-11] MEDS: ARIPiprazole 5 MG TABLET PO SCH (09:58)
[2020-04-11] MEDS: amLODIPine BESYLATE 10 MG TABLET (FP) PO SCH (09:58)
[2020-04-11] MEDS: ASPIRIN 81 MG CHEWABLE TABLETS PO SCH (09:58)
[2020-04-11] MEDS: METHYL SALICYLATE/MENTHOL OINT 30 GM TUBE TP SCH ×2 (09:59→22:16)
[2020-04-11] MEDS: PRENATAL VITAMINS W/ FOLIC ACID TABLET (FP) PO SCH (09:59)
[2020-04-11] MEDS: HYDROCORTISONE 0.5% TOPICAL CREAM 30 GM TUBE TP SCH ×2 (10:15→22:15)
[2020-04-11] MEDS: ALBUTEROL SO4 HFA INHALER IH PRN (17:29)
[2020-04-11] MEDS: traZODone HCL 100 MG TABLET (FP) PO SCH (22:12)
[2020-04-11] MEDS: MELATONIN 5 MG TABLETS PO SCH (22:13)
[2020-04-11] MEDS: THIAMINE HCL 100 MG TABLET (FP) PO SCH (22:13)
[2020-04-12] MEDS ORDERED: chlordiazePOXIDE HCL 10 MG CAPSULE PO ONE (05:00)
[2020-04-12] MEDS: hydrOXYzine PAMOATE 25 MG CAPSULE (FP) PO SCH ×2 (05:44→10:12)
--- NOTE | 2020-04-12 08:37 | DS ---
[facility] Detox Discharge Summary Admission Date: 04/07/20 Discharge Date: 04/12/20 - History Present History: Alcohol Dependence Additional Comments: 59 years old male admitted on 04/07/20 for alcohol withdrawal sx management treating with librium detox regiment seen by psychiatrist delfina dunaway mr zhu has completed librium regiment and is tolerated well alert oriented x 3 speech clearly coherently ambulating with cane slow and steady respiratory clear lung sounds bilaterally on auscultation abdomen soft no rebound tenderness skin warm and dry Pertinent Past History: time for discharge 45 minutes transferred order set from detox to rehab - Physical Exam Results Vital Signs: Vital Signs Temperature 97.3 F L 04/12/20 06:39 Pulse Rate 82 04/12/20 06:39 Respiratory Rate 18 04/12/20 06:39 Blood Pressure 126/77 04/12/20 06:39 O2 Sat by Pulse Oximetry (%) 99 04/12/20 06:39 Pertinent Admission Physical Exam Findings: alcohol withdrawal Laboratory Tests 04/07/20 04/07/20 04/07/20 11:00 11:00 11:00 WBC 9.2 RBC 4.34 Hgb 13.8 Hct 41.4 MCV 95.4 MCH 31.8 MCHC 33.4 RDW 13.5 Plt Count 260 D MPV 10.3 Sodium 138 Potassium 4.0 Chloride 103 Carbon Dioxide 27 Anion Gap 8 BUN 11.3 Creatinine 0.9 Est GFR (CKD-EPI)AfAm 107.22 Est GFR (CKD-EPI)NonAf 92.51 Random Glucose 85 Calcium 9.1 Total Bilirubin 1.2 H AST 34 ALT 48 Alkaline Phosphatase 101 Total Protein 7.0 Albumin 3.5 Syphilis Serology Non-reactive COVID-19 ([facility]QUEZ) HIV Ag/Ab Combo Qual 04/07/20 04/07/20 14:15 14:15 WBC RBC Hgb Hct MCV MCH MCHC RDW Plt Count MPV Sodium Potassium Chloride Carbon Dioxide Anion Gap BUN Creatinine Est GFR (CKD-EPI)AfAm Est GFR (CKD-EPI)NonAf Random Glucose Calcium Total Bilirubin AST ALT Alkaline Phosphatase Total Protein Albumin Syphilis Serology COVID-19 ([facility]QUEZ) Not detected HIV Ag/Ab Combo Qual Negative lab noted - Treatment Hospital Course: Detox Protocol Followed, Detoxed Safely, Responded well, Discharged Condition Good, Rehab Referral Accepted Patient has Accepted a Rehab Referral to: [facility] - Medication Discharge Medications: Ambulatory Orders Albuterol Sulfate Inhaler - [Ventolin HFA Inhaler -] 2 inh PO Q4H PRN #1 inhaler 10/15/19 Amlodipine Besylate [Norvasc -] 10 mg PO DAILY #14 tablet 10/15/19 Aspirin 81 mg PO DAILY #14 tab.chew 10/15/19 traZODone HCL [Trazodone HCl] 100 mg PO HS #30 tablet 10/15/19 Icy Hot Advanced Relief Cream PRN 04/07/20 - Diagnosis (1) Alcohol dependence with uncomplicated withdrawal Current Visit: Yes Status: Acute (2) Asthma Current Visit: Yes Status: Chronic Qualifiers: Asthma severity: mild Asthma persistence: intermittent Asthma complication type: uncomplicated Qualified Code(s): J45.20 - Mild intermittent asthma, uncomplicated (3) Essential hypertension Current Visit: Yes Status: Chronic (4) Nicotine dependence Current Visit: Yes Status: Acute (5) Substance induced mood disorder Current Visit: Yes Status: Suspected (6) Gout Current Visit: Yes Status: Chronic Qualifiers: Gout site: knee Gout etiology: unspecified cause Chronicity: chronic Laterality: left Qualified Code(s): M1A.0620 - Idiopathic chronic gout, left knee, without tophus (tophi) (7) Hepatitis C carrier Current Visit: Yes Status: Chronic (8) Hepatitis C Current Visit: No Status: Resolved Qualifiers: Viral hepatitis chronicity: unspecified Hepatic coma status: without hepatic coma Qualified Code(s): B19.20 - Unspecified viral hepatitis C without hepatic coma - AMA Did Patient Leave Against Medical Advice: No CIWA Score - CIWA Score Nausea/Vomitin-No Nausea/No Vomiting Muscle Tremors: 1-None Visible, but [place] Anxiety: 1-Mildly Anxious Agitation: 0-Normal Activity Paroxysmal Sweats: No Perspiration Orientation: 0-Oriented Tacttile Disturbances: 0-None Auditory Disturbances: 0-None Visual Disturbances: 0-None Headache: 1-Very Mild CIWA-Ar Total Score: 3
[2020-04-12 08:51] VITALS: BP 129/83; PULSE 104; TEMP 97.1
[2020-04-12] MEDS: amLODIPine BESYLATE 10 MG TABLET (FP) PO SCH (10:12)
[2020-04-12] MEDS: ARIPiprazole 5 MG TABLET PO SCH (10:12)
[2020-04-12] MEDS: ASPIRIN 81 MG CHEWABLE TABLETS PO SCH (10:12)
[2020-04-12] MEDS: METHYL SALICYLATE/MENTHOL OINT 30 GM TUBE TP SCH (10:12)
[2020-04-12] MEDS: NICOTINE 7 MG/24 HOURS TOPICAL PATCH TD SCH (10:12)
[2020-04-12] MEDS: HYDROCORTISONE 0.5% TOPICAL CREAM 30 GM TUBE TP SCH (10:13)
[2020-04-12] MEDS: ALBUTEROL SO4 HFA INHALER IH PRN (10:13)
[2020-04-12] MEDS: PRENATAL VITAMINS W/ FOLIC ACID TABLET (FP) PO SCH (10:13)
== END 2020-04-12 12:25 | disposition other institution (70) | DRG 774 ==
LOC: YASAS 09:47 → Y3N 11:14
PROVIDERS: ADMIT Allergy & Immunology; ATTEND Allergy & Immunology
PROC: HZ2ZZZZ Detoxification Services for Substance Abuse Treatment (ICD-10-PCS; principal; 2020-04-07)
DX: F10.230 Alcohol dependence with withdrawal, uncomplicated (principal); F14.20 Cocaine dependence, uncomplicated; F12.20 Cannabis dependence, uncomplicated; F19.20 Other psychoactive substance dependence, uncomplicated; F17.210 Nicotine dependence, cigarettes, uncomplicated; F19.24 Other psychoactive substance dependence with psychoactive substance-induced mood disorder; F43.10 Post-traumatic stress disorder, unspecified; I10 Essential (primary) hypertension; J45.20 Mild intermittent asthma, uncomplicated; G47.00 Insomnia, unspecified; M10.9 Gout, unspecified; M17.12 Unilateral primary osteoarthritis, left knee; R76.11 Nonspecific reaction to tuberculin skin test without active tuberculosis; B19.20 Unspecified viral hepatitis C without hepatic coma; Z86.69 Personal history of other diseases of the nervous system and sense organs; Z99.89 Dependence on other enabling machines and devices; Z91.018 Allergy to other foods; Z56.0 Unemployment, unspecified; Z59.0 Homelessness; Z91.19 Patient's noncompliance with other medical treatment and regimen
CPT/HCPCS: 36415; 71046-TC-FY; 80053; 85027; 86780; 87389; U0003

== ENCOUNTER 2020-04-12 11:40 | Inpatient (IN) | payer OTHER ==
--- NOTE | 2020-04-12 08:38 | HP ---
[facility] Rehab Assess/Revision - Admission History Admitted to Rehab from: [facility] Date of Admission to Rehab: 04/12/20 - Findings Detox History & Physical reviewed: Yes Concur with findings: Yes Comments/Additional Findings: transferred from detox to rehab admission as per protocol Inpatient Rehab Admission - Rehab Decision to Admit Inpatient rehab admission?: Yes - Initial Determination Are CD services needed?: Yes Free of communicable disease: Yes Not in need of hospitalization: Yes - Rehab Admission Criteria Previous failed treatment: Yes Poor recovery environment: Yes Comorbidities: Yes Lacks judgement: Yes Patient is meeting Inpatient Rehab admission criteria:: Yes
[2020-04-12] MEDS ORDERED: LOPERAMIDE HCL 2 MG CAPSULE PO PRN (12:04)
[2020-04-12] MEDS ORDERED: MAGNESIUM CITRATE 300 ML BOTTLE PO PRN (12:04)
[2020-04-12] MEDS ORDERED: P-EPHED 60MG/TRIPROLIDI 2.5MG TABLET PO PRN (12:04)
[2020-04-12] MEDS ORDERED: MAG HYDROX/AL HYDROX/SIMETH 30 ML UNIT-DOSE CUP PO PRN (12:04)
[2020-04-12] MEDS ORDERED: NICOTINE POLACRILEX 2 MG GUM BUC PRN (12:04)
[2020-04-12] MEDS ORDERED: guaiFENesin 200 MG/10 ML 10 ML UNIT-DOSE CUPS PO PRN (12:04)
[2020-04-12] MEDS: HYDROCORTISONE 0.5% TOPICAL CREAM 30 GM TUBE TP SCH ×3 (13:34→21:25)
--- NOTE | 2020-04-12 14:53 | CONSULT ---
[facility] Psychiatric Consult - Data Date of interview: 04/12/20 Admission source: Transfer from [address] [place] [address]. Identifying data: Detoxification completed at [address] [place] [address]. Patient has now entered rehabilitation treatment at [address] for continuity of care (revisit his DENILSON issues + manage co-morbid psychiatric disorders : MDD and PTSD). Patient is a 59 y/o male, , a father of two, homeless, unemployed and supported on SSI benefits. Substance Abuse History: Rediscussed with the patient. DENILSON profile as follows : Smoking history: Current every day smoker. Have you smoked in the past 12 months: Yes. Aproximately how many cigarettes per day: 20. Cigars Per Day: 0. Hx Chewing Tobacco Use: No. Initiated information on smoking cessation: Yes. 'Breaking Loose' booklet given: 04/07/20. - Substances abused. Alcohol. Substance route: Oral. Frequency: Daily. Amount used: 3-4 pints vodka. Age of first use: 13. Date of last use: 04/07/20. Marijuana/Hashish. Substance route: Smoking. Frequency: 3-6 times per week. Amount used: 1 gram. Age of first use: 12. Date of last use: 04/05/20. K2/Spice. Substance route: Smoking. Amount used: $5. Age of first use: 56. Date of last use: 04/05/20. History of multiple DENILSON treatment failures. Medical History: Medical profile is remarkable for hepatitis C, bronchial asthma, hypertension, arthritis (left knee), gout, alcohol-related seizures and a history of orthosurgery in 1976 (fracture of left hand). Psychiatric History: History taken at [address] [place] [address] (by consumer loan underwriter) three days ago. No changes. As follows : history of multiple psychiatric hospitalizations ([facility] + [facility] + [facility] + [facility]). Reportedly diagnosed with MDD + PTSD. Mr Leal reports no psychiatric OPD follow-up care for several months. Patient states that he wants to resume the medication " for paranoia." Has no recall on names of medications prescribed in the past (records indicate past treatment with a combination of abilify 10 mg/day + trazodone 100 mg/hs). Patient denies history of suicide attempts. Physical/Sexual Abuse/Trauma History: Patient denies. Additional Comment: Urine drug screen results: THC-Marijuana, BZO- Benzodiazepines. Noted on admission to the detox unit (04/07/20). Mental Status Exam - Mental Status Exam Alert and Oriented to: Time, Place, Person Cognitive Function: Good Patient Appearance: Well Groomed Mood: Withdrawn, Hopeful Affect: Constricted Patient Behavior: Appropriate, Cooperative Speech Pattern: Clear, Appropriate Voice Loudness: Normal Thought Process: Intact, Goal Oriented Thought Disorder: Not Present Hallucinations: Denies Suicidal Ideation: Denies Homicidal Ideation: Denies Insight/Judgement: Fair Sleep: Well Appetite: Fair Gait/Station: Normal Psychiatric Findings - Problem List ([place] 1, 2,3) (1) Alcohol use disorder Current Visit: Yes Status: Chronic (2) Cannabis dependence Current Visit: Yes Status: Chronic (3) Nicotine dependence Current Visit: Yes Status: Chronic (4) History of posttraumatic stress disorder (PTSD) Current Visit: Yes Status: Chronic - Initial Treatment Plan Initial Treatment Plan: Rehabilitation initiated. Groups (COVID-19 guidelines in effect : face mask, social distancing, handwashing). Supportive therapy. Motivational counseling. Resumed : abilify 5 mg po daily + trazodone 100 mg po hs. Side effects/benefits discussed and patient's informed consent (verbal) granted to MD. Nguyen.
[2020-04-12] MEDS ORDERED: PT OWN MED DRAWER 7, Y5N ONE ×3 (16:44→22:16)
[2020-04-12] MEDS: ACETAMINOPHEN 325 MG TABLET (FP) PO PRN (18:06)
[2020-04-12] MEDS: ALBUTEROL SO4 HFA INHALER IH PRN (18:08)
[2020-04-12] MEDS: THIAMINE HCL 100 MG TABLET (FP) PO SCH (21:22)
[2020-04-12] MEDS: hydrOXYzine PAMOATE 25 MG CAPSULE (FP) PO PRN (21:23)
[2020-04-12] MEDS: traZODone HCL 100 MG TABLET (FP) PO SCH (21:24)
[2020-04-12] MEDS: METHYL SALICYLATE/MENTHOL OINT 30 GM TUBE TP SCH (21:25)
[2020-04-12] MEDS: MELATONIN 5 MG TABLETS PO SCH (21:25)
[2020-04-13] MEDS: hydrOXYzine PAMOATE 25 MG CAPSULE (FP) PO PRN ×2 (02:15→21:22)
[2020-04-13] MEDS: ALBUTEROL SO4 HFA INHALER IH PRN ×2 (06:52→10:21)
[2020-04-13] MEDS: PRENATAL VITAMINS W/ FOLIC ACID TABLET (FP) PO SCH (09:38)
[2020-04-13] MEDS: HYDROCORTISONE 0.5% TOPICAL CREAM 30 GM TUBE TP SCH ×4 (09:38→21:22)
[2020-04-13] MEDS: ARIPiprazole 5 MG TABLET PO SCH (09:38)
[2020-04-13] MEDS: ASPIRIN 81 MG CHEWABLE TABLETS PO SCH (09:38)
[2020-04-13] MEDS: amLODIPine BESYLATE 10 MG TABLET (FP) PO SCH (09:40)
[2020-04-13] MEDS: NICOTINE 7 MG/24 HOURS TOPICAL PATCH TD SCH (09:40)
[2020-04-13] MEDS ORDERED: PT OWN MED DRAWER 7, Y5N ONE (13:28)
--- NOTE | 2020-04-13 15:53 | PN ---
Psychiatric Progress Note Vital Signs: Vital Signs Period Temp Pulse Resp BP Sys/Ramirez Pulse Ox Last 24 Hr 97.3 F 89-94 16 105-145/63-76 97-97 Date of Session: 04/13/20 Chief Complaint:: " I cannot sleep at night." HPI: Called to evaluate this patient presenting with complaint of depression + anxiety + chronic insomnia. Mr Leal has received detoxification at [address] [place] [address]. Feels dysphoric and experiences difficulty to sleep at night. ROS: Unremarkable. Current Medications: Active Medications Generic Name Dose Route Start Last Admin Trade Name Freq PRN Reason Stop Dose Admin Acetaminophen 650 mg 04/12/20 12:04 04/12/20 18:06 Tylenol - PO 650 mg Q4H PRN Administration FEVER Al Hydroxide/Mg Hydroxide 30 ml 04/12/20 12:04 Mylanta Oral Suspension - PO Q6H PRN DYSPEPSIA Albuterol Sulfate 2 puff 04/12/20 12:08 04/13/20 10:21 Ventolin Hfa Inhaler - IH 2 inh Q4H PRN Administration ASTHMA Amlodipine Besylate 10 mg 04/13/20 10:00 04/13/20 09:40 Norvasc - PO 10 mg DAILY REDD Administration Aripiprazole 5 mg 04/13/20 10:00 04/13/20 09:38 Abilify PO 5 mg DAILY REDD Administration Aspirin 81 mg 04/13/20 10:00 04/13/20 09:38 Asa - PO 81 mg DAILY REDD Administration Guaifenesin 10 ml 04/12/20 12:04 Robitussin - PO Q6H PRN COUGH Hydrocortisone 1 applic 04/12/20 14:00 04/13/20 13:44 Hytone 0.5% Cream - TP Not Given QID REDD Hydroxyzine Pamoate 25 mg 04/12/20 12:04 04/13/20 02:15 Vistaril - PO 25 mg Q4HWA PRN Administration ANXIETY Loperamide HCl 4 mg 04/12/20 12:04 Imodium - PO Q6H PRN DIARRHEA Magnesium Citrate 300 ml 04/12/20 12:04 Citroma - PO Q48H PRN CONSTIPATION Magnesium Hydroxide 30 ml 04/12/20 12:04 Milk Of Magnesia - PO DAILY PRN CONSTIPATION Melatonin 5 mg 04/12/20 22:00 04/12/20 21:25 Melatonin PO 5 mg HS REDD Administration Methyl Salicylate 1 applic 04/12/20 22:00 04/12/20 21:25 Conner-Yancey - TP 1 applic DAILY@2200 REDD Administration Nicotine 7 mg 04/13/20 10:00 04/13/20 09:40 Nicoderm Patch - TD 7 mg DAILY REDD Administration Nicotine Polacrilex 2 mg 04/12/20 12:04 Nicorette Gum - BUC Q2H PRN NICOTINE REPLACEMENT RX Multivit/Folic Acid/Iron 1 tab 04/13/20 10:00 04/13/20 09:38 Vitamins (Sjr) - PO 1 tab DAILY REDD Administration Pseudoephedrine/Triprolidine 1 combo 04/12/20 12:04 Actifed - PO TID PRN NASAL CONGESTION Thiamine HCl 100 mg 04/12/20 22:00 04/12/20 21:22 Vitamin B1 - PO 100 mg HS REDD Administration Trazodone HCl 100 mg 04/12/20 22:00 04/12/20 21:24 Desyrel - PO 100 mg HS REDD Administration Medication(s) Change(s): Lexapro 5 mg po daily + belsomra 5 mg po hs prn are added to the regimen (with the patient's informed consent). Side effects/be nefits discussed. Mr Leal is in agreement with this plan of care. Current Side Effect: No Lab tests ordered: No Lab tests reviewed: Yes Provider note:: Chart reviewed. Met with the patient. Complaints (insomnia, depressed mood) are validated. Reassurance and support provided to the patient. Principles of sleep hygiene are discussed. Medications revisited. Mr Leal reports feeling sad about past personal events (losses in the family, financial hardships, limited support). He is motivated for treatment. Denies suicidal or homicidal ideation, intent or plan. Medications are adjusted. Will follow progress. Mental status is stable. See MSE report for details. Total face to face time:: 35 Mental Status Exam - Mental Status Exam Alert and Oriented to: Time, Place, Person Cognitive Function: Good Patient Appearance: Well Groomed Mood: Sad, Withdrawn, Anxious Affect: Mood Congruent, Constricted Patient Behavior: Fatigued, Appropriate, Cooperative Speech Pattern: Clear, Appropriate Voice Loudness: Normal Thought Process: Intact, Goal Oriented Thought Disorder: Not Present Hallucinations: Denies Suicidal Ideation: Denies Homicidal Ideation: Denies Insight/Judgement: Poor Sleep: Poorly, Difficulty falling asleep Appetite: Good Gait/Station: Other (walks with a cane) Psychiatric Treatment Plan - Problem List (1) Alcohol use disorder Current Visit: Yes Comment: . (2) Cannabis dependence Current Visit: Yes Comment: . (3) Nicotine dependence Current Visit: Yes Comment: . (4) History of posttraumatic stress disorder (PTSD) Current Visit: Yes Comment: .
[2020-04-13] MEDS: MAGNESIUM HYDROX 2400MG/30ML ORAL SUSPENSION 30 ML CUP PO PRN (18:21)
[2020-04-13] MEDS: METHYL SALICYLATE/MENTHOL OINT 30 GM TUBE TP SCH (21:21)
[2020-04-13] MEDS: THIAMINE HCL 100 MG TABLET (FP) PO SCH (21:22)
[2020-04-13] MEDS: traZODone HCL 100 MG TABLET (FP) PO SCH (21:22)
[2020-04-13] MEDS: MELATONIN 5 MG TABLETS PO SCH (21:23)
[2020-04-13] MEDS ORDERED: SUVOREXANT 5 MG TABLET PO PRN (22:00)
[2020-04-14] MEDS ORDERED: TRIMETHOBENZAMIDE HCL 200MG/2ML INJ IM ONE (00:51)
[2020-04-14] MEDS: amLODIPine BESYLATE 10 MG TABLET (FP) PO SCH (09:30)
[2020-04-14] MEDS: PRENATAL VITAMINS W/ FOLIC ACID TABLET (FP) PO SCH (09:30)
[2020-04-14] MEDS: ASPIRIN 81 MG CHEWABLE TABLETS PO SCH (09:31)
[2020-04-14] MEDS: HYDROCORTISONE 0.5% TOPICAL CREAM 30 GM TUBE TP SCH ×4 (09:31→21:12)
[2020-04-14] MEDS: ESCITALOPRAM OXALATE 10 MG TABLET PO SCH (09:31)
[2020-04-14] MEDS: NICOTINE 7 MG/24 HOURS TOPICAL PATCH TD SCH (09:31)
[2020-04-14] MEDS: ARIPiprazole 5 MG TABLET PO SCH (09:31)
--- NOTE | 2020-04-14 10:16 | PN ---
[facility] Progress Note Note: patient admitted to rehab. stable, no urgent medical complaints at this time. Seen by the psychiatric service. labs. home medications, problem list reviewed. P/E: General: no apparent distress HEENTM: normocephalic NECK: supple MSK: full weight bearing NEURO: A +O x4, Vital Signs Period Temp Pulse Resp BP Sys/Ramirez Pulse Ox Last 24 Hr 97.7 F 82 18 124/82 97-97 Plan: Rehab treatment Hydration and Nutrition maintain safety
[2020-04-14] MEDS: ACETAMINOPHEN 325 MG TABLET (FP) PO PRN (16:46)
[2020-04-14] MEDS: THIAMINE HCL 100 MG TABLET (FP) PO SCH (21:11)
[2020-04-14] MEDS: MELATONIN 5 MG TABLETS PO SCH (21:11)
[2020-04-14] MEDS: traZODone HCL 100 MG TABLET (FP) PO SCH (21:11)
[2020-04-14] MEDS: METHYL SALICYLATE/MENTHOL OINT 30 GM TUBE TP SCH (21:12)
[2020-04-15] MEDS: ASPIRIN 81 MG CHEWABLE TABLETS PO SCH (09:29)
[2020-04-15] MEDS: ARIPiprazole 5 MG TABLET PO SCH (09:29)
[2020-04-15] MEDS: NICOTINE 7 MG/24 HOURS TOPICAL PATCH TD SCH (09:30)
[2020-04-15] MEDS: HYDROCORTISONE 0.5% TOPICAL CREAM 30 GM TUBE TP SCH ×4 (09:30→21:32)
[2020-04-15] MEDS: ESCITALOPRAM OXALATE 10 MG TABLET PO SCH (09:30)
[2020-04-15] MEDS: amLODIPine BESYLATE 10 MG TABLET (FP) PO SCH (09:31)
[2020-04-15] MEDS: PRENATAL VITAMINS W/ FOLIC ACID TABLET (FP) PO SCH (09:31)
[2020-04-15] MEDS: ALBUTEROL SO4 HFA INHALER IH PRN ×2 (13:13→22:04)
[2020-04-15] MEDS: ACETAMINOPHEN 325 MG TABLET (FP) PO PRN (19:25)
[2020-04-15] MEDS ORDERED: PT OWN MED DRAWER 7, Y5N ONE (19:47)
[2020-04-15] MEDS: traZODone HCL 100 MG TABLET (FP) PO SCH (21:31)
[2020-04-15] MEDS: MELATONIN 5 MG TABLETS PO SCH (21:31)
[2020-04-15] MEDS: THIAMINE HCL 100 MG TABLET (FP) PO SCH (21:31)
[2020-04-15] MEDS: METHYL SALICYLATE/MENTHOL OINT 30 GM TUBE TP SCH (21:49)
[2020-04-16] MEDS: ALBUTEROL SO4 HFA INHALER IH PRN (06:42)
[2020-04-16] MEDS: ASPIRIN 81 MG CHEWABLE TABLETS PO SCH (09:43)
[2020-04-16] MEDS: ESCITALOPRAM OXALATE 10 MG TABLET PO SCH (09:43)
[2020-04-16] MEDS: amLODIPine BESYLATE 10 MG TABLET (FP) PO SCH (09:43)
[2020-04-16] MEDS: ARIPiprazole 5 MG TABLET PO SCH (09:43)
[2020-04-16] MEDS: NICOTINE 7 MG/24 HOURS TOPICAL PATCH TD SCH (09:43)
[2020-04-16] MEDS: HYDROCORTISONE 0.5% TOPICAL CREAM 30 GM TUBE TP SCH ×4 (09:45→21:34)
[2020-04-16] MEDS: PRENATAL VITAMINS W/ FOLIC ACID TABLET (FP) PO SCH (09:45)
[2020-04-16] MEDS ORDERED: MASKS NR ONE (14:15)
--- NOTE | 2020-04-16 16:17 | PN ---
S Progress Note Note: Psychiatry Attending's note : Called for renewal of suvorexant. Belsomra 5 mg po hs prn. Resumed.
[2020-04-16] MEDS: MELATONIN 5 MG TABLETS PO SCH (21:24)
[2020-04-16] MEDS: THIAMINE HCL 100 MG TABLET (FP) PO SCH (21:24)
[2020-04-16] MEDS: traZODone HCL 100 MG TABLET (FP) PO SCH (21:24)
[2020-04-16] MEDS ORDERED: PT OWN MED DRAWER 7, Y5N ONE (21:26)
[2020-04-16] MEDS: METHYL SALICYLATE/MENTHOL OINT 30 GM TUBE TP SCH (21:27)
[2020-04-16] MEDS ORDERED: SUVOREXANT 5 MG TABLET PO PRN (22:00)
[2020-04-17] MEDS: amLODIPine BESYLATE 10 MG TABLET (FP) PO SCH (09:34)
[2020-04-17] MEDS: NICOTINE 7 MG/24 HOURS TOPICAL PATCH TD SCH (09:34)
[2020-04-17] MEDS: ASPIRIN 81 MG CHEWABLE TABLETS PO SCH (09:34)
[2020-04-17] MEDS: ARIPiprazole 5 MG TABLET PO SCH (09:34)
[2020-04-17] MEDS: ESCITALOPRAM OXALATE 10 MG TABLET PO SCH (09:34)
[2020-04-17] MEDS: PRENATAL VITAMINS W/ FOLIC ACID TABLET (FP) PO SCH (09:34)
[2020-04-17] MEDS: HYDROCORTISONE 0.5% TOPICAL CREAM 30 GM TUBE TP SCH ×4 (09:34→21:31)
[2020-04-17] MEDS: THIAMINE HCL 100 MG TABLET (FP) PO SCH (21:06)
[2020-04-17] MEDS: ALBUTEROL SO4 HFA INHALER IH PRN (21:06)
[2020-04-17] MEDS: traZODone HCL 100 MG TABLET (FP) PO SCH (21:06)
[2020-04-17] MEDS: MELATONIN 5 MG TABLETS PO SCH (21:06)
[2020-04-17] MEDS: METHYL SALICYLATE/MENTHOL OINT 30 GM TUBE TP SCH (21:31)
[2020-04-18] MEDS: NICOTINE 7 MG/24 HOURS TOPICAL PATCH TD SCH (10:04)
[2020-04-18] MEDS: hydrOXYzine PAMOATE 25 MG CAPSULE (FP) PO PRN (10:05)
[2020-04-18] MEDS: TOLNAFTATE 1% POWDER 45 GM POW TP SCH ×2 (10:05→21:25)
[2020-04-18] MEDS: ASPIRIN 81 MG CHEWABLE TABLETS PO SCH (10:05)
[2020-04-18] MEDS: ESCITALOPRAM OXALATE 10 MG TABLET PO SCH (10:06)
[2020-04-18] MEDS: amLODIPine BESYLATE 10 MG TABLET (FP) PO SCH (10:06)
[2020-04-18] MEDS: ARIPiprazole 5 MG TABLET PO SCH (10:06)
[2020-04-18] MEDS: HYDROCORTISONE 0.5% TOPICAL CREAM 30 GM TUBE TP SCH ×4 (10:06→21:25)
[2020-04-18] MEDS: PRENATAL VITAMINS W/ FOLIC ACID TABLET (FP) PO SCH (10:07)
[2020-04-18] MEDS: ALBUTEROL SO4 HFA INHALER IH PRN (10:09)
[2020-04-18] MEDS: traZODone HCL 100 MG TABLET (FP) PO SCH (21:24)
[2020-04-18] MEDS: MELATONIN 5 MG TABLETS PO SCH (21:24)
[2020-04-18] MEDS: THIAMINE HCL 100 MG TABLET (FP) PO SCH (21:24)
[2020-04-18] MEDS: METHYL SALICYLATE/MENTHOL OINT 30 GM TUBE TP SCH (21:25)
[2020-04-19] MEDS: hydrOXYzine PAMOATE 25 MG CAPSULE (FP) PO PRN (10:19)
[2020-04-19] MEDS: NICOTINE 7 MG/24 HOURS TOPICAL PATCH TD SCH (10:19)
[2020-04-19] MEDS: amLODIPine BESYLATE 10 MG TABLET (FP) PO SCH (10:19)
[2020-04-19] MEDS: ESCITALOPRAM OXALATE 10 MG TABLET PO SCH (10:20)
[2020-04-19] MEDS: HYDROCORTISONE 0.5% TOPICAL CREAM 30 GM TUBE TP SCH ×4 (10:20→21:10)
[2020-04-19] MEDS: TOLNAFTATE 1% POWDER 45 GM POW TP SCH ×2 (10:20→21:10)
[2020-04-19] MEDS: PRENATAL VITAMINS W/ FOLIC ACID TABLET (FP) PO SCH (10:20)
[2020-04-19] MEDS: ASPIRIN 81 MG CHEWABLE TABLETS PO SCH (10:20)
[2020-04-19] MEDS: ARIPiprazole 5 MG TABLET PO SCH (10:20)
[2020-04-19] MEDS: ALBUTEROL SO4 HFA INHALER IH PRN (10:22)
--- NOTE | 2020-04-19 14:47 | PN ---
S Progress Note Note: c/ left knee pain, reports hx of gout and states he had his knee drained x3. Requesting brace for knee Vital Signs Period Temp Pulse Resp BP Sys/Ramirez Pulse Ox Last 24 Hr 97.3 F-98 F 78-88 18-18 121-129/73-86 98-98 P/E; general: no apparent distress MSK: full weight bearing, Full ROM, steady gait neuro: Muscle strength equal Offered patient SALVATORE bandage, refused. Patient did not want to listen to explanation of reason we could not provide brace (requires orthopedic evaluation and fitting). Will provide SALVATORE bandage, lidoderm patch, and muscle relaxant for patient's use. Will also provide GUERO stocking ( for support to reduce edema)
[2020-04-19] MEDS: LIDOCAINE 5% TOPICAL PATCH TP SCH (14:57)
[2020-04-19] MEDS: ACETAMINOPHEN 325 MG TABLET (FP) PO PRN (17:58)
[2020-04-19] MEDS: MELATONIN 5 MG TABLETS PO SCH (21:07)
[2020-04-19] MEDS: traZODone HCL 100 MG TABLET (FP) PO SCH (21:07)
[2020-04-19] MEDS: THIAMINE HCL 100 MG TABLET (FP) PO SCH (21:07)
[2020-04-19] MEDS: LIDOCAINE PATCH REMOVAL MC SCH (21:09)
[2020-04-19] MEDS: METHYL SALICYLATE/MENTHOL OINT 30 GM TUBE TP SCH (21:10)
[2020-04-19] MEDS: METHOCARBAMOL 500 MG TABLET PO SCH (21:57)
[2020-04-19] MEDS ORDERED: SUVOREXANT 5 MG TABLET PO PRN (22:00)
[2020-04-20] MEDS: METHOCARBAMOL 500 MG TABLET PO SCH ×3 (06:15→21:48)
[2020-04-20] MEDS: ALBUTEROL SO4 HFA INHALER IH PRN ×2 (06:16→09:38)
[2020-04-20] MEDS ORDERED: PT OWN MED DRAWER 7, Y5N ONE (08:41)
[2020-04-20] MEDS: NICOTINE 7 MG/24 HOURS TOPICAL PATCH TD SCH (09:34)
[2020-04-20] MEDS: ESCITALOPRAM OXALATE 10 MG TABLET PO SCH (09:35)
[2020-04-20] MEDS: ARIPiprazole 5 MG TABLET PO SCH (09:35)
[2020-04-20] MEDS: ASPIRIN 81 MG CHEWABLE TABLETS PO SCH (09:35)
[2020-04-20] MEDS: HYDROCORTISONE 0.5% TOPICAL CREAM 30 GM TUBE TP SCH ×4 (09:35→21:50)
[2020-04-20] MEDS: amLODIPine BESYLATE 10 MG TABLET (FP) PO SCH (09:35)
[2020-04-20] MEDS: PRENATAL VITAMINS W/ FOLIC ACID TABLET (FP) PO SCH (09:37)
[2020-04-20] MEDS: TOLNAFTATE 1% POWDER 45 GM POW TP SCH ×2 (09:38→21:50)
[2020-04-20] MEDS: LIDOCAINE 5% TOPICAL PATCH TP SCH (10:23)
[2020-04-20] MEDS: traZODone HCL 100 MG TABLET (FP) PO SCH (21:48)
[2020-04-20] MEDS: LIDOCAINE PATCH REMOVAL MC SCH (21:48)
[2020-04-20] MEDS: MELATONIN 5 MG TABLETS PO SCH (21:48)
[2020-04-20] MEDS: METHYL SALICYLATE/MENTHOL OINT 30 GM TUBE TP SCH (21:50)
[2020-04-20] MEDS: THIAMINE HCL 100 MG TABLET (FP) PO SCH (21:50)
[2020-04-21] MEDS: METHOCARBAMOL 500 MG TABLET PO SCH ×3 (06:29→21:43)
[2020-04-21] MEDS ORDERED: PT OWN MED DRAWER 7, Y5N ONE ×2 (08:28→23:21)
[2020-04-21] MEDS: ASPIRIN 81 MG CHEWABLE TABLETS PO SCH (10:39)
[2020-04-21] MEDS: ARIPiprazole 5 MG TABLET PO SCH (10:39)
[2020-04-21] MEDS: amLODIPine BESYLATE 10 MG TABLET (FP) PO SCH (10:39)
[2020-04-21] MEDS: ESCITALOPRAM OXALATE 10 MG TABLET PO SCH (10:39)
[2020-04-21] MEDS: HYDROCORTISONE 0.5% TOPICAL CREAM 30 GM TUBE TP SCH ×4 (10:39→21:46)
[2020-04-21] MEDS: TOLNAFTATE 1% POWDER 45 GM POW TP SCH ×2 (10:40→21:46)
[2020-04-21] MEDS: LIDOCAINE 5% TOPICAL PATCH TP SCH (10:40)
[2020-04-21] MEDS: NICOTINE 7 MG/24 HOURS TOPICAL PATCH TD SCH (10:40)
[2020-04-21] MEDS: PRENATAL VITAMINS W/ FOLIC ACID TABLET (FP) PO SCH ×2 (10:40→10:43)
[2020-04-21] MEDS ORDERED: MASKS NR ONE (17:23)
[2020-04-21] MEDS: MELATONIN 5 MG TABLETS PO SCH (21:43)
[2020-04-21] MEDS: THIAMINE HCL 100 MG TABLET (FP) PO SCH (21:43)
[2020-04-21] MEDS: LIDOCAINE PATCH REMOVAL MC SCH (21:43)
[2020-04-21] MEDS: traZODone HCL 100 MG TABLET (FP) PO SCH (21:43)
[2020-04-21] MEDS: MAGNESIUM HYDROX 2400MG/30ML ORAL SUSPENSION 30 ML CUP PO PRN (21:44)
[2020-04-21] MEDS: METHYL SALICYLATE/MENTHOL OINT 30 GM TUBE TP SCH (21:45)
[2020-04-21] MEDS ORDERED: SUVOREXANT 5 MG TABLET PO PRN (22:00)
[2020-04-22] MEDS: METHOCARBAMOL 500 MG TABLET PO SCH ×3 (06:46→21:55)
[2020-04-22] MEDS: amLODIPine BESYLATE 10 MG TABLET (FP) PO SCH (10:34)
[2020-04-22] MEDS: ASPIRIN 81 MG CHEWABLE TABLETS PO SCH (10:34)
[2020-04-22] MEDS: ARIPiprazole 5 MG TABLET PO SCH (10:34)
[2020-04-22] MEDS: LIDOCAINE 5% TOPICAL PATCH TP SCH (10:35)
[2020-04-22] MEDS: ESCITALOPRAM OXALATE 10 MG TABLET PO SCH (10:35)
[2020-04-22] MEDS: HYDROCORTISONE 0.5% TOPICAL CREAM 30 GM TUBE TP SCH ×4 (10:35→21:55)
[2020-04-22] MEDS: NICOTINE 7 MG/24 HOURS TOPICAL PATCH TD SCH (10:36)
[2020-04-22] MEDS: PRENATAL VITAMINS W/ FOLIC ACID TABLET (FP) PO SCH (10:39)
[2020-04-22] MEDS: TOLNAFTATE 1% POWDER 45 GM POW TP SCH ×2 (10:39→21:56)
[2020-04-22] MEDS: ALBUTEROL SO4 HFA INHALER IH PRN ×2 (10:39→21:55)
[2020-04-22] MEDS ORDERED: PT OWN MED DRAWER 7, Y5N ONE (18:34)
[2020-04-22] MEDS: THIAMINE HCL 100 MG TABLET (FP) PO SCH (21:54)
[2020-04-22] MEDS: METHYL SALICYLATE/MENTHOL OINT 30 GM TUBE TP SCH (21:55)
[2020-04-22] MEDS: MELATONIN 5 MG TABLETS PO SCH (21:55)
[2020-04-22] MEDS: LIDOCAINE PATCH REMOVAL MC SCH (21:55)
[2020-04-22] MEDS: traZODone HCL 100 MG TABLET (FP) PO SCH (21:55)
[2020-04-23] MEDS: METHOCARBAMOL 500 MG TABLET PO SCH ×3 (07:09→21:10)
[2020-04-23] MEDS ORDERED: PT OWN MED DRAWER 7, Y5N ONE (08:33)
[2020-04-23] MEDS: NICOTINE 7 MG/24 HOURS TOPICAL PATCH TD SCH (10:03)
[2020-04-23] MEDS: PRENATAL VITAMINS W/ FOLIC ACID TABLET (FP) PO SCH (10:03)
[2020-04-23] MEDS: ASPIRIN 81 MG CHEWABLE TABLETS PO SCH (10:04)
[2020-04-23] MEDS: ARIPiprazole 5 MG TABLET PO SCH (10:04)
[2020-04-23] MEDS: amLODIPine BESYLATE 10 MG TABLET (FP) PO SCH (10:04)
[2020-04-23] MEDS: ESCITALOPRAM OXALATE 10 MG TABLET PO SCH (10:04)
[2020-04-23] MEDS: HYDROCORTISONE 0.5% TOPICAL CREAM 30 GM TUBE TP SCH ×4 (10:05→21:10)
[2020-04-23] MEDS: TOLNAFTATE 1% POWDER 45 GM POW TP SCH ×2 (10:05→21:10)
[2020-04-23] MEDS: LIDOCAINE 5% TOPICAL PATCH TP SCH (10:05)
[2020-04-23] MEDS: ACETAMINOPHEN 325 MG TABLET (FP) PO PRN (14:47)
[2020-04-23] MEDS: MELATONIN 5 MG TABLETS PO SCH (21:07)
[2020-04-23] MEDS: traZODone HCL 100 MG TABLET (FP) PO SCH (21:07)
[2020-04-23] MEDS: hydrOXYzine PAMOATE 25 MG CAPSULE (FP) PO PRN (21:07)
[2020-04-23] MEDS: LIDOCAINE PATCH REMOVAL MC SCH (21:08)
[2020-04-23] MEDS: THIAMINE HCL 100 MG TABLET (FP) PO SCH (21:08)
[2020-04-23] MEDS: METHYL SALICYLATE/MENTHOL OINT 30 GM TUBE TP SCH (21:10)
[2020-04-24] MEDS: METHOCARBAMOL 500 MG TABLET PO SCH ×3 (07:09→21:41)
[2020-04-24] MEDS: ARIPiprazole 5 MG TABLET PO SCH (11:55)
[2020-04-24] MEDS: amLODIPine BESYLATE 10 MG TABLET (FP) PO SCH (11:55)
[2020-04-24] MEDS: ASPIRIN 81 MG CHEWABLE TABLETS PO SCH (11:55)
[2020-04-24] MEDS: ESCITALOPRAM OXALATE 10 MG TABLET PO SCH (11:55)
[2020-04-24] MEDS: HYDROCORTISONE 0.5% TOPICAL CREAM 30 GM TUBE TP SCH ×4 (12:43→21:40)
[2020-04-24] MEDS: PRENATAL VITAMINS W/ FOLIC ACID TABLET (FP) PO SCH (12:44)
[2020-04-24] MEDS: TOLNAFTATE 1% POWDER 45 GM POW TP SCH ×2 (12:44→21:41)
[2020-04-24] MEDS: LIDOCAINE 5% TOPICAL PATCH TP SCH (12:44)
[2020-04-24] MEDS: NICOTINE 7 MG/24 HOURS TOPICAL PATCH TD SCH (12:45)
[2020-04-24] MEDS: LIDOCAINE PATCH REMOVAL MC SCH (21:40)
[2020-04-24] MEDS: traZODone HCL 100 MG TABLET (FP) PO SCH (21:40)
[2020-04-24] MEDS: THIAMINE HCL 100 MG TABLET (FP) PO SCH (21:40)
[2020-04-24] MEDS: MELATONIN 5 MG TABLETS PO SCH (21:40)
[2020-04-24] MEDS: METHYL SALICYLATE/MENTHOL OINT 30 GM TUBE TP SCH (21:41)
[2020-04-24] MEDS: hydrOXYzine PAMOATE 25 MG CAPSULE (FP) PO PRN (21:41)
[2020-04-24] MEDS: ALBUTEROL SO4 HFA INHALER IH PRN (21:41)
[2020-04-25] MEDS: METHOCARBAMOL 500 MG TABLET PO SCH ×3 (06:40→21:10)
[2020-04-25] MEDS: amLODIPine BESYLATE 10 MG TABLET (FP) PO SCH (10:13)
[2020-04-25] MEDS: ASPIRIN 81 MG CHEWABLE TABLETS PO SCH (10:13)
[2020-04-25] MEDS: ESCITALOPRAM OXALATE 10 MG TABLET PO SCH (10:14)
[2020-04-25] MEDS: PRENATAL VITAMINS W/ FOLIC ACID TABLET (FP) PO SCH (10:14)
[2020-04-25] MEDS: HYDROCORTISONE 0.5% TOPICAL CREAM 30 GM TUBE TP SCH ×4 (10:14→21:10)
[2020-04-25] MEDS: TOLNAFTATE 1% POWDER 45 GM POW TP SCH ×2 (10:14→21:10)
[2020-04-25] MEDS: ARIPiprazole 5 MG TABLET PO SCH (10:14)
[2020-04-25] MEDS: hydrOXYzine PAMOATE 25 MG CAPSULE (FP) PO PRN ×2 (10:14→21:09)
[2020-04-25] MEDS: LIDOCAINE 5% TOPICAL PATCH TP SCH (10:15)
[2020-04-25] MEDS: NICOTINE 7 MG/24 HOURS TOPICAL PATCH TD SCH (10:15)
[2020-04-25] MEDS: ALBUTEROL SO4 HFA INHALER IH PRN (10:16)
--- NOTE | 2020-04-25 12:20 | PN ---
[facility] Progress Note Note: Patient is scheduled for discharge on 04/27/20. Scripts for 30 days supply of medications(Abilify 5 mg/day, Lexapro 5 mg/day, Trazadone 100 mg/hs) will be electronically transmitted to [facility], [address] [place] [address]
[2020-04-25] MEDS: THIAMINE HCL 100 MG TABLET (FP) PO SCH (21:08)
[2020-04-25] MEDS: traZODone HCL 100 MG TABLET (FP) PO SCH (21:09)
[2020-04-25] MEDS: LIDOCAINE PATCH REMOVAL MC SCH (21:09)
[2020-04-25] MEDS: MELATONIN 5 MG TABLETS PO SCH (21:10)
[2020-04-25] MEDS: METHYL SALICYLATE/MENTHOL OINT 30 GM TUBE TP SCH (21:10)
[2020-04-26] MEDS: METHOCARBAMOL 500 MG TABLET PO SCH ×3 (06:44→21:26)
--- NOTE | 2020-04-26 08:51 | DS ---
[facility] Rehab Discharge Summary - [facility] Rehab Discharge Summary Admission Date: 04/12/20 Discharge Date: 04/26/20 - History Present History: Alcohol dependence, Cannabis dependence, Cocaine dependence Pertinent Past History: 59 year old male with history of alcohol dependence with withdrawal, cannabis use disorder, nicotine dependence. 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 Marijuana: 1 gram less than 3x/wk, started at age 12 and last used 04/05/20 Nicotine: 4-7 ciggs daily, started at age 12 K-2: 2 sticks $5 daily, started at age 56 and last used 04/05/20 PMH: HNT, Asthma, HCV, Gout Psrg" None Psych: PTSD, Depression He is homeless and has no legal issues. - Discharge Physical Exam Vital Signs: Vital Signs Temperature 97.8 F 04/26/20 06:24 Pulse Rate 75 04/26/20 06:24 Respiratory Rate 18 04/26/20 06:24 Blood Pressure 123/87 04/26/20 06:24 O2 Sat by Pulse Oximetry (%) 96 04/26/20 06:24 Pertinent Admission Physical Exam Findings: Physical General Appearance: no apparent distress HEENTM: EOMI, Normocephalic, Respiratory: No Respiratory Distress, No Accessory Muscle Use Neck: Supple, Abdominal:+Bowel Sounds, Musculoskeletal: full range of Motion Neurological: occupational psychologist II-XII intact, - Treatment Discharge Condition: Outpatient referral accepted (Counselor note indicates that patient will be going to [facility]. medically stable for discharge.) Hospital Course: Patient attended groups, had 1:1 with his counselor, was seen by the psychiatric service. He was adherent to his medication regimen and treatment plan. He had no acute or urgent medical problems while in rehab. - Medication Discharge Medications: Ambulatory Orders Albuterol Sulfate Inhaler - [Ventolin HFA Inhaler -] 2 inh PO Q4H PRN #1 inhaler 10/15/19 Amlodipine Besylate [Norvasc -] 10 mg PO DAILY #14 tablet 10/15/19 Aspirin 81 mg PO DAILY #14 tab.chew 10/15/19 traZODone HCL [Trazodone HCl] 100 mg PO HS #30 tablet 10/15/19 Icy Hot Advanced Relief Cream PRN 04/07/20 Aripiprazole [Abilify -] 5 mg PO DAILY #30 tablet 04/25/20 Escitalopram Oxalate [Lexapro -] 5 mg PO DAILY #30 tablet 04/25/20 traZODone HCL [Desyrel -] 100 mg PO HS #30 tablet 04/25/20 - Medication-Assisted Treatment (MAT) Medication-Assisted Treatment (MAT): No - Discharge Instructions Diet, activity, other medical instructions: Diet: as tolerated Activity: as tolerated Other medical instructions: Please follow up with aftercare referral. - Diagnosis (1) Alcohol use disorder Current Visit: Yes Status: Chronic (2) Cannabis dependence Current Visit: Yes Status: Chronic (3) Cocaine dependence Current Visit: Yes Status: Chronic Qualifiers: Substance use status: uncomplicated Qualified Code(s): F14.20 - Cocaine de pendence, uncomplicated - Follow-up Referral Minutes to complete discharge: 15 - AMA Did Patient Leave Against Medical Advice: No
[2020-04-26] MEDS: ARIPiprazole 5 MG TABLET PO SCH (10:47)
[2020-04-26] MEDS: amLODIPine BESYLATE 10 MG TABLET (FP) PO SCH (10:47)
[2020-04-26] MEDS: hydrOXYzine PAMOATE 25 MG CAPSULE (FP) PO PRN ×3 (10:47→21:25)
[2020-04-26] MEDS: LIDOCAINE 5% TOPICAL PATCH TP SCH (10:48)
[2020-04-26] MEDS: ESCITALOPRAM OXALATE 10 MG TABLET PO SCH (10:48)
[2020-04-26] MEDS: PRENATAL VITAMINS W/ FOLIC ACID TABLET (FP) PO SCH (10:49)
[2020-04-26] MEDS: HYDROCORTISONE 0.5% TOPICAL CREAM 30 GM TUBE TP SCH ×4 (10:49→21:26)
[2020-04-26] MEDS: TOLNAFTATE 1% POWDER 45 GM POW TP SCH ×2 (10:49→21:26)
[2020-04-26] MEDS ORDERED: PT OWN MED DRAWER 7, Y5N ONE (10:50)
[2020-04-26] MEDS: ASPIRIN 81 MG CHEWABLE TABLETS PO SCH (10:50)
[2020-04-26] MEDS: NICOTINE 7 MG/24 HOURS TOPICAL PATCH TD SCH (10:50)
[2020-04-26] MEDS: ALBUTEROL SO4 HFA INHALER IH PRN (10:52)
[2020-04-26] MEDS: THIAMINE HCL 100 MG TABLET (FP) PO SCH (21:25)
[2020-04-26] MEDS: MELATONIN 5 MG TABLETS PO SCH (21:25)
[2020-04-26] MEDS: traZODone HCL 100 MG TABLET (FP) PO SCH (21:25)
[2020-04-26] MEDS: LIDOCAINE PATCH REMOVAL MC SCH (21:26)
[2020-04-26] MEDS: METHYL SALICYLATE/MENTHOL OINT 30 GM TUBE TP SCH (21:26)
[2020-04-27] MEDS: METHOCARBAMOL 500 MG TABLET PO SCH (06:21)
[2020-04-27 06:58] VITALS: TEMP 97.3
[2020-04-27] MEDS: amLODIPine BESYLATE 10 MG TABLET (FP) PO SCH (09:36)
[2020-04-27] MEDS: PRENATAL VITAMINS W/ FOLIC ACID TABLET (FP) PO SCH (09:36)
[2020-04-27] MEDS: LIDOCAINE 5% TOPICAL PATCH TP SCH (09:36)
[2020-04-27] MEDS: NICOTINE 7 MG/24 HOURS TOPICAL PATCH TD SCH (09:36)
[2020-04-27] MEDS: HYDROCORTISONE 0.5% TOPICAL CREAM 30 GM TUBE TP SCH (09:36)
[2020-04-27] MEDS: hydrOXYzine PAMOATE 25 MG CAPSULE (FP) PO PRN (09:36)
[2020-04-27] MEDS: ESCITALOPRAM OXALATE 10 MG TABLET PO SCH (09:37)
[2020-04-27] MEDS: ARIPiprazole 5 MG TABLET PO SCH (09:37)
[2020-04-27] MEDS: ASPIRIN 81 MG CHEWABLE TABLETS PO SCH (09:37)
[2020-04-27] MEDS: TOLNAFTATE 1% POWDER 45 GM POW TP SCH (09:37)
[2020-04-27 09:39] VITALS: BP 120/84; PULSE 84
--- NOTE | 2020-04-27 10:38 | PN ---
S Progress Note Note: Patient discharged today, stable, no complaints, P/E unchanged from yesterday. VS stable.
== END 2020-04-27 09:47 | disposition home or self-care (01) | DRG 772 ==
LOC: YASAS 11:40 → Y3E 11:41 → Y3W 04-16 13:58
PROVIDERS: ADMIT Allergy & Immunology; ATTEND Allergy & Immunology
PROC: HZ42ZZZ Group Counseling for Substance Abuse Treatment, Cognitive-Behavioral (ICD-10-PCS; principal; 2020-04-12)
DX: F10.20 Alcohol dependence, uncomplicated (principal); F14.20 Cocaine dependence, uncomplicated; F12.20 Cannabis dependence, uncomplicated; F17.213 Nicotine dependence, cigarettes, with withdrawal; F32.9 Major depressive disorder, single episode, unspecified; I10 Essential (primary) hypertension; J45.20 Mild intermittent asthma, uncomplicated; Z91.19 Patient's noncompliance with other medical treatment and regimen; Z86.69 Personal history of other diseases of the nervous system and sense organs; Z59.0 Homelessness

== ENCOUNTER 2020-10-14 13:42 | Inpatient (IN) | payer OTHER ==
[2020-10-14 16:17] VITALS: BMI 23.6
[2020-10-14] MEDS ORDERED: BISMUTH SUBSALICYLATE 524 MG/30 ML UD PO PRN (17:12)
[2020-10-14] MEDS ORDERED: MAG HYDROX/AL HYDROX/SIMETH 30 ML UNIT-DOSE CUP PO PRN (17:12)
[2020-10-14] MEDS ORDERED: IBUPROFEN 400 MG TABLET (FP) PO PRN (17:12)
[2020-10-14] MEDS ORDERED: chlordiazePOXIDE HCL 25 MG CAPSULE PO PRN (17:12)
[2020-10-14] MEDS ORDERED: MAGNESIUM CITRATE 300 ML BOTTLE PO PRN (17:12)
[2020-10-14] MEDS ORDERED: MAGNESIUM HYDROX 2400MG/30ML ORAL SUSPENSION 30 ML CUP PO PRN (17:12)
[2020-10-14] MEDS ORDERED: ACETAMINOPHEN 325 MG TABLET (FP) PO PRN (17:12)
[2020-10-14] MEDS ORDERED: MENTHOL/PHENOL 1 EACH UD MM PRN (17:12)
[2020-10-14] MEDS ORDERED: guaiFENesin 200 MG/10 ML 10 ML UNIT-DOSE CUPS PO PRN (17:12)
[2020-10-14] MEDS ORDERED: ONDANSETRON *ODT* 4 MG TABLET SL PRN (17:12)
[2020-10-14] MEDS ORDERED: METHOCARBAMOL 500 MG TABLET PO PRN (17:12)
[2020-10-14] MEDS: chlordiazePOXIDE HCL 25 MG CAPSULE PO SCH (23:08)
[2020-10-14] MEDS: THIAMINE HCL 100 MG TABLET (FP) PO SCH (23:08)
[2020-10-15] MEDS: chlordiazePOXIDE HCL 25 MG CAPSULE PO SCH ×4 (07:10→22:07)
[2020-10-15] MEDS: ACETAMINOPHEN 325 MG TABLET (FP) PO PRN ×2 (09:33→17:27)
[2020-10-15] MEDS: ASPIRIN 81 MG CHEWABLE TABLETS PO SCH (10:22)
[2020-10-15] MEDS: amLODIPine BESYLATE 10 MG TABLET (FP) PO SCH (10:22)
[2020-10-15] MEDS: NICOTINE 14 MG/24 HOURS TOPICAL PATCH TD SCH (10:23)
[2020-10-15] MEDS: PRENATAL VITAMINS W/ FOLIC ACID TABLET (FP) PO SCH (10:23)
[2020-10-15 11:57] LABS: HEMATOCRIT 44.8 % (35.4-49); MCH 32.3 pg (25.7-33.7); MCHC 33.5 g/dl (32.0-35.9); MEAN CELL VOLUME 96.4 fl (80-96); MEAN PLT VOLUME 9.9 fl (7.5-11.1); PLATELET COUNT 269 K/MM3 (134-434); RBC 4.65 M/mm3 (4.00-5.60); RDW 13.8 % (11.9-15.9)
[2020-10-15 12:02] LABS: POTASSIUM 4.4 mmol/L (3.5-5.1)
[2020-10-15 12:10] LABS: ALBUMIN 3.7 g/dl (3.4-5.0); BLOOD UREA NITROGEN 13.1 mg/dL (7-18); CALCIUM 8.9 mg/dL (8.5-10.1)
[2020-10-15 12:13] LABS: CREATININE 0.8 mg/dL (0.55-1.3)
[2020-10-15 12:15] LABS: BILIRUBIN,TOTAL 1.7 mg/dL (0.2-1)
[2020-10-15] MEDS: ARIPiprazole 5 MG TABLET PO SCH (14:57)
[2020-10-15] MEDS: NICOTINE POLACRILEX 2 MG GUM BUC PRN (17:13)
[2020-10-15] MEDS ORDERED: COLLOIDAL OATMEAL 1 BAR EACH TP PRN (19:24)
[2020-10-15] MEDS ORDERED: traZODone HCL 150 MG TABLET PO SCH (22:00)
[2020-10-15] MEDS: MELATONIN 5 MG TABLETS PO PRN (22:05)
[2020-10-15] MEDS: THIAMINE HCL 100 MG TABLET (FP) PO SCH (22:05)
[2020-10-15] MEDS: traZODone HCL 100 MG TABLET (FP) PO SCH (22:57)
[2020-10-16] MEDS: chlordiazePOXIDE HCL 25 MG CAPSULE PO SCH ×4 (06:12→22:34)
[2020-10-16] MEDS: ALBUTEROL SO4 HFA INHALER IH PRN ×2 (06:15→10:28)
[2020-10-16] MEDS: amLODIPine BESYLATE 10 MG TABLET (FP) PO SCH (10:23)
[2020-10-16] MEDS: PRENATAL VITAMINS W/ FOLIC ACID TABLET (FP) PO SCH (10:23)
[2020-10-16] MEDS: NICOTINE 14 MG/24 HOURS TOPICAL PATCH TD SCH (10:23)
[2020-10-16] MEDS: ASPIRIN 81 MG CHEWABLE TABLETS PO SCH (10:23)
[2020-10-16] MEDS: ARIPiprazole 5 MG TABLET PO SCH (10:24)
[2020-10-16] MEDS: NICOTINE POLACRILEX 2 MG GUM BUC PRN ×2 (11:02→16:04)
[2020-10-16] MEDS: METHYL SALICYLATE/MENTHOL OINT 30 GM TUBE TP SCH ×2 (12:55→23:43)
[2020-10-16] MEDS: ACETAMINOPHEN 325 MG TABLET (FP) PO PRN (16:03)
[2020-10-16] MEDS: THIAMINE HCL 100 MG TABLET (FP) PO SCH (22:34)
[2020-10-16] MEDS: traZODone HCL 100 MG TABLET (FP) PO SCH (22:34)
[2020-10-17] MEDS ORDERED: chlordiazePOXIDE HCL 10 MG CAPSULE PO PRN
[2020-10-17] MEDS: chlordiazePOXIDE HCL 10 MG CAPSULE PO SCH ×4 (06:13→22:13)
[2020-10-17] MEDS: NICOTINE POLACRILEX 2 MG GUM BUC PRN ×2 (06:16→10:23)
[2020-10-17] MEDS: ALBUTEROL SO4 HFA INHALER IH PRN ×2 (06:16→10:23)
[2020-10-17] MEDS: ARIPiprazole 5 MG TABLET PO SCH (10:19)
[2020-10-17] MEDS: ASPIRIN 81 MG CHEWABLE TABLETS PO SCH (10:19)
[2020-10-17] MEDS: amLODIPine BESYLATE 10 MG TABLET (FP) PO SCH (10:21)
[2020-10-17] MEDS: NICOTINE 14 MG/24 HOURS TOPICAL PATCH TD SCH (10:22)
[2020-10-17] MEDS: PRENATAL VITAMINS W/ FOLIC ACID TABLET (FP) PO SCH (10:23)
[2020-10-17] MEDS: METHYL SALICYLATE/MENTHOL OINT 30 GM TUBE TP SCH ×2 (10:23→22:15)
[2020-10-17] MEDS: ACETAMINOPHEN 325 MG TABLET (FP) PO PRN (14:19)
[2020-10-17] MEDS: MELATONIN 5 MG TABLETS PO PRN (22:13)
[2020-10-17] MEDS: THIAMINE HCL 100 MG TABLET (FP) PO SCH (22:13)
[2020-10-17] MEDS: traZODone HCL 100 MG TABLET (FP) PO SCH (22:13)
[2020-10-18] MEDS: chlordiazePOXIDE HCL 10 MG CAPSULE PO SCH ×2 (05:34→17:02)
[2020-10-18] MEDS: ALBUTEROL SO4 HFA INHALER IH PRN ×2 (05:36→09:07)
[2020-10-18] MEDS: PRENATAL VITAMINS W/ FOLIC ACID TABLET (FP) PO SCH (10:15)
[2020-10-18] MEDS: ARIPiprazole 5 MG TABLET PO SCH (10:15)
[2020-10-18] MEDS: ASPIRIN 81 MG CHEWABLE TABLETS PO SCH (10:15)
[2020-10-18] MEDS: amLODIPine BESYLATE 10 MG TABLET (FP) PO SCH (10:15)
[2020-10-18] MEDS: NICOTINE 14 MG/24 HOURS TOPICAL PATCH TD SCH (10:15)
[2020-10-18] MEDS: METHYL SALICYLATE/MENTHOL OINT 30 GM TUBE TP SCH ×2 (10:16→22:11)
[2020-10-18] MEDS ORDERED: MASKS NR ONE (19:30)
[2020-10-18] MEDS: THIAMINE HCL 100 MG TABLET (FP) PO SCH (22:11)
[2020-10-18] MEDS: traZODone HCL 100 MG TABLET (FP) PO SCH (22:11)
[2020-10-19] MEDS ORDERED: chlordiazePOXIDE HCL 10 MG CAPSULE PO ONE (05:00)
[2020-10-19] MEDS: ALBUTEROL SO4 HFA INHALER IH PRN (05:55)
[2020-10-19] MEDS: ASPIRIN 81 MG CHEWABLE TABLETS PO SCH (09:07)
[2020-10-19] MEDS: amLODIPine BESYLATE 10 MG TABLET (FP) PO SCH (09:07)
[2020-10-19] MEDS: PRENATAL VITAMINS W/ FOLIC ACID TABLET (FP) PO SCH (09:07)
[2020-10-19] MEDS: ARIPiprazole 5 MG TABLET PO SCH (09:07)
[2020-10-19] MEDS: METHYL SALICYLATE/MENTHOL OINT 30 GM TUBE TP SCH (09:09)
[2020-10-19] MEDS: NICOTINE 14 MG/24 HOURS TOPICAL PATCH TD SCH (09:09)
[2020-10-19 09:17] VITALS: BP 135/90; PULSE 108; TEMP 97.3
== END 2020-10-19 10:15 | disposition home or self-care (01) | DRG 774 ==
LOC: YASAS 13:42 → Y3N 17:27
PROVIDERS: ADMIT Allergy & Immunology; ATTEND Allergy & Immunology
PROC: HZ2ZZZZ Detoxification Services for Substance Abuse Treatment (ICD-10-PCS; principal; 2020-10-14)
DX: F10.230 Alcohol dependence with withdrawal, uncomplicated (principal); F10.220 Alcohol dependence with intoxication, uncomplicated; F14.20 Cocaine dependence, uncomplicated; F12.20 Cannabis dependence, uncomplicated; F17.210 Nicotine dependence, cigarettes, uncomplicated; F10.24 Alcohol dependence with alcohol-induced mood disorder; F19.24 Other psychoactive substance dependence with psychoactive substance-induced mood disorder; F10.282 Alcohol dependence with alcohol-induced sleep disorder; F32.9 Major depressive disorder, single episode, unspecified; F43.10 Post-traumatic stress disorder, unspecified; I10 Essential (primary) hypertension; J45.20 Mild intermittent asthma, uncomplicated; M17.12 Unilateral primary osteoarthritis, left knee; M1A.0620 Idiopathic chronic gout, left knee, without tophus (tophi); B18.2 Chronic viral hepatitis C; K21.9 Gastro-esophageal reflux disease without esophagitis; R56.9 Unspecified convulsions; R73.9 Hyperglycemia, unspecified; E80.6 Other disorders of bilirubin metabolism; Z86.69 Personal history of other diseases of the nervous system and sense organs; Z59.0 Homelessness; Z91.013 Allergy to seafood; Z91.018 Allergy to other foods
CPT/HCPCS: 36415; 80053; 85027; 86780; 93005; 93010; C9803; U0003

== ENCOUNTER 2020-11-24 12:26 | Inpatient (IN) | payer OTHER ==
[2020-11-24 13:56] VITALS: BMI 22.8
[2020-11-24] MEDS ORDERED: ONDANSETRON *ODT* 4 MG TABLET SL PRN (15:22)
[2020-11-24] MEDS ORDERED: ACETAMINOPHEN 325 MG TABLET (FP) PO PRN ×2 (15:22)
[2020-11-24] MEDS ORDERED: IBUPROFEN 400 MG TABLET (FP) PO PRN (15:22)
[2020-11-24] MEDS ORDERED: MAGNESIUM CITRATE 300 ML BOTTLE PO PRN (15:22)
[2020-11-24] MEDS ORDERED: MENTHOL/PHENOL 1 EACH UD MM PRN (15:22)
[2020-11-24] MEDS ORDERED: NICOTINE POLACRILEX 2 MG GUM BUC PRN (15:22)
[2020-11-24] MEDS ORDERED: METHOCARBAMOL 500 MG TABLET PO PRN (15:22)
[2020-11-24] MEDS ORDERED: chlordiazePOXIDE HCL 25 MG CAPSULE PO PRN (15:22)
[2020-11-24] MEDS ORDERED: MAGNESIUM HYDROX 2400MG/30ML ORAL SUSPENSION 30 ML CUP PO PRN (15:22)
[2020-11-24] MEDS ORDERED: MAG HYDROX/AL HYDROX/SIMETH 30 ML UNIT-DOSE CUP PO PRN (15:22)
[2020-11-24] MEDS ORDERED: BISMUTH SUBSALICYLATE 262 MG/15 ML BTL PO PRN (15:22)
[2020-11-24] MEDS: PRENATAL VITAMINS W/ FOLIC ACID TABLET (FP) PO SCH (15:54)
[2020-11-24] MEDS: NICOTINE 21 MG/24 HOURS TOPICAL PATCH TD SCH (15:54)
[2020-11-24 16:27] LABS: HEMATOCRIT 42.1 % (35.4-49); HEMOGLOBIN 13.9 GM/dL (11.7-16.9); MCH 32.5 pg (25.7-33.7); MEAN CELL VOLUME 98.6 fl (80-96); MEAN PLT VOLUME 10.6 fl (7.5-11.1); PLATELET COUNT 198 K/MM3 (134-434); RBC 4.27 M/mm3 (4.00-5.60); RDW 14.5 % (11.9-15.9); WHITE BLOOD COUNT 7.2 K/mm3 (4.0-10.0)
[2020-11-24 16:37] LABS: CALCIUM 9.2 mg/dL (8.5-10.1)
[2020-11-24 16:38] LABS: ALBUMIN 3.9 g/dl (3.4-5.0); BLOOD UREA NITROGEN 8.9 mg/dL (7-18)
[2020-11-24 16:41] LABS: CREATININE 0.8 mg/dL (0.55-1.3)
[2020-11-24 16:43] LABS: BILIRUBIN,TOTAL 1.7 mg/dL (0.2-1); TOT PROT 7.2 g/dl (6.4-8.2)
[2020-11-24] MEDS: chlordiazePOXIDE HCL 25 MG CAPSULE PO SCH ×2 (18:02→22:28)
[2020-11-24] MEDS: hydrOXYzine PAMOATE 25 MG CAPSULE (FP) PO SCH ×2 (18:36→22:29)
[2020-11-24] MEDS: THIAMINE HCL 100 MG TABLET (FP) PO SCH (22:29)
[2020-11-24] MEDS: MELATONIN 5 MG TABLETS PO SCH (22:29)
[2020-11-25] MEDS: chlordiazePOXIDE HCL 25 MG CAPSULE PO SCH ×4 (06:26→22:31)
[2020-11-25] MEDS: hydrOXYzine PAMOATE 25 MG CAPSULE (FP) PO SCH ×5 (06:27→22:32)
[2020-11-25] MEDS: PRENATAL VITAMINS W/ FOLIC ACID TABLET (FP) PO SCH (10:37)
[2020-11-25] MEDS: ARIPiprazole 5 MG TABLET PO SCH (10:37)
[2020-11-25] MEDS: NICOTINE 21 MG/24 HOURS TOPICAL PATCH TD SCH (10:38)
[2020-11-25] MEDS: traZODone HCL 50 MG TABLET (FP) PO SCH (22:32)
[2020-11-25] MEDS: THIAMINE HCL 100 MG TABLET (FP) PO SCH (22:32)
[2020-11-25] MEDS: MELATONIN 5 MG TABLETS PO SCH (22:32)
[2020-11-26] MEDS: hydrOXYzine PAMOATE 25 MG CAPSULE (FP) PO SCH ×6 (05:34→22:52)
[2020-11-26] MEDS: chlordiazePOXIDE HCL 25 MG CAPSULE PO SCH ×4 (05:34→22:52)
[2020-11-26] MEDS: ARIPiprazole 5 MG TABLET PO SCH (10:29)
[2020-11-26] MEDS: PRENATAL VITAMINS W/ FOLIC ACID TABLET (FP) PO SCH (10:29)
[2020-11-26] MEDS: NICOTINE 21 MG/24 HOURS TOPICAL PATCH TD SCH (10:30)
[2020-11-26] MEDS: ASPIRIN 81 MG CHEWABLE TABLETS PO SCH (12:27)
[2020-11-26] MEDS: METHYL SALICYLATE/MENTHOL OINT 30 GM TUBE TP SCH ×2 (13:03→22:51)
[2020-11-26] MEDS: MELATONIN 5 MG TABLETS PO SCH (22:51)
[2020-11-26] MEDS: THIAMINE HCL 100 MG TABLET (FP) PO SCH (22:51)
[2020-11-26] MEDS: traZODone HCL 50 MG TABLET (FP) PO SCH (22:52)
[2020-11-27] MEDS ORDERED: chlordiazePOXIDE HCL 10 MG CAPSULE PO PRN
[2020-11-27] MEDS: hydrOXYzine PAMOATE 25 MG CAPSULE (FP) PO SCH ×5 (06:49→23:41)
[2020-11-27] MEDS: chlordiazePOXIDE HCL 10 MG CAPSULE PO SCH ×4 (06:49→22:28)
[2020-11-27] MEDS: ASPIRIN 81 MG CHEWABLE TABLETS PO SCH (10:32)
[2020-11-27] MEDS: ARIPiprazole 5 MG TABLET PO SCH (10:32)
[2020-11-27] MEDS: PRENATAL VITAMINS W/ FOLIC ACID TABLET (FP) PO SCH (10:32)
[2020-11-27] MEDS: METHYL SALICYLATE/MENTHOL OINT 30 GM TUBE TP SCH ×2 (10:35→23:40)
[2020-11-27] MEDS: NICOTINE 21 MG/24 HOURS TOPICAL PATCH TD SCH (10:35)
[2020-11-27] MEDS ORDERED: COLLOIDAL OATMEAL 1 BAR EACH TP PRN (16:31)
[2020-11-27] MEDS: traZODone HCL 50 MG TABLET (FP) PO SCH (22:28)
[2020-11-27] MEDS: THIAMINE HCL 100 MG TABLET (FP) PO SCH (22:28)
[2020-11-27] MEDS: MELATONIN 5 MG TABLETS PO SCH (22:30)
[2020-11-28] MEDS: hydrOXYzine PAMOATE 25 MG CAPSULE (FP) PO SCH ×3 (06:24→18:09)
[2020-11-28] MEDS: chlordiazePOXIDE HCL 10 MG CAPSULE PO SCH ×2 (06:27→18:09)
[2020-11-28] MEDS ORDERED: ALBUTEROL SO4 HFA INHALER IH PRN (09:07)
[2020-11-28] MEDS: amLODIPine BESYLATE 10 MG TABLET (FP) PO SCH (10:55)
[2020-11-28] MEDS: ASPIRIN 81 MG CHEWABLE TABLETS PO SCH ×2 (10:55→10:58)
[2020-11-28] MEDS: ARIPiprazole 5 MG TABLET PO SCH (10:55)
[2020-11-28] MEDS: NICOTINE 21 MG/24 HOURS TOPICAL PATCH TD SCH (10:56)
[2020-11-28] MEDS: METHYL SALICYLATE/MENTHOL OINT 30 GM TUBE TP SCH ×2 (10:58→22:05)
[2020-11-28] MEDS: PRENATAL VITAMINS W/ FOLIC ACID TABLET (FP) PO SCH (10:58)
[2020-11-28] MEDS: traZODone HCL 50 MG TABLET (FP) PO SCH (22:03)
[2020-11-28] MEDS: THIAMINE HCL 100 MG TABLET (FP) PO SCH (22:03)
[2020-11-28] MEDS: MELATONIN 5 MG TABLETS PO SCH (23:18)
[2020-11-29] MEDS ORDERED: chlordiazePOXIDE HCL 10 MG CAPSULE PO ONE (05:00)
[2020-11-29 09:20] VITALS: BP 140/90; PULSE 98; TEMP 97.1
[2020-11-29] MEDS: NICOTINE 21 MG/24 HOURS TOPICAL PATCH TD SCH (10:48)
[2020-11-29] MEDS: METHYL SALICYLATE/MENTHOL OINT 30 GM TUBE TP SCH (10:48)
[2020-11-29] MEDS: ASPIRIN 81 MG CHEWABLE TABLETS PO SCH ×2 (10:48→10:49)
[2020-11-29] MEDS: ARIPiprazole 5 MG TABLET PO SCH (10:49)
[2020-11-29] MEDS: amLODIPine BESYLATE 10 MG TABLET (FP) PO SCH (10:49)
[2020-11-29] MEDS: PRENATAL VITAMINS W/ FOLIC ACID TABLET (FP) PO SCH (10:49)
== END 2020-11-29 12:40 | disposition other institution (70) | DRG 775 ==
LOC: YASAS 12:26 → Y6N 14:28
PROVIDERS: ADMIT Allergy & Immunology; ATTEND Allergy & Immunology
PROC: HZ2ZZZZ Detoxification Services for Substance Abuse Treatment (ICD-10-PCS; principal; 2020-11-24)
DX: F10.230 Alcohol dependence with withdrawal, uncomplicated (principal); F12.20 Cannabis dependence, uncomplicated; F17.210 Nicotine dependence, cigarettes, uncomplicated; F33.1 Major depressive disorder, recurrent, moderate; F10.24 Alcohol dependence with alcohol-induced mood disorder; F19.24 Other psychoactive substance dependence with psychoactive substance-induced mood disorder; F10.282 Alcohol dependence with alcohol-induced sleep disorder; F43.10 Post-traumatic stress disorder, unspecified; I10 Essential (primary) hypertension; J45.20 Mild intermittent asthma, uncomplicated; K21.9 Gastro-esophageal reflux disease without esophagitis; E80.6 Other disorders of bilirubin metabolism; B18.2 Chronic viral hepatitis C; M17.11 Unilateral primary osteoarthritis, right knee; M1A.0620 Idiopathic chronic gout, left knee, without tophus (tophi); R56.9 Unspecified convulsions; Z56.0 Unemployment, unspecified; Z59.0 Homelessness; Z91.013 Allergy to seafood; Z91.018 Allergy to other foods
CPT/HCPCS: 36415; 80053; 85027; 86780; C9803; U0003

== ENCOUNTER 2020-11-29 12:50 | Inpatient (IN) | payer OTHER ==
[2020-11-29] MEDS ORDERED: MAGNESIUM CITRATE 300 ML BOTTLE PO PRN (13:35)
[2020-11-29] MEDS ORDERED: ACETAMINOPHEN 325 MG TABLET (FP) PO PRN (13:35)
[2020-11-29] MEDS ORDERED: LOPERAMIDE HCL 2 MG CAPSULE PO PRN (13:35)
[2020-11-29] MEDS ORDERED: MAG HYDROX/AL HYDROX/SIMETH 30 ML UNIT-DOSE CUP PO PRN (13:35)
[2020-11-29] MEDS ORDERED: MAGNESIUM HYDROX 2400MG/30ML ORAL SUSPENSION 30 ML CUP PO PRN (13:35)
[2020-11-29] MEDS ORDERED: guaiFENesin 200 MG/10 ML 10 ML UNIT-DOSE CUPS PO PRN (13:35)
[2020-11-29] MEDS ORDERED: NICOTINE POLACRILEX 2 MG GUM BUC PRN (13:35)
[2020-11-29] MEDS ORDERED: MENTHOL/PHENOL 1 EACH UD MM PRN (13:35)
[2020-11-29] MEDS ORDERED: P-EPHED 60MG/TRIPROLIDI 2.5MG TABLET PO PRN (13:35)
[2020-11-29] MEDS ORDERED: IBUPROFEN 400 MG TABLET (FP) PO PRN (13:35)
[2020-11-29] MEDS ORDERED: ALBUTEROL SO4 HFA INHALER IH PRN (15:18)
[2020-11-29] MEDS: THIAMINE HCL 100 MG TABLET (FP) PO SCH (21:35)
[2020-11-29] MEDS: traZODone HCL 100 MG TABLET (FP) PO SCH (21:35)
[2020-11-29] MEDS: MELATONIN 5 MG TABLETS PO SCH (21:35)
[2020-11-30] MEDS: ASPIRIN 81 MG CHEWABLE TABLETS PO SCH (10:30)
[2020-11-30] MEDS: PRENATAL VITAMINS W/ FOLIC ACID TABLET (FP) PO SCH (10:30)
[2020-11-30] MEDS: ARIPiprazole 5 MG TABLET PO SCH (10:31)
[2020-11-30] MEDS: amLODIPine BESYLATE 10 MG TABLET (FP) PO SCH (10:31)
[2020-11-30] MEDS: NICOTINE 7 MG/24 HOURS TOPICAL PATCH TD SCH (10:31)
[2020-11-30] MEDS: traZODone HCL 100 MG TABLET (FP) PO SCH (21:05)
[2020-11-30] MEDS: MELATONIN 5 MG TABLETS PO SCH (21:05)
[2020-11-30] MEDS: THIAMINE HCL 100 MG TABLET (FP) PO SCH (21:05)
[2020-12-01] MEDS: amLODIPine BESYLATE 10 MG TABLET (FP) PO SCH (10:25)
[2020-12-01] MEDS: ARIPiprazole 5 MG TABLET PO SCH (10:25)
[2020-12-01] MEDS: ASPIRIN 81 MG CHEWABLE TABLETS PO SCH (10:25)
[2020-12-01] MEDS: NICOTINE 7 MG/24 HOURS TOPICAL PATCH TD SCH (10:26)
[2020-12-01] MEDS: PRENATAL VITAMINS W/ FOLIC ACID TABLET (FP) PO SCH (10:26)
[2020-12-01] MEDS: MELATONIN 5 MG TABLETS PO SCH (21:29)
[2020-12-01] MEDS: THIAMINE HCL 100 MG TABLET (FP) PO SCH (21:29)
[2020-12-01] MEDS: traZODone HCL 100 MG TABLET (FP) PO SCH (21:29)
[2020-12-02] MEDS: ARIPiprazole 5 MG TABLET PO SCH (09:57)
[2020-12-02] MEDS: ASPIRIN 81 MG CHEWABLE TABLETS PO SCH (09:57)
[2020-12-02] MEDS: NICOTINE 7 MG/24 HOURS TOPICAL PATCH TD SCH (09:58)
[2020-12-02] MEDS: PRENATAL VITAMINS W/ FOLIC ACID TABLET (FP) PO SCH (09:58)
[2020-12-02] MEDS: amLODIPine BESYLATE 10 MG TABLET (FP) PO SCH (09:59)
[2020-12-02] MEDS: THIAMINE HCL 100 MG TABLET (FP) PO SCH (21:04)
[2020-12-02] MEDS: MELATONIN 5 MG TABLETS PO SCH (21:04)
[2020-12-02] MEDS: traZODone HCL 100 MG TABLET (FP) PO SCH (21:04)
[2020-12-03] MEDS: ASPIRIN 81 MG CHEWABLE TABLETS PO SCH (10:14)
[2020-12-03] MEDS: amLODIPine BESYLATE 10 MG TABLET (FP) PO SCH (10:14)
[2020-12-03] MEDS: PRENATAL VITAMINS W/ FOLIC ACID TABLET (FP) PO SCH (10:15)
[2020-12-03] MEDS: NICOTINE 7 MG/24 HOURS TOPICAL PATCH TD SCH (10:15)
[2020-12-03] MEDS: ARIPiprazole 5 MG TABLET PO SCH (10:15)
[2020-12-03] MEDS: MELATONIN 5 MG TABLETS PO SCH (22:04)
[2020-12-03] MEDS: traZODone HCL 100 MG TABLET (FP) PO SCH (22:04)
[2020-12-03] MEDS: THIAMINE HCL 100 MG TABLET (FP) PO SCH (22:04)
[2020-12-04] MEDS: ASPIRIN 81 MG CHEWABLE TABLETS PO SCH (09:57)
[2020-12-04] MEDS: amLODIPine BESYLATE 10 MG TABLET (FP) PO SCH (09:57)
[2020-12-04] MEDS: NICOTINE 7 MG/24 HOURS TOPICAL PATCH TD SCH (09:57)
[2020-12-04] MEDS: PRENATAL VITAMINS W/ FOLIC ACID TABLET (FP) PO SCH (09:58)
[2020-12-04] MEDS: ARIPiprazole 5 MG TABLET PO SCH (09:58)
[2020-12-04] MEDS: MELATONIN 5 MG TABLETS PO SCH (21:29)
[2020-12-04] MEDS: traZODone HCL 100 MG TABLET (FP) PO SCH (21:29)
[2020-12-04] MEDS: THIAMINE HCL 100 MG TABLET (FP) PO SCH (21:30)
[2020-12-05] MEDS ORDERED: PT OWN MED DRAWER 7, Y5N ONE (09:14)
[2020-12-05] MEDS: ASPIRIN 81 MG CHEWABLE TABLETS PO SCH (09:35)
[2020-12-05] MEDS: ARIPiprazole 5 MG TABLET PO SCH (09:35)
[2020-12-05] MEDS: amLODIPine BESYLATE 10 MG TABLET (FP) PO SCH (09:35)
[2020-12-05] MEDS: NICOTINE 7 MG/24 HOURS TOPICAL PATCH TD SCH (09:36)
[2020-12-05] MEDS: PRENATAL VITAMINS W/ FOLIC ACID TABLET (FP) PO SCH (09:36)
[2020-12-05] MEDS: MELATONIN 5 MG TABLETS PO SCH (21:36)
[2020-12-05] MEDS: THIAMINE HCL 100 MG TABLET (FP) PO SCH (21:36)
[2020-12-05] MEDS: traZODone HCL 100 MG TABLET (FP) PO SCH (21:36)
[2020-12-06] MEDS: NICOTINE 7 MG/24 HOURS TOPICAL PATCH TD SCH (10:08)
[2020-12-06] MEDS: amLODIPine BESYLATE 10 MG TABLET (FP) PO SCH (10:09)
[2020-12-06] MEDS: ASPIRIN 81 MG CHEWABLE TABLETS PO SCH (10:09)
[2020-12-06] MEDS: ARIPiprazole 5 MG TABLET PO SCH (10:11)
[2020-12-06] MEDS ORDERED: PT OWN MED DRAWER 7, Y5N ONE ×2 (10:11→10:21)
[2020-12-06] MEDS: PRENATAL VITAMINS W/ FOLIC ACID TABLET (FP) PO SCH (11:44)
[2020-12-06] MEDS: MELATONIN 5 MG TABLETS PO SCH (21:25)
[2020-12-06] MEDS: THIAMINE HCL 100 MG TABLET (FP) PO SCH (21:25)
[2020-12-06] MEDS: traZODone HCL 100 MG TABLET (FP) PO SCH (21:25)
[2020-12-07] MEDS: NICOTINE 7 MG/24 HOURS TOPICAL PATCH TD SCH (10:33)
[2020-12-07] MEDS: ASPIRIN 81 MG CHEWABLE TABLETS PO SCH (10:34)
[2020-12-07] MEDS: amLODIPine BESYLATE 10 MG TABLET (FP) PO SCH (10:34)
[2020-12-07] MEDS: ARIPiprazole 5 MG TABLET PO SCH (10:34)
[2020-12-07] MEDS: PRENATAL VITAMINS W/ FOLIC ACID TABLET (FP) PO SCH (10:34)
[2020-12-07] MEDS: THIAMINE HCL 100 MG TABLET (FP) PO SCH (21:11)
[2020-12-07] MEDS: MELATONIN 5 MG TABLETS PO SCH (21:11)
[2020-12-07] MEDS: traZODone HCL 100 MG TABLET (FP) PO SCH (21:11)
[2020-12-08] MEDS: amLODIPine BESYLATE 10 MG TABLET (FP) PO SCH (10:14)
[2020-12-08] MEDS: ARIPiprazole 5 MG TABLET PO SCH (10:14)
[2020-12-08] MEDS: ASPIRIN 81 MG CHEWABLE TABLETS PO SCH (10:14)
[2020-12-08] MEDS: NICOTINE 7 MG/24 HOURS TOPICAL PATCH TD SCH (10:15)
[2020-12-08] MEDS: PRENATAL VITAMINS W/ FOLIC ACID TABLET (FP) PO SCH (10:15)
[2020-12-08] MEDS: THIAMINE HCL 100 MG TABLET (FP) PO SCH (21:24)
[2020-12-08] MEDS: traZODone HCL 100 MG TABLET (FP) PO SCH (21:24)
[2020-12-08] MEDS: MELATONIN 5 MG TABLETS PO SCH (21:24)
[2020-12-09] MEDS: ASPIRIN 81 MG CHEWABLE TABLETS PO SCH (10:08)
[2020-12-09] MEDS: ARIPiprazole 5 MG TABLET PO SCH (10:08)
[2020-12-09] MEDS: amLODIPine BESYLATE 10 MG TABLET (FP) PO SCH (10:08)
[2020-12-09] MEDS: PRENATAL VITAMINS W/ FOLIC ACID TABLET (FP) PO SCH (10:09)
[2020-12-09] MEDS: NICOTINE 7 MG/24 HOURS TOPICAL PATCH TD SCH (10:09)
[2020-12-09] MEDS: traZODone HCL 100 MG TABLET (FP) PO SCH (21:23)
[2020-12-09] MEDS: THIAMINE HCL 100 MG TABLET (FP) PO SCH (21:23)
[2020-12-09] MEDS: hydrOXYzine PAMOATE 25 MG CAPSULE (FP) PO PRN (21:23)
[2020-12-09] MEDS: MELATONIN 5 MG TABLETS PO SCH (21:25)
[2020-12-10] MEDS: ASPIRIN 81 MG CHEWABLE TABLETS PO SCH (09:49)
[2020-12-10] MEDS: PRENATAL VITAMINS W/ FOLIC ACID TABLET (FP) PO SCH (09:49)
[2020-12-10] MEDS: ARIPiprazole 5 MG TABLET PO SCH (09:49)
[2020-12-10] MEDS: amLODIPine BESYLATE 10 MG TABLET (FP) PO SCH (09:49)
[2020-12-10] MEDS: NICOTINE 7 MG/24 HOURS TOPICAL PATCH TD SCH (09:49)
[2020-12-10] MEDS: THIAMINE HCL 100 MG TABLET (FP) PO SCH (21:22)
[2020-12-10] MEDS: MELATONIN 5 MG TABLETS PO SCH (21:22)
[2020-12-10] MEDS: traZODone HCL 100 MG TABLET (FP) PO SCH (21:23)
[2020-12-11] MEDS: NICOTINE 7 MG/24 HOURS TOPICAL PATCH TD SCH (10:04)
[2020-12-11] MEDS: PRENATAL VITAMINS W/ FOLIC ACID TABLET (FP) PO SCH (10:04)
[2020-12-11] MEDS: ASPIRIN 81 MG CHEWABLE TABLETS PO SCH (10:04)
[2020-12-11] MEDS: ARIPiprazole 5 MG TABLET PO SCH (10:04)
[2020-12-11] MEDS: amLODIPine BESYLATE 10 MG TABLET (FP) PO SCH (10:04)
[2020-12-11] MEDS: hydrOXYzine PAMOATE 25 MG CAPSULE (FP) PO PRN (10:04)
[2020-12-11] MEDS: traZODone HCL 100 MG TABLET (FP) PO SCH (22:10)
[2020-12-11] MEDS: THIAMINE HCL 100 MG TABLET (FP) PO SCH (22:11)
[2020-12-11] MEDS: MELATONIN 5 MG TABLETS PO SCH (22:11)
[2020-12-12] MEDS: hydrOXYzine PAMOATE 25 MG CAPSULE (FP) PO PRN (10:04)
[2020-12-12] MEDS: amLODIPine BESYLATE 10 MG TABLET (FP) PO SCH (10:04)
[2020-12-12] MEDS: ARIPiprazole 5 MG TABLET PO SCH (10:04)
[2020-12-12] MEDS: ASPIRIN 81 MG CHEWABLE TABLETS PO SCH (10:04)
[2020-12-12] MEDS: PRENATAL VITAMINS W/ FOLIC ACID TABLET (FP) PO SCH (10:06)
[2020-12-12] MEDS: NICOTINE 7 MG/24 HOURS TOPICAL PATCH TD SCH (10:06)
[2020-12-12] MEDS: MELATONIN 5 MG TABLETS PO SCH (21:21)
[2020-12-12] MEDS: traZODone HCL 100 MG TABLET (FP) PO SCH (21:21)
[2020-12-12] MEDS: THIAMINE HCL 100 MG TABLET (FP) PO SCH (21:21)
[2020-12-13] MEDS: ASPIRIN 81 MG CHEWABLE TABLETS PO SCH (09:55)
[2020-12-13] MEDS: NICOTINE 7 MG/24 HOURS TOPICAL PATCH TD SCH (09:55)
[2020-12-13] MEDS: ARIPiprazole 5 MG TABLET PO SCH (09:55)
[2020-12-13] MEDS: PRENATAL VITAMINS W/ FOLIC ACID TABLET (FP) PO SCH (09:56)
[2020-12-13] MEDS: amLODIPine BESYLATE 10 MG TABLET (FP) PO SCH (09:56)
[2020-12-13] MEDS: THIAMINE HCL 100 MG TABLET (FP) PO SCH (21:22)
[2020-12-13] MEDS: MELATONIN 5 MG TABLETS PO SCH (21:22)
[2020-12-13] MEDS: traZODone HCL 100 MG TABLET (FP) PO SCH (21:22)
[2020-12-14 07:08] VITALS: TEMP 97.3
[2020-12-14] MEDS: NICOTINE 7 MG/24 HOURS TOPICAL PATCH TD SCH (09:00)
[2020-12-14] MEDS: amLODIPine BESYLATE 10 MG TABLET (FP) PO SCH (09:01)
[2020-12-14] MEDS: ASPIRIN 81 MG CHEWABLE TABLETS PO SCH (09:01)
[2020-12-14] MEDS: ARIPiprazole 5 MG TABLET PO SCH (09:01)
[2020-12-14] MEDS: PRENATAL VITAMINS W/ FOLIC ACID TABLET (FP) PO SCH (09:02)
[2020-12-14 10:21] VITALS: BP 103/62; PULSE 88
== END 2020-12-14 09:16 | disposition home or self-care (01) | DRG 772 ==
LOC: YASAS 12:50 → Y3E 12:52
PROVIDERS: ADMIT Allergy & Immunology; ATTEND Allergy & Immunology
PROC: HZ42ZZZ Group Counseling for Substance Abuse Treatment, Cognitive-Behavioral (ICD-10-PCS; principal; 2020-11-29)
DX: F10.20 Alcohol dependence, uncomplicated (principal); F14.20 Cocaine dependence, uncomplicated; F12.20 Cannabis dependence, uncomplicated; F17.210 Nicotine dependence, cigarettes, uncomplicated; F33.1 Major depressive disorder, recurrent, moderate; F43.10 Post-traumatic stress disorder, unspecified; I10 Essential (primary) hypertension; J45.909 Unspecified asthma, uncomplicated; K21.9 Gastro-esophageal reflux disease without esophagitis; M10.9 Gout, unspecified; M17.12 Unilateral primary osteoarthritis, left knee; B19.20 Unspecified viral hepatitis C without hepatic coma; Z56.0 Unemployment, unspecified; Z59.0 Homelessness
CPT/HCPCS: C9803; U0003

== ENCOUNTER 2021-01-17 15:11 | Inpatient (IN) | payer OTHER ==
[2021-01-17 16:05] VITALS: BMI 23.2
[2021-01-17] MEDS ORDERED: MENTHOL/PHENOL 1 EACH UD MM PRN (17:52)
[2021-01-17] MEDS ORDERED: MAG HYDROX/AL HYDROX/SIMETH 30 ML UNIT-DOSE CUP PO PRN (17:52)
[2021-01-17] MEDS ORDERED: BISMUTH SUBSALICYLATE 524 MG/30 ML UD PO PRN (17:52)
[2021-01-17] MEDS ORDERED: chlordiazePOXIDE HCL 25 MG CAPSULE PO PRN (17:52)
[2021-01-17] MEDS ORDERED: MAGNESIUM CITRATE 300 ML BOTTLE PO PRN (17:52)
[2021-01-17] MEDS ORDERED: IBUPROFEN 400 MG TABLET (FP) PO PRN (17:52)
[2021-01-17] MEDS ORDERED: ACETAMINOPHEN 325 MG TABLET (FP) PO PRN ×2 (17:52)
[2021-01-17] MEDS ORDERED: ONDANSETRON *ODT* 4 MG TABLET SL PRN (17:52)
[2021-01-17] MEDS ORDERED: METHOCARBAMOL 500 MG TABLET PO PRN (17:52)
[2021-01-17] MEDS ORDERED: MAGNESIUM HYDROX 2400MG/30ML ORAL SUSPENSION 30 ML CUP PO PRN (17:52)
[2021-01-17] MEDS: chlordiazePOXIDE HCL 25 MG CAPSULE PO SCH (22:48)
[2021-01-17] MEDS: THIAMINE HCL 100 MG TABLET (FP) PO SCH (22:48)
[2021-01-17] MEDS: MELATONIN 5 MG TABLETS PO SCH (22:51)
[2021-01-17] MEDS: CALCIUM ACETATE/AL SULFATE TOP 1.9 GM/PACKET PACKET TP SCH (22:55)
[2021-01-18] MEDS: chlordiazePOXIDE HCL 25 MG CAPSULE PO SCH ×4 (05:23→22:22)
[2021-01-18] MEDS: CALCIUM ACETATE/AL SULFATE TOP 1.9 GM/PACKET PACKET TP SCH ×2 (10:00→22:21)
[2021-01-18] MEDS: PRENATAL VITAMINS W/ FOLIC ACID TABLET (FP) PO SCH (10:25)
[2021-01-18 11:00] LABS: HEMATOCRIT 44.4 % (35.4-49); HEMOGLOBIN 14.8 GM/dL (11.7-16.9); MCHC 33.4 g/dl (32.0-35.9); MEAN CELL VOLUME 98.9 fl (80-96); MEAN PLT VOLUME 10.4 fl (7.5-11.1); PLATELET COUNT 195 K/MM3 (134-434); RBC 4.49 M/mm3 (4.00-5.60); RDW 13.9 % (11.9-15.9); WHITE BLOOD COUNT 7.8 K/mm3 (4.0-10.0)
[2021-01-18 11:03] LABS: BLOOD UREA NITROGEN 7.7 mg/dL (7-18); CALCIUM 8.7 mg/dL (8.5-10.1)
[2021-01-18 11:04] LABS: ALBUMIN 3.5 g/dl (3.4-5.0)
[2021-01-18 11:06] LABS: CREATININE 0.7 mg/dL (0.55-1.3)
[2021-01-18 11:08] LABS: BILIRUBIN,TOTAL 3.1 mg/dL (0.2-1); TOT PROT 6.6 g/dl (6.4-8.2)
[2021-01-18] MEDS: ARIPiprazole 10 MG TABLET PO SCH (12:16)
[2021-01-18] MEDS: amLODIPine BESYLATE 10 MG TABLET (FP) PO SCH (14:31)
[2021-01-18] MEDS: hydrOXYzine PAMOATE 25 MG CAPSULE (FP) PO PRN ×2 (14:31→17:21)
[2021-01-18] MEDS: THIAMINE HCL 100 MG TABLET (FP) PO SCH (22:20)
[2021-01-18] MEDS: traZODone HCL 100 MG TABLET (FP) PO SCH (22:20)
[2021-01-18] MEDS: MELATONIN 5 MG TABLETS PO SCH (22:22)
[2021-01-19] MEDS: chlordiazePOXIDE HCL 25 MG CAPSULE PO SCH ×4 (05:59→22:17)
[2021-01-19] MEDS: PRENATAL VITAMINS W/ FOLIC ACID TABLET (FP) PO SCH (10:30)
[2021-01-19] MEDS: ARIPiprazole 10 MG TABLET PO SCH (10:30)
[2021-01-19] MEDS: amLODIPine BESYLATE 10 MG TABLET (FP) PO SCH (10:30)
[2021-01-19] MEDS: CALCIUM ACETATE/AL SULFATE TOP 1.9 GM/PACKET PACKET TP SCH ×3 (10:31→22:18)
[2021-01-19] MEDS: MELATONIN 5 MG TABLETS PO SCH (22:18)
[2021-01-19] MEDS: THIAMINE HCL 100 MG TABLET (FP) PO SCH (22:18)
[2021-01-19] MEDS: traZODone HCL 100 MG TABLET (FP) PO SCH (22:18)
[2021-01-20] MEDS ORDERED: chlordiazePOXIDE HCL 10 MG CAPSULE PO PRN
[2021-01-20] MEDS: chlordiazePOXIDE HCL 10 MG CAPSULE PO SCH ×4 (05:45→22:20)
[2021-01-20 10:28] LABS: BILIRUBIN,DIRECT 0.2 mg/dL (0.0-0.2)
[2021-01-20 10:30] LABS: BILIRUBIN,TOTAL 0.4 mg/dL (0.2-1); TOT PROT 5.7 g/dl (6.4-8.2)
[2021-01-20] MEDS ORDERED: COLLOIDAL OATMEAL 1 BAR EACH TP PRN (11:18)
[2021-01-20] MEDS: amLODIPine BESYLATE 10 MG TABLET (FP) PO SCH (11:41)
[2021-01-20] MEDS: ARIPiprazole 10 MG TABLET PO SCH (11:41)
[2021-01-20] MEDS: PRENATAL VITAMINS W/ FOLIC ACID TABLET (FP) PO SCH (11:42)
[2021-01-20] MEDS: CALCIUM ACETATE/AL SULFATE TOP 1.9 GM/PACKET PACKET TP SCH ×2 (11:42→22:20)
[2021-01-20] MEDS: ALBUTEROL SO4 HFA INHALER IH PRN (12:21)
[2021-01-20] MEDS: traZODone HCL 100 MG TABLET (FP) PO SCH (22:19)
[2021-01-20] MEDS: THIAMINE HCL 100 MG TABLET (FP) PO SCH (22:19)
[2021-01-20] MEDS: MELATONIN 5 MG TABLETS PO SCH (22:20)
[2021-01-20] MEDS: hydrOXYzine PAMOATE 25 MG CAPSULE (FP) PO PRN (22:54)
[2021-01-21] MEDS: chlordiazePOXIDE HCL 10 MG CAPSULE PO SCH ×2 (05:57→17:58)
[2021-01-21 06:06] LABS: SARS-CoV-2 NAA Not Detected (Not Detected)
[2021-01-21] MEDS: PRENATAL VITAMINS W/ FOLIC ACID TABLET (FP) PO SCH (10:08)
[2021-01-21] MEDS: amLODIPine BESYLATE 10 MG TABLET (FP) PO SCH (10:08)
[2021-01-21] MEDS: ARIPiprazole 10 MG TABLET PO SCH (10:08)
[2021-01-21] MEDS: ALBUTEROL SO4 HFA INHALER IH PRN (10:09)
[2021-01-21] MEDS: CALCIUM ACETATE/AL SULFATE TOP 1.9 GM/PACKET PACKET TP SCH ×2 (13:35→22:34)
[2021-01-21] MEDS: MELATONIN 5 MG TABLETS PO SCH (22:34)
[2021-01-21] MEDS: THIAMINE HCL 100 MG TABLET (FP) PO SCH (22:34)
[2021-01-21] MEDS: traZODone HCL 100 MG TABLET (FP) PO SCH (22:34)
[2021-01-21] MEDS: hydrOXYzine PAMOATE 25 MG CAPSULE (FP) PO PRN (23:43)
[2021-01-22] MEDS ORDERED: chlordiazePOXIDE HCL 10 MG CAPSULE PO ONE (05:00)
[2021-01-22 09:50] VITALS: BP 118/79; PULSE 86; TEMP 98.1
[2021-01-22] MEDS: amLODIPine BESYLATE 10 MG TABLET (FP) PO SCH (10:16)
[2021-01-22] MEDS: ARIPiprazole 10 MG TABLET PO SCH (10:16)
[2021-01-22] MEDS: hydrOXYzine PAMOATE 25 MG CAPSULE (FP) PO PRN (10:16)
[2021-01-22] MEDS: PRENATAL VITAMINS W/ FOLIC ACID TABLET (FP) PO SCH (10:17)
[2021-01-22] MEDS: CALCIUM ACETATE/AL SULFATE TOP 1.9 GM/PACKET PACKET TP SCH (10:18)
== END 2021-01-22 11:59 | disposition other institution (70) | DRG 774 ==
LOC: YASAS 15:11 → Y3N 16:31 → Y6N 17:07
PROVIDERS: ADMIT Allergy & Immunology; ATTEND Allergy & Immunology
PROC: HZ2ZZZZ Detoxification Services for Substance Abuse Treatment (ICD-10-PCS; principal; 2021-01-17)
DX: F10.230 Alcohol dependence with withdrawal, uncomplicated (principal); F14.20 Cocaine dependence, uncomplicated; F12.20 Cannabis dependence, uncomplicated; F17.210 Nicotine dependence, cigarettes, uncomplicated; F19.282 Other psychoactive substance dependence with psychoactive substance-induced sleep disorder; F19.24 Other psychoactive substance dependence with psychoactive substance-induced mood disorder; F32.9 Major depressive disorder, single episode, unspecified; F43.10 Post-traumatic stress disorder, unspecified; E80.6 Other disorders of bilirubin metabolism; I10 Essential (primary) hypertension; J45.20 Mild intermittent asthma, uncomplicated; K21.9 Gastro-esophageal reflux disease without esophagitis; M1A.0620 Idiopathic chronic gout, left knee, without tophus (tophi); M19.90 Unspecified osteoarthritis, unspecified site
CPT/HCPCS: 36415; 80053; 80076; 85027; 86780; 93005; 93010; C9803; U0003; U0005

== ENCOUNTER 2021-01-22 12:08 | Inpatient (IN) | payer OTHER ==
[2021-01-22 12:31] VITALS: BP 127/82; PULSE 84; TEMP 97.3
[2021-01-22] MEDS ORDERED: MAGNESIUM HYDROX 2400MG/30ML ORAL SUSPENSION 30 ML CUP PO PRN (13:07)
[2021-01-22] MEDS ORDERED: MAG HYDROX/AL HYDROX/SIMETH 30 ML UNIT-DOSE CUP PO PRN (13:07)
[2021-01-22] MEDS ORDERED: ACETAMINOPHEN 325 MG TABLET (FP) PO PRN (13:07)
[2021-01-22] MEDS ORDERED: IBUPROFEN 400 MG TABLET (FP) PO PRN (13:07)
[2021-01-22] MEDS ORDERED: P-EPHED 60MG/TRIPROLIDI 2.5MG TABLET PO PRN (13:07)
[2021-01-22] MEDS ORDERED: guaiFENesin 200 MG/10 ML 10 ML UNIT-DOSE CUPS PO PRN (13:07)
[2021-01-22] MEDS ORDERED: MAGNESIUM CITRATE 300 ML BOTTLE PO PRN (13:07)
[2021-01-22] MEDS ORDERED: NICOTINE POLACRILEX 2 MG GUM BC PRN (13:07)
[2021-01-22] MEDS ORDERED: LOPERAMIDE HCL 2 MG CAPSULE PO PRN (13:07)
[2021-01-22] MEDS ORDERED: ALBUTEROL SO4 HFA INHALER IH PRN (13:08)
[2021-01-22] MEDS ORDERED: THIAMINE HCL 100 MG TABLET (FP) PO SCH (22:00)
[2021-01-22] MEDS ORDERED: CALCIUM ACETATE/AL SULFATE TOP 1.9 GM/PACKET PACKET TP SCH (22:00)
[2021-01-22] MEDS ORDERED: MELATONIN 5 MG TABLETS PO SCH (22:00)
[2021-01-22] MEDS ORDERED: traZODone HCL 100 MG TABLET (FP) PO SCH (22:00)
[2021-01-22] MEDS ORDERED: ARIPiprazole 10 MG TABLET PO SCH (22:00)
[2021-01-23] MEDS ORDERED: PRENATAL VITAMINS W/ FOLIC ACID TABLET (FP) PO SCH (10:00)
[2021-01-23] MEDS ORDERED: amLODIPine BESYLATE 10 MG TABLET (FP) PO SCH (10:00)
[2021-01-23] MEDS ORDERED: NICOTINE 7 MG/24 HOURS TOPICAL PATCH TD SCH (10:00)
== END 2021-01-22 15:40 | disposition left against medical advice (07) | DRG 770 ==
LOC: YASAS 12:08 → Y5N 12:12
PROVIDERS: ADMIT Allergy & Immunology; ATTEND Allergy & Immunology
PROC: HZ42ZZZ Group Counseling for Substance Abuse Treatment, Cognitive-Behavioral (ICD-10-PCS; principal; 2021-01-22)
DX: F10.20 Alcohol dependence, uncomplicated (principal); F17.210 Nicotine dependence, cigarettes, uncomplicated; F19.24 Other psychoactive substance dependence with psychoactive substance-induced mood disorder; I10 Essential (primary) hypertension; J45.20 Mild intermittent asthma, uncomplicated; K21.9 Gastro-esophageal reflux disease without esophagitis; M10.9 Gout, unspecified; B18.2 Chronic viral hepatitis C

== ENCOUNTER 2021-02-17 13:36 | Inpatient (IN) | payer OTHER ==
[2021-02-17 17:07] VITALS: BMI 24.0
[2021-02-17] MEDS ORDERED: MAGNESIUM HYDROX 2400MG/30ML ORAL SUSPENSION 30 ML CUP PO PRN (17:08)
[2021-02-17] MEDS ORDERED: MENTHOL/PHENOL 1 EACH UD MM PRN (17:08)
[2021-02-17] MEDS ORDERED: NICOTINE POLACRILEX 2 MG GUM BUC PRN (17:08)
[2021-02-17] MEDS ORDERED: METHOCARBAMOL 500 MG TABLET PO PRN (17:08)
[2021-02-17] MEDS ORDERED: MAG HYDROX/AL HYDROX/SIMETH 30 ML UNIT-DOSE CUP PO PRN (17:08)
[2021-02-17] MEDS ORDERED: BISMUTH SUBSALICYLATE 524 MG/30 ML PO PRN (17:08)
[2021-02-17] MEDS ORDERED: hydrOXYzine PAMOATE 25 MG CAPSULE (FP) PO PRN (17:08)
[2021-02-17] MEDS ORDERED: IBUPROFEN 400 MG TABLET (FP) PO PRN (17:08)
[2021-02-17] MEDS ORDERED: ACETAMINOPHEN 325 MG TABLET (FP) PO PRN ×2 (17:08)
[2021-02-17] MEDS ORDERED: MAGNESIUM CITRATE 300 ML BOTTLE PO PRN (17:08)
[2021-02-17] MEDS ORDERED: ONDANSETRON *ODT* 4 MG TABLET SL PRN (17:08)
[2021-02-17] MEDS ORDERED: diazePAM 5 MG TABLET PO PRN (17:11)
[2021-02-17] MEDS: ASPIRIN 81 MG CHEWABLE TABLETS PO SCH (18:40)
[2021-02-17] MEDS: diazePAM 5 MG TABLET PO SCH ×2 (18:40→22:24)
[2021-02-17] MEDS: THIAMINE HCL 100 MG TABLET (FP) PO SCH (22:23)
[2021-02-17] MEDS: MELATONIN 5 MG TABLETS PO SCH (22:24)
[2021-02-18] MEDS: diazePAM 5 MG TABLET PO SCH ×4 (05:29→22:39)
[2021-02-18] MEDS: PRENATAL VITAMINS W/ FOLIC ACID TABLET (FP) PO SCH (10:50)
[2021-02-18] MEDS: ASPIRIN 81 MG CHEWABLE TABLETS PO SCH (10:50)
[2021-02-18] MEDS: amLODIPine BESYLATE 10 MG TABLET (FP) PO SCH (10:51)
[2021-02-18 11:22] LABS: HEMATOCRIT 43.7 % (35.4-49); HEMOGLOBIN 14.7 GM/dL (11.7-16.9); MCHC 33.6 g/dl (32.0-35.9); MEAN CELL VOLUME 98.2 fl (80-96); MEAN PLT VOLUME 9.7 fl (7.5-11.1); PLATELET COUNT 195 K/MM3 (134-434); RBC 4.45 M/mm3 (4.00-5.60); RDW 14.8 % (11.9-15.9); WHITE BLOOD COUNT 8.1 K/mm3 (4.0-10.0)
[2021-02-18 11:37] LABS: ALBUMIN 3.4 g/dl (3.4-5.0); BLOOD UREA NITROGEN 9.1 mg/dL (7-18); CALCIUM 8.9 mg/dL (8.5-10.1)
[2021-02-18 11:41] LABS: CREATININE 0.8 mg/dL (0.55-1.3)
[2021-02-18 11:43] LABS: BILIRUBIN,TOTAL 1.7 mg/dL (0.2-1); TOT PROT 6.7 g/dl (6.4-8.2)
[2021-02-18] MEDS ORDERED: POTASSIUM CHLORIDE TABS 20 MEQ TABLET.ER (FP) PO ONE (14:36)
[2021-02-18] MEDS: THIAMINE HCL 100 MG TABLET (FP) PO SCH (22:39)
[2021-02-18] MEDS: MELATONIN 5 MG TABLETS PO SCH (22:40)
[2021-02-19] MEDS: diazePAM 5 MG TABLET PO SCH ×3 (06:36→22:49)
[2021-02-19] MEDS: amLODIPine BESYLATE 10 MG TABLET (FP) PO SCH (10:11)
[2021-02-19] MEDS: ARIPiprazole 10 MG TABLET PO SCH (10:11)
[2021-02-19] MEDS: ASPIRIN 81 MG CHEWABLE TABLETS PO SCH (10:11)
[2021-02-19] MEDS: PRENATAL VITAMINS W/ FOLIC ACID TABLET (FP) PO SCH (10:12)
[2021-02-19] MEDS ORDERED: COLLOIDAL OATMEAL 1 BAR EACH TP PRN (10:34)
[2021-02-19] MEDS: MINERAL OIL/PETROLAT/WATER TOPICAL CREAM 113 GM JAR TP SCH ×2 (13:17→23:00)
[2021-02-19] MEDS: METHYL SALICYLATE/MENTHOL OINT 30 GM TUBE TP SCH ×2 (13:17→23:00)
[2021-02-19] MEDS: THIAMINE HCL 100 MG TABLET (FP) PO SCH (22:49)
[2021-02-19] MEDS: traZODone HCL 100 MG TABLET (FP) PO SCH (22:49)
[2021-02-19] MEDS: MELATONIN 5 MG TABLETS PO SCH (23:01)
[2021-02-20] MEDS: diazePAM 5 MG TABLET PO SCH ×2 (07:17→19:04)
[2021-02-20] MEDS: ASPIRIN 81 MG CHEWABLE TABLETS PO SCH (10:51)
[2021-02-20] MEDS: PRENATAL VITAMINS W/ FOLIC ACID TABLET (FP) PO SCH (10:51)
[2021-02-20] MEDS: amLODIPine BESYLATE 10 MG TABLET (FP) PO SCH (10:51)
[2021-02-20] MEDS: ARIPiprazole 10 MG TABLET PO SCH (10:51)
[2021-02-20] MEDS: METHYL SALICYLATE/MENTHOL OINT 30 GM TUBE TP SCH ×2 (10:52→22:37)
[2021-02-20] MEDS: MINERAL OIL/PETROLAT/WATER TOPICAL CREAM 113 GM JAR TP SCH ×2 (10:52→22:37)
[2021-02-20] MEDS: traZODone HCL 100 MG TABLET (FP) PO SCH (22:36)
[2021-02-20] MEDS: THIAMINE HCL 100 MG TABLET (FP) PO SCH (22:36)
[2021-02-20] MEDS: MELATONIN 5 MG TABLETS PO SCH (22:38)
[2021-02-21] MEDS ORDERED: diazePAM 5 MG TABLET PO ONE (06:00)
[2021-02-21] MEDS: ARIPiprazole 10 MG TABLET PO SCH (10:29)
[2021-02-21] MEDS: ASPIRIN 81 MG CHEWABLE TABLETS PO SCH (10:29)
[2021-02-21] MEDS: amLODIPine BESYLATE 10 MG TABLET (FP) PO SCH (10:29)
[2021-02-21] MEDS: METHYL SALICYLATE/MENTHOL OINT 30 GM TUBE TP SCH (10:31)
[2021-02-21] MEDS: MINERAL OIL/PETROLAT/WATER TOPICAL CREAM 113 GM JAR TP SCH (10:31)
[2021-02-21] MEDS: PRENATAL VITAMINS W/ FOLIC ACID TABLET (FP) PO SCH (10:56)
[2021-02-21 12:45] VITALS: BP 132/74; PULSE 79; TEMP 98.1
== END 2021-02-21 12:39 | disposition other institution (70) | DRG 774 ==
LOC: YASAS 13:36 → Y6N 17:15
PROVIDERS: ADMIT Allergy & Immunology; ATTEND Allergy & Immunology
PROC: HZ2ZZZZ Detoxification Services for Substance Abuse Treatment (ICD-10-PCS; principal; 2021-02-17)
DX: F10.20 Alcohol dependence, uncomplicated (principal); F14.20 Cocaine dependence, uncomplicated; F12.20 Cannabis dependence, uncomplicated; F33.1 Major depressive disorder, recurrent, moderate; F19.282 Other psychoactive substance dependence with psychoactive substance-induced sleep disorder; F10.24 Alcohol dependence with alcohol-induced mood disorder; F19.24 Other psychoactive substance dependence with psychoactive substance-induced mood disorder; F43.10 Post-traumatic stress disorder, unspecified; E87.6 Hypokalemia; I10 Essential (primary) hypertension; I83.92 Asymptomatic varicose veins of left lower extremity; K21.9 Gastro-esophageal reflux disease without esophagitis; J45.909 Unspecified asthma, uncomplicated; M10.9 Gout, unspecified; Z91.018 Allergy to other foods; Z91.013 Allergy to seafood; B18.2 Chronic viral hepatitis C; Z99.89 Dependence on other enabling machines and devices; Z56.0 Unemployment, unspecified; Z59.0 Homelessness
CPT/HCPCS: 36415; 80053; 82962; 85027; 86780; C9803; U0003; U0005

== ENCOUNTER 2021-02-21 13:40 | Inpatient (IN) | payer OTHER ==
[2021-02-21 15:25] VITALS: BP 110/77; PULSE 104; TEMP 97.3
[2021-02-21] MEDS ORDERED: ACETAMINOPHEN 325 MG TABLET (FP) PO PRN (15:43)
[2021-02-21] MEDS ORDERED: MAGNESIUM HYDROX 2400MG/30ML ORAL SUSPENSION 30 ML CUP PO PRN (15:43)
[2021-02-21] MEDS ORDERED: P-EPHED 60MG/TRIPROLIDI 2.5MG TABLET PO PRN (15:43)
[2021-02-21] MEDS ORDERED: NICOTINE POLACRILEX 2 MG GUM BUC PRN (15:43)
[2021-02-21] MEDS ORDERED: MAGNESIUM CITRATE 300 ML BOTTLE PO PRN (15:43)
[2021-02-21] MEDS ORDERED: IBUPROFEN 400 MG TABLET (FP) PO PRN (15:43)
[2021-02-21] MEDS ORDERED: LOPERAMIDE HCL 2 MG CAPSULE PO PRN (15:43)
[2021-02-21] MEDS ORDERED: MENTHOL/PHENOL 1 EACH UD MM PRN (15:43)
[2021-02-21] MEDS ORDERED: hydrOXYzine PAMOATE 25 MG CAPSULE (FP) PO PRN (15:43)
[2021-02-21] MEDS ORDERED: MAG HYDROX/AL HYDROX/SIMETH 30 ML UNIT-DOSE CUP PO PRN (15:43)
[2021-02-21] MEDS ORDERED: guaiFENesin 200 MG/10 ML 10 ML UNIT-DOSE CUPS PO PRN (15:43)
[2021-02-21] MEDS ORDERED: ALBUTEROL SO4 HFA INHALER IH PRN (15:44)
[2021-02-21] MEDS ORDERED: MELATONIN 5 MG TABLETS PO SCH (22:00)
[2021-02-21] MEDS ORDERED: traZODone HCL 100 MG TABLET (FP) PO SCH (22:00)
[2021-02-21] MEDS ORDERED: ARIPiprazole 5 MG TABLET PO SCH (22:00)
[2021-02-21] MEDS ORDERED: THIAMINE HCL 100 MG TABLET (FP) PO SCH (22:00)
[2021-02-22] MEDS ORDERED: NICOTINE 7 MG/24 HOURS TOPICAL PATCH TD SCH (10:00)
[2021-02-22] MEDS ORDERED: amLODIPine BESYLATE 10 MG TABLET (FP) PO SCH (10:00)
[2021-02-22] MEDS ORDERED: ASPIRIN 81 MG CHEWABLE TABLETS PO SCH (10:00)
[2021-02-22] MEDS ORDERED: PRENATAL VITAMINS W/ FOLIC ACID TABLET (FP) PO SCH (10:00)
== END 2021-02-21 16:50 | disposition left against medical advice (07) | DRG 770 ==
LOC: YASAS 13:40 → Y5N 13:41
PROVIDERS: ADMIT Allergy & Immunology; ATTEND Allergy & Immunology
PROC: HZ42ZZZ Group Counseling for Substance Abuse Treatment, Cognitive-Behavioral (ICD-10-PCS; principal; 2021-02-21)
DX: F10.20 Alcohol dependence, uncomplicated (principal); F14.20 Cocaine dependence, uncomplicated; F12.20 Cannabis dependence, uncomplicated; F17.210 Nicotine dependence, cigarettes, uncomplicated; F32.9 Major depressive disorder, single episode, unspecified; I10 Essential (primary) hypertension; I83.92 Asymptomatic varicose veins of left lower extremity; J45.909 Unspecified asthma, uncomplicated; K21.9 Gastro-esophageal reflux disease without esophagitis; M10.9 Gout, unspecified; M19.041 Primary osteoarthritis, right hand; M19.042 Primary osteoarthritis, left hand

== ENCOUNTER 2021-12-28 23:08 | Inpatient (IN) | payer OTHER ==
[2021-12-29] MEDS ORDERED: ACETAMINOPHEN 325 MG TABLET (FP) PO PRN ×2 (01:25)
[2021-12-29] MEDS ORDERED: METHOCARBAMOL 500 MG TABLET PO PRN (01:25)
[2021-12-29] MEDS ORDERED: LOPERAMIDE HCL 2 MG CAPSULE PO PRN (01:25)
[2021-12-29] MEDS ORDERED: MAG HYDROX/AL HYDROX/SIMETH 30 ML UNIT-DOSE CUP PO PRN (01:25)
[2021-12-29] MEDS ORDERED: MAGNESIUM HYDROX 2400MG/30ML ORAL SUSPENSION 30 ML CUP PO PRN (01:25)
[2021-12-29] MEDS ORDERED: ONDANSETRON *ODT* 4 MG TABLET SL PRN (01:25)
[2021-12-29] MEDS ORDERED: BISMUTH SUBSALICYLATE 524 MG/30 ML PO PRN (01:25)
[2021-12-29] MEDS ORDERED: IBUPROFEN 400 MG TABLET (FP) PO PRN (01:25)
[2021-12-29] MEDS ORDERED: DICYCLOMINE HCL 10 MG CAPSULE PO PRN (01:25)
[2021-12-29] MEDS ORDERED: MAGNESIUM CITRATE 300 ML BOTTLE PO PRN (01:25)
[2021-12-29] MEDS ORDERED: NICOTINE POLACRILEX 2 MG GUM BUC PRN (01:25)
[2021-12-29] MEDS ORDERED: BENZOCAINE/MENTHOL (CHLORASEPTIC ) LOZENGE MM PRN (01:25)
[2021-12-29] MEDS ORDERED: NICOTINE 10 MG CARTRIDGE (INHALER) IH PRN (01:25)
[2021-12-29] MEDS ORDERED: chlordiazePOXIDE HCL 25 MG CAPSULE PO PRN (10:01)
[2021-12-29] MEDS: chlordiazePOXIDE HCL 25 MG CAPSULE PO SCH ×3 (13:00→23:08)
[2021-12-29] MEDS ORDERED: chlordiazePOXIDE HCL 25 MG CAPSULE ONE (14:06)
[2021-12-29 14:45] LABS: HEMATOCRIT 41.2 % (35.4-49); HEMOGLOBIN 13.7 GM/dL (11.7-16.9); MCH 32.1 pg (25.7-33.7); MCHC 33.2 g/dl (32.0-35.9); MEAN CELL VOLUME 96.5 fl (80-96); PLATELET COUNT 248 10^3/uL (134-434); RBC 4.26 M/mm3 (4.00-5.60); RDW 15.5 % (11.9-15.9); WHITE BLOOD COUNT 5.8 K/mm3 (4.0-10.0)
[2021-12-29 14:49] LABS: CALCIUM 8.8 mg/dL (8.5-10.1)
[2021-12-29 14:50] LABS: ALBUMIN 3.5 g/dl (3.4-5.0); BLOOD UREA NITROGEN 10.2 mg/dL (7-18)
[2021-12-29 14:53] LABS: CREATININE 0.8 mg/dL (0.55-1.3)
[2021-12-29 14:54] LABS: TOT PROT 7.1 g/dl (6.4-8.2)
[2021-12-29] MEDS: ASPIRIN 81 MG CHEWABLE TABLETS PO SCH (15:28)
[2021-12-29] MEDS: amLODIPine BESYLATE 10 MG TABLET (FP) PO SCH (15:29)
[2021-12-29] MEDS: PRENATAL VITAMINS W/ FOLIC ACID TABLET (FP) PO SCH (17:22)
[2021-12-29] MEDS: NICOTINE 21 MG/24 HOURS TOPICAL PATCH TD SCH (17:22)
[2021-12-29] MEDS: MELATONIN 5 MG TABLETS PO SCH (23:08)
[2021-12-29] MEDS: THIAMINE HCL 100 MG TABLET (FP) PO SCH (23:08)
[2021-12-30] MEDS: chlordiazePOXIDE HCL 25 MG CAPSULE PO SCH ×4 (06:33→22:50)
[2021-12-30] MEDS: ASPIRIN 81 MG CHEWABLE TABLETS PO SCH (11:52)
[2021-12-30] MEDS: amLODIPine BESYLATE 10 MG TABLET (FP) PO SCH (11:53)
[2021-12-30] MEDS: NICOTINE 21 MG/24 HOURS TOPICAL PATCH TD SCH (11:53)
[2021-12-30] MEDS: PRENATAL VITAMINS W/ FOLIC ACID TABLET (FP) PO SCH (11:53)
[2021-12-30] MEDS: ALBUTEROL SO4 HFA INHALER IH PRN ×2 (13:37→22:50)
[2021-12-30] MEDS ORDERED: traZODone HCL 100 MG TABLET (FP) PO SCH (22:00)
[2021-12-30] MEDS: traZODone HCL 50 MG TABLET (FP) PO SCH (22:50)
[2021-12-30] MEDS: THIAMINE HCL 100 MG TABLET (FP) PO SCH (22:50)
[2021-12-30] MEDS: MELATONIN 5 MG TABLETS PO SCH (22:50)
[2021-12-31] MEDS: chlordiazePOXIDE HCL 25 MG CAPSULE PO SCH ×4 (06:36→22:56)
[2021-12-31] MEDS: ASPIRIN 81 MG CHEWABLE TABLETS PO SCH (10:47)
[2021-12-31] MEDS: PRENATAL VITAMINS W/ FOLIC ACID TABLET (FP) PO SCH (10:47)
[2021-12-31] MEDS: amLODIPine BESYLATE 10 MG TABLET (FP) PO SCH (10:50)
[2021-12-31] MEDS: NICOTINE 21 MG/24 HOURS TOPICAL PATCH TD SCH (10:50)
[2021-12-31] MEDS: ALBUTEROL SO4 HFA INHALER IH PRN (17:45)
[2021-12-31] MEDS: MELATONIN 5 MG TABLETS PO SCH (22:55)
[2021-12-31] MEDS: THIAMINE HCL 100 MG TABLET (FP) PO SCH (22:55)
[2021-12-31] MEDS: traZODone HCL 50 MG TABLET (FP) PO SCH (22:55)
[2022-01-01] MEDS ORDERED: chlordiazePOXIDE HCL 10 MG CAPSULE PO PRN
[2022-01-01 00:10] LABS: SARS-CoV-2 NAA Not Detected (Not Detected)
[2022-01-01] MEDS: chlordiazePOXIDE HCL 10 MG CAPSULE PO SCH ×4 (06:30→22:13)
[2022-01-01] MEDS: ASPIRIN 81 MG CHEWABLE TABLETS PO SCH (10:59)
[2022-01-01] MEDS: amLODIPine BESYLATE 10 MG TABLET (FP) PO SCH (10:59)
[2022-01-01] MEDS: NICOTINE 21 MG/24 HOURS TOPICAL PATCH TD SCH (11:01)
[2022-01-01] MEDS: PRENATAL VITAMINS W/ FOLIC ACID TABLET (FP) PO SCH (11:02)
[2022-01-01] MEDS: METHYL SALICYLATE/MENTHOL OINT 30 GM TUBE TP SCH (11:55)
[2022-01-01 22:12] VITALS: BMI 25.0
[2022-01-01] MEDS: ALBUTEROL SO4 HFA INHALER IH PRN (22:12)
[2022-01-01] MEDS: traZODone HCL 50 MG TABLET (FP) PO SCH (22:13)
[2022-01-01] MEDS: THIAMINE HCL 100 MG TABLET (FP) PO SCH (22:13)
[2022-01-01] MEDS: MELATONIN 5 MG TABLETS PO SCH (22:13)
[2022-01-02] MEDS ORDERED: chlordiazePOXIDE HCL 10 MG CAPSULE PO SCH (05:00)
[2022-01-02 09:10] VITALS: PULSE 79; TEMP 97.1
[2022-01-02] MEDS: ASPIRIN 81 MG CHEWABLE TABLETS PO SCH (10:13)
[2022-01-02] MEDS: amLODIPine BESYLATE 10 MG TABLET (FP) PO SCH (10:13)
[2022-01-02] MEDS: PRENATAL VITAMINS W/ FOLIC ACID TABLET (FP) PO SCH (10:13)
[2022-01-02] MEDS: NICOTINE 21 MG/24 HOURS TOPICAL PATCH TD SCH (10:14)
[2022-01-02] MEDS: METHYL SALICYLATE/MENTHOL OINT 30 GM TUBE TP SCH (10:14)
[2022-01-02 12:54] VITALS: BP 113/61
[2022-01-03] MEDS ORDERED: chlordiazePOXIDE HCL 10 MG CAPSULE PO ONE (05:00)
== END 2022-01-02 14:50 | disposition home or self-care (01) | DRG 774 ==
LOC: YASAS 23:08 → Y3N 12-29 12:14
PROVIDERS: ADMIT Allergy & Immunology; ATTEND Allergy & Immunology
PROC: HZ2ZZZZ Detoxification Services for Substance Abuse Treatment (ICD-10-PCS; principal; 2021-12-29)
DX: F10.230 Alcohol dependence with withdrawal, uncomplicated (principal); F14.20 Cocaine dependence, uncomplicated; F12.20 Cannabis dependence, uncomplicated; F17.210 Nicotine dependence, cigarettes, uncomplicated; F19.24 Other psychoactive substance dependence with psychoactive substance-induced mood disorder; G47.00 Insomnia, unspecified; I10 Essential (primary) hypertension; J45.20 Mild intermittent asthma, uncomplicated; M19.041 Primary osteoarthritis, right hand; M19.042 Primary osteoarthritis, left hand; M10.062 Idiopathic gout, left knee; Z99.89 Dependence on other enabling machines and devices; Z28.310 Unvaccinated for COVID-19; Z91.013 Allergy to seafood; Z91.018 Allergy to other foods; Z59.02 Unsheltered homelessness
CPT/HCPCS: 36415; 80053; 85027; 86780; 93005; 93010; C9803-CS; U0003; U0005

== ENCOUNTER 2022-01-23 12:45 | Inpatient (IN) | payer OTHER ==
[2022-01-23] MEDS ORDERED: MAG HYDROX/AL HYDROX/SIMETH 30 ML UNIT-DOSE CUP PO PRN (13:20)
[2022-01-23] MEDS ORDERED: IBUPROFEN 400 MG TABLET (FP) PO PRN (13:20)
[2022-01-23] MEDS ORDERED: ONDANSETRON *ODT* 4 MG TABLET SL PRN (13:20)
[2022-01-23] MEDS ORDERED: NICOTINE 10 MG CARTRIDGE (INHALER) IH PRN (13:20)
[2022-01-23] MEDS ORDERED: BISMUTH SUBSALICYLATE 524 MG/30 ML PO PRN (13:20)
[2022-01-23] MEDS ORDERED: LOPERAMIDE HCL 2 MG CAPSULE PO PRN (13:20)
[2022-01-23] MEDS ORDERED: DICYCLOMINE HCL 10 MG CAPSULE PO PRN (13:20)
[2022-01-23] MEDS ORDERED: MAGNESIUM CITRATE 300 ML BOTTLE PO PRN (13:20)
[2022-01-23] MEDS ORDERED: chlordiazePOXIDE HCL 25 MG CAPSULE PO PRN (13:20)
[2022-01-23] MEDS ORDERED: BENZOCAINE/MENTHOL (CHLORASEPTIC ) LOZENGE MM PRN (13:20)
[2022-01-23] MEDS ORDERED: MAGNESIUM HYDROX 2400MG/30ML ORAL SUSPENSION 30 ML CUP PO PRN (13:20)
[2022-01-23] MEDS ORDERED: ACETAMINOPHEN 325 MG TABLET (FP) PO PRN ×2 (13:20)
[2022-01-23] MEDS: chlordiazePOXIDE HCL 25 MG CAPSULE PO SCH ×2 (18:08→22:29)
[2022-01-23] MEDS: NICOTINE 21 MG/24 HOURS TOPICAL PATCH TD SCH (18:15)
[2022-01-23] MEDS: hydrOXYzine PAMOATE 25 MG CAPSULE (FP) PO SCH ×3 (18:15→22:29)
[2022-01-23] MEDS: PRENATAL VITAMINS W/ FOLIC ACID TABLET (FP) PO SCH (18:15)
[2022-01-23] MEDS: MELATONIN 5 MG TABLETS PO SCH (22:28)
[2022-01-23] MEDS: THIAMINE HCL 100 MG TABLET (FP) PO SCH (22:29)
[2022-01-24] MEDS: chlordiazePOXIDE HCL 25 MG CAPSULE PO SCH ×4 (06:25→22:35)
[2022-01-24] MEDS: hydrOXYzine PAMOATE 25 MG CAPSULE (FP) PO SCH ×5 (06:26→22:35)
[2022-01-24] MEDS: METHOCARBAMOL 500 MG TABLET PO PRN (10:51)
[2022-01-24] MEDS: PRENATAL VITAMINS W/ FOLIC ACID TABLET (FP) PO SCH (10:51)
[2022-01-24] MEDS: NICOTINE 21 MG/24 HOURS TOPICAL PATCH TD SCH (10:51)
[2022-01-24 10:53] LABS: HEMATOCRIT 38.6 % (35.4-49); MCH 32.6 pg (25.7-33.7); MCHC 33.8 g/dl (32.0-35.9); MEAN CELL VOLUME 96.5 fl (80-96); MEAN PLT VOLUME 9.7 fl (7.5-11.1); PLATELET COUNT 200 10^3/uL (134-434); RDW 15.2 % (11.9-15.9); WHITE BLOOD COUNT 6.4 K/mm3 (4.0-10.0)
[2022-01-24 11:34] LABS: ALBUMIN 3.3 g/dl (3.4-5.0); BLOOD UREA NITROGEN 10.4 mg/dL (7-18)
[2022-01-24 11:36] LABS: CREATININE 0.8 mg/dL (0.55-1.3)
[2022-01-24 11:38] LABS: BILIRUBIN,TOTAL 1.2 mg/dL (0.2-1)
[2022-01-24 11:40] LABS: TOT PROT 6.9 g/dl (6.4-8.2)
[2022-01-24] MEDS: THIAMINE HCL 100 MG TABLET (FP) PO SCH (22:35)
[2022-01-24] MEDS: MELATONIN 5 MG TABLETS PO SCH (22:37)
[2022-01-25] MEDS: NICOTINE 21 MG/24 HOURS TOPICAL PATCH TD SCH (12:28)
[2022-01-25] MEDS: hydrOXYzine PAMOATE 25 MG CAPSULE (FP) PO SCH ×3 (12:30→18:06)
[2022-01-25] MEDS: chlordiazePOXIDE HCL 25 MG CAPSULE PO SCH ×3 (12:30→18:06)
[2022-01-25] MEDS: METHOCARBAMOL 500 MG TABLET PO PRN (12:30)
[2022-01-25] MEDS: PRENATAL VITAMINS W/ FOLIC ACID TABLET (FP) PO SCH (12:32)
[2022-01-25 20:08] LABS: SARS-CoV-2 NAA Not Detected (Not Detected)
[2022-01-26] MEDS ORDERED: chlordiazePOXIDE HCL 10 MG CAPSULE PO PRN
[2022-01-26] MEDS: MELATONIN 5 MG TABLETS PO SCH (00:12)
[2022-01-26] MEDS: THIAMINE HCL 100 MG TABLET (FP) PO SCH (00:12)
[2022-01-26] MEDS: hydrOXYzine PAMOATE 25 MG CAPSULE (FP) PO SCH ×5 (00:12→20:04)
[2022-01-26] MEDS: chlordiazePOXIDE HCL 25 MG CAPSULE PO SCH (00:13)
[2022-01-26] MEDS: chlordiazePOXIDE HCL 10 MG CAPSULE PO SCH ×3 (06:31→20:04)
[2022-01-26] MEDS ORDERED: COLLOIDAL OATMEAL 1 BAR EACH TP PRN (10:54)
[2022-01-26] MEDS ORDERED: CALAMINE 8% TOPICAL LOTION 177 ML BOTTLE TP PRN ×2 (10:54→10:55)
[2022-01-26] MEDS: ARIPiprazole 10 MG TABLET PO SCH (11:10)
[2022-01-26] MEDS: NICOTINE 21 MG/24 HOURS TOPICAL PATCH TD SCH (11:10)
[2022-01-26] MEDS: PRENATAL VITAMINS W/ FOLIC ACID TABLET (FP) PO SCH (11:10)
[2022-01-26] MEDS: METHYL SALICYLATE/MENTHOL OINT 30 GM TUBE TP SCH (13:29)
[2022-01-27] MEDS: METHYL SALICYLATE/MENTHOL OINT 30 GM TUBE TP SCH ×3 (00:30→21:44)
[2022-01-27] MEDS: traZODone HCL 100 MG TABLET (FP) PO SCH ×2 (00:30→21:44)
[2022-01-27] MEDS: chlordiazePOXIDE HCL 10 MG CAPSULE PO SCH ×3 (00:31→18:35)
[2022-01-27] MEDS: hydrOXYzine PAMOATE 25 MG CAPSULE (FP) PO SCH ×6 (00:31→21:44)
[2022-01-27] MEDS: MELATONIN 5 MG TABLETS PO SCH ×2 (00:31→21:44)
[2022-01-27] MEDS: THIAMINE HCL 100 MG TABLET (FP) PO SCH ×2 (00:31→21:44)
[2022-01-27] MEDS: PRENATAL VITAMINS W/ FOLIC ACID TABLET (FP) PO SCH (10:54)
[2022-01-27] MEDS: ARIPiprazole 10 MG TABLET PO SCH (10:54)
[2022-01-27] MEDS: NICOTINE 21 MG/24 HOURS TOPICAL PATCH TD SCH (10:54)
[2022-01-27] MEDS: METHOCARBAMOL 500 MG TABLET PO PRN ×2 (10:54→21:44)
[2022-01-28] MEDS ORDERED: chlordiazePOXIDE HCL 10 MG CAPSULE PO ONE (05:00)
[2022-01-28] MEDS: hydrOXYzine PAMOATE 25 MG CAPSULE (FP) PO SCH ×2 (06:36→10:30)
[2022-01-28 09:39] VITALS: BP 135/91; PULSE 100; TEMP 96.8
[2022-01-28] MEDS: PRENATAL VITAMINS W/ FOLIC ACID TABLET (FP) PO SCH (10:30)
[2022-01-28] MEDS: METHYL SALICYLATE/MENTHOL OINT 30 GM TUBE TP SCH (10:30)
[2022-01-28] MEDS: ARIPiprazole 10 MG TABLET PO SCH (10:30)
[2022-01-28] MEDS: NICOTINE 21 MG/24 HOURS TOPICAL PATCH TD SCH (10:30)
== END 2022-01-28 11:37 | disposition other institution (70) | DRG 774 ==
LOC: YASAS 12:45 → Y6N 15:48
PROVIDERS: ADMIT Allergy & Immunology; ATTEND Surgery
PROC: HZ2ZZZZ Detoxification Services for Substance Abuse Treatment (ICD-10-PCS; principal; 2022-01-23)
DX: F10.230 Alcohol dependence with withdrawal, uncomplicated (principal); F14.20 Cocaine dependence, uncomplicated; F12.20 Cannabis dependence, uncomplicated; F17.210 Nicotine dependence, cigarettes, uncomplicated; F10.282 Alcohol dependence with alcohol-induced sleep disorder; F10.24 Alcohol dependence with alcohol-induced mood disorder; F25.1 Schizoaffective disorder, depressive type; F39 Unspecified mood [affective] disorder; B18.2 Chronic viral hepatitis C; J45.20 Mild intermittent asthma, uncomplicated; M17.12 Unilateral primary osteoarthritis, left knee; M10.9 Gout, unspecified; Z99.89 Dependence on other enabling machines and devices; Z28.310 Unvaccinated for COVID-19; Z91.013 Allergy to seafood; Z91.018 Allergy to other foods; Z56.0 Unemployment, unspecified; Z59.00 Homelessness unspecified
CPT/HCPCS: 36415; 71045-TC-FY; 80053; 85027; 86780; C9803-CS; U0003; U0005

== ENCOUNTER 2022-04-16 11:41 | Inpatient (IN) | payer OTHER ==
[2022-04-16 12:23] VITALS: BMI 24.7
[2022-04-16] MEDS ORDERED: MAGNESIUM CITRATE 300 ML BOTTLE PO PRN (14:18)
[2022-04-16] MEDS ORDERED: METHOCARBAMOL 500 MG TABLET PO PRN (14:18)
[2022-04-16] MEDS ORDERED: MAG HYDROX/AL HYDROX/SIMETH 30 ML UNIT-DOSE CUP PO PRN (14:18)
[2022-04-16] MEDS ORDERED: ONDANSETRON *ODT* 4 MG TABLET SL PRN (14:18)
[2022-04-16] MEDS ORDERED: ACETAMINOPHEN 325 MG TABLET (FP) PO PRN ×2 (14:18)
[2022-04-16] MEDS ORDERED: IBUPROFEN 600 MG TABLET (FP) PO PRN (14:18)
[2022-04-16] MEDS ORDERED: BENZOCAINE/MENTHOL (CHLORASEPTIC ) LOZENGE MM PRN (14:18)
[2022-04-16] MEDS ORDERED: LOPERAMIDE HCL 2 MG CAPSULE PO PRN (14:18)
[2022-04-16] MEDS ORDERED: MAGNESIUM HYDROX 2400MG/30ML ORAL SUSPENSION 30 ML CUP PO PRN (14:18)
[2022-04-16] MEDS ORDERED: BISMUTH SUBSALICYLATE 262 MG/15 ML BTL PO PRN (14:18)
[2022-04-16] MEDS ORDERED: DICYCLOMINE HCL 10 MG CAPSULE PO PRN (14:18)
[2022-04-16] MEDS ORDERED: IBUPROFEN 400 MG TABLET (FP) PO PRN (14:18)
[2022-04-16] MEDS ORDERED: chlordiazePOXIDE HCL 25 MG CAPSULE PO PRN (14:34)
[2022-04-16] MEDS: amLODIPine BESYLATE 10 MG TABLET (FP) PO SCH (15:50)
[2022-04-16] MEDS: PRENATAL VITAMINS W/ FOLIC ACID TABLET (FP) PO SCH (15:50)
[2022-04-16] MEDS: ALBUTEROL SO4 HFA INHALER IH SCH ×3 (15:52→22:26)
[2022-04-16] MEDS: chlordiazePOXIDE HCL 25 MG CAPSULE PO SCH ×2 (17:33→22:24)
[2022-04-16] MEDS: hydrOXYzine PAMOATE 25 MG CAPSULE (FP) PO SCH ×2 (17:35→22:24)
[2022-04-16] MEDS: THIAMINE HCL 100 MG TABLET (FP) PO SCH (22:24)
[2022-04-16] MEDS: MELATONIN 5 MG TABLETS PO SCH (22:26)
[2022-04-17] MEDS: hydrOXYzine PAMOATE 25 MG CAPSULE (FP) PO SCH ×5 (05:15→22:43)
[2022-04-17] MEDS: chlordiazePOXIDE HCL 25 MG CAPSULE PO SCH ×4 (05:15→22:42)
[2022-04-17] MEDS: ALBUTEROL SO4 HFA INHALER IH SCH ×5 (05:16→19:55)
[2022-04-17] MEDS: PRENATAL VITAMINS W/ FOLIC ACID TABLET (FP) PO SCH (10:33)
[2022-04-17] MEDS: ARIPiprazole 10 MG TABLET PO SCH (10:34)
[2022-04-17] MEDS: amLODIPine BESYLATE 10 MG TABLET (FP) PO SCH (10:34)
[2022-04-17] MEDS: NICOTINE 7 MG/24 HOURS TOPICAL PATCH TD SCH (10:37)
[2022-04-17 10:52] LABS: HEMOGLOBIN 14.6 GM/dL (11.7-16.9); MCH 31.8 pg (25.7-33.7); MCHC 33.3 g/dl (32.0-35.9); MEAN CELL VOLUME 95.5 fl (80-96); MEAN PLT VOLUME 10.3 fl (7.5-11.1); PLATELET COUNT 180 10^3/uL (134-434); RDW 15.7 % (11.9-15.9); WHITE BLOOD COUNT 11.3 K/mm3 (4.0-10.0)
[2022-04-17 11:06] LABS: CHLORIDE 103 mmol/L (98-107); SODIUM 141 mmol/L (136-145)
[2022-04-17 12:06] LABS: CO2 29 mmol/L (21-32)
[2022-04-17 12:11] LABS: CALCIUM 9.3 mg/dL (8.5-10.1)
[2022-04-17 12:12] LABS: ALBUMIN 3.6 g/dl (3.4-5.0); BLOOD UREA NITROGEN 10.4 mg/dL (7-18); GLUCOSE,RANDOM 128 mg/dL (74-106)
[2022-04-17 12:14] LABS: SGPT/ALT 36 U/L (13-61)
[2022-04-17 12:15] LABS: CREATININE 0.7 mg/dL (0.55-1.3); SGOT/AST 41 U/L (15-37)
[2022-04-17 12:17] LABS: BILIRUBIN,TOTAL 2.4 mg/dL (0.2-1)
[2022-04-17 12:18] LABS: ALK PHOS 106 U/L (45-117); ANION GAP 10 MMOL/L (8-16)
[2022-04-17] MEDS ORDERED: POTASSIUM CHLORIDE ORAL LIQUID 20 MEQ/15 ML PO ONE (12:42)
[2022-04-17] MEDS: POTASSIUM CHLORIDE ORAL LIQUID 20 MEQ/15 ML PO SCH (22:36)
[2022-04-17] MEDS: traZODone HCL 100 MG TABLET (FP) PO SCH (22:37)
[2022-04-17] MEDS: MELATONIN 5 MG TABLETS PO SCH (22:43)
[2022-04-17] MEDS: THIAMINE HCL 100 MG TABLET (FP) PO SCH (22:43)
[2022-04-18] MEDS: ALBUTEROL SO4 HFA INHALER IH SCH ×7 (01:34→22:10)
[2022-04-18] MEDS: hydrOXYzine PAMOATE 25 MG CAPSULE (FP) PO SCH ×5 (05:01→22:10)
[2022-04-18] MEDS: chlordiazePOXIDE HCL 25 MG CAPSULE PO SCH ×4 (05:02→22:08)
[2022-04-18] MEDS: PRENATAL VITAMINS W/ FOLIC ACID TABLET (FP) PO SCH (11:06)
[2022-04-18] MEDS: ARIPiprazole 10 MG TABLET PO SCH (11:06)
[2022-04-18] MEDS: amLODIPine BESYLATE 10 MG TABLET (FP) PO SCH (11:06)
[2022-04-18] MEDS: NICOTINE 7 MG/24 HOURS TOPICAL PATCH TD SCH (11:10)
[2022-04-18] MEDS: POTASSIUM CHLORIDE ORAL LIQUID 20 MEQ/15 ML PO SCH ×3 (11:10→22:10)
[2022-04-18] MEDS: NICOTINE 10 MG CARTRIDGE (INHALER) IH PRN (13:03)
[2022-04-18] MEDS: THIAMINE HCL 100 MG TABLET (FP) PO SCH (22:07)
[2022-04-18] MEDS: traZODone HCL 100 MG TABLET (FP) PO SCH (22:07)
[2022-04-18] MEDS: MELATONIN 5 MG TABLETS PO SCH (22:11)
[2022-04-19] MEDS ORDERED: chlordiazePOXIDE HCL 10 MG CAPSULE PO PRN
[2022-04-19] MEDS: ALBUTEROL SO4 HFA INHALER IH SCH ×6 (03:02→22:56)
[2022-04-19] MEDS: hydrOXYzine PAMOATE 25 MG CAPSULE (FP) PO SCH ×5 (05:31→22:56)
[2022-04-19] MEDS: chlordiazePOXIDE HCL 10 MG CAPSULE PO SCH ×4 (05:32→22:56)
[2022-04-19] MEDS: NICOTINE 7 MG/24 HOURS TOPICAL PATCH TD SCH (11:05)
[2022-04-19] MEDS: PRENATAL VITAMINS W/ FOLIC ACID TABLET (FP) PO SCH (11:06)
[2022-04-19] MEDS: ARIPiprazole 10 MG TABLET PO SCH (11:09)
[2022-04-19] MEDS: amLODIPine BESYLATE 10 MG TABLET (FP) PO SCH (11:10)
[2022-04-19 14:32] LABS: HEMATOCRIT 39.9 % (35.4-49); HEMOGLOBIN 13.2 GM/dL (11.7-16.9); MCH 31.9 pg (25.7-33.7); MCHC 33.1 g/dl (32.0-35.9); MEAN CELL VOLUME 96.3 fl (80-96); MEAN PLT VOLUME 9.7 fl (7.5-11.1); PLATELET COUNT 168 10^3/uL (134-434); RBC 4.14 M/mm3 (4.00-5.60); WHITE BLOOD COUNT 8.3 K/mm3 (4.0-10.0)
[2022-04-19 14:59] LABS: ALBUMIN 3.3 g/dl (3.4-5.0); BLOOD UREA NITROGEN 6.2 mg/dL (7-18)
[2022-04-19 15:00] LABS: CALCIUM 9.1 mg/dL (8.5-10.1)
[2022-04-19 15:01] LABS: CREATININE 0.8 mg/dL (0.55-1.3)
[2022-04-19 15:03] LABS: BILIRUBIN,TOTAL 1.2 mg/dL (0.2-1); TOT PROT 6.5 g/dl (6.4-8.2)
[2022-04-19] MEDS: THIAMINE HCL 100 MG TABLET (FP) PO SCH (22:55)
[2022-04-19] MEDS: traZODone HCL 100 MG TABLET (FP) PO SCH (22:55)
[2022-04-19] MEDS: MELATONIN 5 MG TABLETS PO SCH (22:56)
[2022-04-20] MEDS: ALBUTEROL SO4 HFA INHALER IH SCH ×6 (02:24→23:26)
[2022-04-20] MEDS: chlordiazePOXIDE HCL 10 MG CAPSULE PO SCH ×2 (06:21→17:39)
[2022-04-20] MEDS: hydrOXYzine PAMOATE 25 MG CAPSULE (FP) PO SCH ×5 (06:25→23:25)
[2022-04-20] MEDS: ARIPiprazole 10 MG TABLET PO SCH (10:25)
[2022-04-20] MEDS: amLODIPine BESYLATE 10 MG TABLET (FP) PO SCH (10:25)
[2022-04-20] MEDS: PRENATAL VITAMINS W/ FOLIC ACID TABLET (FP) PO SCH (10:25)
[2022-04-20] MEDS: NICOTINE 7 MG/24 HOURS TOPICAL PATCH TD SCH (10:27)
[2022-04-20] MEDS: NICOTINE 10 MG CARTRIDGE (INHALER) IH PRN (12:00)
[2022-04-20] MEDS: MELATONIN 5 MG TABLETS PO SCH (23:25)
[2022-04-20] MEDS: traZODone HCL 100 MG TABLET (FP) PO SCH (23:25)
[2022-04-20] MEDS: THIAMINE HCL 100 MG TABLET (FP) PO SCH (23:26)
[2022-04-21] MEDS ORDERED: chlordiazePOXIDE HCL 10 MG CAPSULE PO ONE (05:00)
[2022-04-21] MEDS: ALBUTEROL SO4 HFA INHALER IH SCH ×3 (06:01→06:09)
[2022-04-21] MEDS: hydrOXYzine PAMOATE 25 MG CAPSULE (FP) PO SCH ×2 (06:03→09:31)
[2022-04-21 06:09] VITALS: TEMP 97.3
[2022-04-21 09:25] VITALS: BP 149/84; PULSE 98; RESP 18
[2022-04-21] MEDS: ARIPiprazole 10 MG TABLET PO SCH (09:30)
[2022-04-21] MEDS: NICOTINE 7 MG/24 HOURS TOPICAL PATCH TD SCH (09:30)
[2022-04-21] MEDS: PRENATAL VITAMINS W/ FOLIC ACID TABLET (FP) PO SCH (09:30)
[2022-04-21] MEDS: amLODIPine BESYLATE 10 MG TABLET (FP) PO SCH (09:30)
== END 2022-04-21 09:33 | disposition home or self-care (01) | DRG 774 ==
LOC: SUATTDRO 11:41 → YASAS 11:41 → Y6N 15:20
PROVIDERS: ADMIT Allergy & Immunology; ATTEND Surgery
PROC: HZ2ZZZZ Detoxification Services for Substance Abuse Treatment (ICD-10-PCS; principal; 2022-04-16)
DX: F10.230 Alcohol dependence with withdrawal, uncomplicated (principal); F14.20 Cocaine dependence, uncomplicated; F12.20 Cannabis dependence, uncomplicated; F17.210 Nicotine dependence, cigarettes, uncomplicated; F43.10 Post-traumatic stress disorder, unspecified; F19.24 Other psychoactive substance dependence with psychoactive substance-induced mood disorder; F19.282 Other psychoactive substance dependence with psychoactive substance-induced sleep disorder; F19.280 Other psychoactive substance dependence with psychoactive substance-induced anxiety disorder; F33.9 Major depressive disorder, recurrent, unspecified; F20.0 Paranoid schizophrenia; I10 Essential (primary) hypertension; J45.909 Unspecified asthma, uncomplicated; K21.9 Gastro-esophageal reflux disease without esophagitis; M19.042 Primary osteoarthritis, left hand; M19.041 Primary osteoarthritis, right hand; B18.2 Chronic viral hepatitis C; M10.062 Idiopathic gout, left knee; Z91.013 Allergy to seafood; Z88.8 Allergy status to other drugs, medicaments and biological substances; Z86.69 Personal history of other diseases of the nervous system and sense organs; Z56.0 Unemployment, unspecified; Z59.00 Homelessness unspecified
CPT/HCPCS: 36415; 80053; 82140; 82947; 83036; 84132; 85027; 86780; 87811; C9803-CS; U0003; U0005

== ENCOUNTER 2022-05-27 14:04 | Inpatient (IN) | payer OTHER ==
[2022-05-27 16:43] VITALS: BMI 25.8
[2022-05-27] MEDS ORDERED: BISMUTH SUBSALICYLATE 524 MG/30 ML PO PRN (18:56)
[2022-05-27] MEDS ORDERED: chlordiazePOXIDE HCL 25 MG CAPSULE PO PRN (18:56)
[2022-05-27] MEDS ORDERED: MAG HYDROX/AL HYDROX/SIMETH 30 ML UNIT-DOSE CUP PO PRN (18:56)
[2022-05-27] MEDS ORDERED: DICYCLOMINE HCL 10 MG CAPSULE PO PRN (18:56)
[2022-05-27] MEDS ORDERED: ONDANSETRON *ODT* 4 MG TABLET SL PRN (18:56)
[2022-05-27] MEDS ORDERED: ACETAMINOPHEN 325 MG TABLET (FP) PO PRN ×2 (18:56)
[2022-05-27] MEDS ORDERED: METHOCARBAMOL 500 MG TABLET PO PRN (18:56)
[2022-05-27] MEDS ORDERED: IBUPROFEN 600 MG TABLET (FP) PO PRN (18:56)
[2022-05-27] MEDS ORDERED: NICOTINE 10 MG CARTRIDGE (INHALER) IH PRN (18:56)
[2022-05-27] MEDS ORDERED: BENZOCAINE/MENTHOL (CHLORASEPTIC ) LOZENGE MM PRN (18:56)
[2022-05-27] MEDS ORDERED: MAGNESIUM HYDROX 2400MG/30ML ORAL SUSPENSION 30 ML CUP PO PRN (18:56)
[2022-05-27] MEDS ORDERED: LOPERAMIDE HCL 2 MG CAPSULE PO PRN (18:56)
[2022-05-27] MEDS ORDERED: IBUPROFEN 400 MG TABLET (FP) PO PRN (18:56)
[2022-05-27] MEDS ORDERED: MAGNESIUM CITRATE 300 ML BOTTLE PO PRN (18:56)
[2022-05-27] MEDS ORDERED: CALAMINE 8% TOPICAL LOTION 177 ML BOTTLE TP PRN (19:08)
[2022-05-27] MEDS ORDERED: COLLOIDAL OATMEAL 1 BAR EACH TP PRN (19:09)
[2022-05-27] MEDS: ALBUTEROL SO4 HFA INHALER IH PRN (20:22)
[2022-05-27] MEDS: amLODIPine BESYLATE 10 MG TABLET (FP) PO SCH (20:23)
[2022-05-27] MEDS: chlordiazePOXIDE HCL 25 MG CAPSULE PO SCH (20:23)
[2022-05-27] MEDS: NICOTINE 21 MG/24 HOURS TOPICAL PATCH TD SCH (20:42)
[2022-05-27] MEDS: MELATONIN 5 MG TABLETS PO SCH (22:16)
[2022-05-27] MEDS: THIAMINE HCL 100 MG TABLET (FP) PO SCH (22:17)
[2022-05-27] MEDS: hydrOXYzine PAMOATE 25 MG CAPSULE (FP) PO SCH (22:17)
[2022-05-28] MEDS: chlordiazePOXIDE HCL 25 MG CAPSULE PO SCH ×4 (06:24→22:32)
[2022-05-28] MEDS: hydrOXYzine PAMOATE 25 MG CAPSULE (FP) PO SCH ×5 (06:24→22:32)
[2022-05-28] MEDS: amLODIPine BESYLATE 10 MG TABLET (FP) PO SCH (10:33)
[2022-05-28] MEDS: PRENATAL VITAMINS W/ FOLIC ACID TABLET (FP) PO SCH (10:34)
[2022-05-28] MEDS: NICOTINE 21 MG/24 HOURS TOPICAL PATCH TD SCH (10:34)
[2022-05-28] MEDS: ARIPiprazole 10 MG TABLET PO SCH (13:18)
[2022-05-28] MEDS: MELATONIN 5 MG TABLETS PO SCH (22:32)
[2022-05-28] MEDS: traZODone HCL 100 MG TABLET (FP) PO SCH (22:32)
[2022-05-28] MEDS: THIAMINE HCL 100 MG TABLET (FP) PO SCH (22:32)
[2022-05-29] MEDS: chlordiazePOXIDE HCL 25 MG CAPSULE PO SCH ×4 (05:54→22:09)
[2022-05-29] MEDS: hydrOXYzine PAMOATE 25 MG CAPSULE (FP) PO SCH ×5 (05:54→22:09)
[2022-05-29] MEDS: amLODIPine BESYLATE 10 MG TABLET (FP) PO SCH (10:08)
[2022-05-29] MEDS: PRENATAL VITAMINS W/ FOLIC ACID TABLET (FP) PO SCH (10:08)
[2022-05-29] MEDS: NICOTINE 21 MG/24 HOURS TOPICAL PATCH TD SCH (10:08)
[2022-05-29] MEDS: ARIPiprazole 10 MG TABLET PO SCH (10:08)
[2022-05-29] MEDS: ALBUTEROL SO4 HFA INHALER IH PRN ×2 (13:18→17:49)
[2022-05-29] MEDS: MELATONIN 5 MG TABLETS PO SCH (22:09)
[2022-05-29] MEDS: THIAMINE HCL 100 MG TABLET (FP) PO SCH (22:09)
[2022-05-29] MEDS: traZODone HCL 100 MG TABLET (FP) PO SCH (22:09)
[2022-05-30] MEDS ORDERED: chlordiazePOXIDE HCL 10 MG CAPSULE PO PRN
[2022-05-30] MEDS: chlordiazePOXIDE HCL 10 MG CAPSULE PO SCH ×2 (05:23→11:26)
[2022-05-30] MEDS: hydrOXYzine PAMOATE 25 MG CAPSULE (FP) PO SCH ×2 (05:23→11:26)
[2022-05-30 09:26] VITALS: BP 120/76; PULSE 91; RESP 16; TEMP 98
[2022-05-30] MEDS: ARIPiprazole 10 MG TABLET PO SCH (11:25)
[2022-05-30] MEDS: NICOTINE 21 MG/24 HOURS TOPICAL PATCH TD SCH (11:26)
[2022-05-30] MEDS: amLODIPine BESYLATE 10 MG TABLET (FP) PO SCH (11:26)
[2022-05-30] MEDS: PRENATAL VITAMINS W/ FOLIC ACID TABLET (FP) PO SCH (11:26)
[2022-05-31] MEDS ORDERED: chlordiazePOXIDE HCL 10 MG CAPSULE PO SCH (05:00)
[2022-06-01] MEDS ORDERED: chlordiazePOXIDE HCL 10 MG CAPSULE PO ONE (05:00)
== END 2022-05-30 11:14 | disposition left against medical advice (07) | DRG 770 ==
LOC: YASAS 14:04 → Y3N 19:36
PROVIDERS: ADMIT Allergy & Immunology; ATTEND Surgery
PROC: HZ2ZZZZ Detoxification Services for Substance Abuse Treatment (ICD-10-PCS; principal; 2022-05-27)
DX: F10.230 Alcohol dependence with withdrawal, uncomplicated (principal); F14.20 Cocaine dependence, uncomplicated; F12.20 Cannabis dependence, uncomplicated; F17.210 Nicotine dependence, cigarettes, uncomplicated; F25.1 Schizoaffective disorder, depressive type; F19.282 Other psychoactive substance dependence with psychoactive substance-induced sleep disorder; F19.24 Other psychoactive substance dependence with psychoactive substance-induced mood disorder; F32.A Depression, unspecified; F43.10 Post-traumatic stress disorder, unspecified; I10 Essential (primary) hypertension; J45.909 Unspecified asthma, uncomplicated; K21.9 Gastro-esophageal reflux disease without esophagitis; M10.9 Gout, unspecified; M19.041 Primary osteoarthritis, right hand; M19.042 Primary osteoarthritis, left hand; Z86.69 Personal history of other diseases of the nervous system and sense organs; Z86.19 Personal history of other infectious and parasitic diseases
CPT/HCPCS: C9803-CS; U0003; U0005

== ENCOUNTER 2022-09-01 13:43 | Inpatient (IN) | payer OTHER ==
[2022-09-01 14:29] VITALS: BMI 27.3
[2022-09-01] MEDS ORDERED: NICOTINE 10 MG CARTRIDGE (INHALER) IH PRN (18:05)
[2022-09-01] MEDS ORDERED: ACETAMINOPHEN 325 MG TABLET (FP) PO PRN (18:05)
[2022-09-01] MEDS ORDERED: guaiFENesin 200 MG/10 ML 10 ML UNIT-DOSE CUPS PO PRN (18:05)
[2022-09-01] MEDS ORDERED: MAG HYDROX/AL HYDROX/SIMETH 30 ML UNIT-DOSE CUP PO PRN (18:05)
[2022-09-01] MEDS ORDERED: MAGNESIUM HYDROX 2400MG/30ML ORAL SUSPENSION 30 ML CUP PO PRN (18:05)
[2022-09-01] MEDS ORDERED: P-EPHED 60MG/TRIPROLIDI 2.5MG TABLET PO PRN (18:05)
[2022-09-01] MEDS ORDERED: POLYETHYLENE GLYCOL (HEALTHYLAX) 3350 17 GM PACKET PO PRN (18:05)
[2022-09-01] MEDS ORDERED: BENZOCAINE/MENTHOL (CHLORASEPTIC ) LOZENGE MM PRN (18:05)
[2022-09-01] MEDS ORDERED: IBUPROFEN 400 MG TABLET (FP) PO PRN (18:05)
[2022-09-01] MEDS ORDERED: LOPERAMIDE HCL 2 MG CAPSULE PO PRN (18:05)
[2022-09-01] MEDS: THIAMINE HCL 100 MG TABLET (FP) PO SCH (21:50)
[2022-09-01] MEDS ORDERED: MELATONIN 5 MG TABLETS PO SCH (22:00)
[2022-09-02] MEDS: amLODIPine BESYLATE 10 MG TABLET (FP) PO SCH ×2 (07:47→10:45)
[2022-09-02] MEDS: ALBUTEROL SO4 HFA INHALER IH SCH ×4 (09:08→19:58)
[2022-09-02] MEDS: PRENATAL VITAMINS W/ FOLIC ACID TABLET (FP) PO SCH (10:45)
[2022-09-02] MEDS: NICOTINE 21 MG/24 HOURS TOPICAL PATCH TD SCH (10:46)
[2022-09-02 12:30] LABS: HEMATOCRIT 45.4 % (35.4-49); HEMOGLOBIN 14.9 GM/dL (11.7-16.9); MCH 30.7 pg (25.7-33.7); MCHC 32.8 g/dl (32.0-35.9); MEAN CELL VOLUME 93.6 fl (80-96); MEAN PLT VOLUME 9.9 fl (7.5-11.1); PLATELET COUNT 251 10^3/uL (134-434); RBC 4.86 M/mm3 (4.00-5.60); RDW 14.6 % (11.9-15.9); WHITE BLOOD COUNT 6.6 K/mm3 (4.0-10.0)
[2022-09-02 12:35] LABS: BLOOD UREA NITROGEN 10.4 mg/dL (7-18)
[2022-09-02 12:36] LABS: CALCIUM 8.8 mg/dL (8.5-10.1); CREATININE 0.9 mg/dL (0.55-1.3)
[2022-09-02 12:37] LABS: ALBUMIN 3.4 g/dl (3.4-5.0)
[2022-09-02 12:38] LABS: TOT PROT 6.7 g/dl (6.4-8.2)
[2022-09-02 12:39] LABS: BILIRUBIN,TOTAL 1.1 mg/dL (0.2-1)
[2022-09-02 17:34] LABS: PH,URINE 6.5 (5.0-8.0); URINE APPEARANCE CLEAR; URINE BILIRUBIN NEGATIVE (NEGATIVE); URINE COLOR YELLOW; URINE GLUCOSE (UA) NEGATIVE (NEGATIVE); URINE KETONE NEGATIVE (NEGATIVE); URINE LEUK ESTERASE NEGATIVE (NEGATIVE); URINE NITRITE NEGATIVE (NEGATIVE); URINE PROTEIN NEGATIVE (NEGATIVE); URINE UROBILINOGEN 0.2 mg/dL (0.2-1.0)
[2022-09-02] MEDS: traZODone HCL 100 MG TABLET (FP) PO SCH (21:57)
[2022-09-02] MEDS: THIAMINE HCL 100 MG TABLET (FP) PO SCH (21:57)
[2022-09-03] MEDS: ALBUTEROL SO4 HFA INHALER IH SCH ×7 (03:58→22:28)
[2022-09-03] MEDS: NICOTINE 21 MG/24 HOURS TOPICAL PATCH TD SCH (10:13)
[2022-09-03] MEDS: amLODIPine BESYLATE 10 MG TABLET (FP) PO SCH (10:26)
[2022-09-03] MEDS: PRENATAL VITAMINS W/ FOLIC ACID TABLET (FP) PO SCH (10:26)
[2022-09-03] MEDS: traZODone HCL 100 MG TABLET (FP) PO SCH (21:18)
[2022-09-03] MEDS: THIAMINE HCL 100 MG TABLET (FP) PO SCH (21:18)
[2022-09-04] MEDS: ALBUTEROL SO4 HFA INHALER IH SCH ×6 (03:15→22:40)
[2022-09-04] MEDS: PRENATAL VITAMINS W/ FOLIC ACID TABLET (FP) PO SCH (10:22)
[2022-09-04] MEDS: amLODIPine BESYLATE 10 MG TABLET (FP) PO SCH (10:22)
[2022-09-04] MEDS: NICOTINE 21 MG/24 HOURS TOPICAL PATCH TD SCH (10:22)
[2022-09-04] MEDS: THIAMINE HCL 100 MG TABLET (FP) PO SCH (21:32)
[2022-09-04] MEDS: traZODone HCL 100 MG TABLET (FP) PO SCH (21:32)
[2022-09-05] MEDS: ALBUTEROL SO4 HFA INHALER IH SCH ×5 (03:15→21:31)
[2022-09-05] MEDS: amLODIPine BESYLATE 10 MG TABLET (FP) PO SCH (10:09)
[2022-09-05] MEDS: NICOTINE 21 MG/24 HOURS TOPICAL PATCH TD SCH (10:09)
[2022-09-05] MEDS: PRENATAL VITAMINS W/ FOLIC ACID TABLET (FP) PO SCH (10:10)
[2022-09-05] MEDS: traZODone HCL 100 MG TABLET (FP) PO SCH (21:31)
[2022-09-05] MEDS: THIAMINE HCL 100 MG TABLET (FP) PO SCH (21:31)
[2022-09-06] MEDS: ALBUTEROL SO4 HFA INHALER IH SCH ×4 (00:22→11:58)
[2022-09-06] MEDS: PRENATAL VITAMINS W/ FOLIC ACID TABLET (FP) PO SCH (09:57)
[2022-09-06] MEDS: NICOTINE 21 MG/24 HOURS TOPICAL PATCH TD SCH (09:57)
[2022-09-06] MEDS: amLODIPine BESYLATE 10 MG TABLET (FP) PO SCH (09:57)
[2022-09-06] MEDS ORDERED: ALBUTEROL SO4 HFA INHALER IH PRN (12:05)
[2022-09-06] MEDS: traZODone HCL 100 MG TABLET (FP) PO SCH (21:01)
[2022-09-06] MEDS: THIAMINE HCL 100 MG TABLET (FP) PO SCH (21:02)
[2022-09-07] MEDS: NICOTINE 21 MG/24 HOURS TOPICAL PATCH TD SCH (09:46)
[2022-09-07] MEDS: amLODIPine BESYLATE 10 MG TABLET (FP) PO SCH (09:47)
[2022-09-07] MEDS: PRENATAL VITAMINS W/ FOLIC ACID TABLET (FP) PO SCH (09:47)
[2022-09-07] MEDS: traZODone HCL 100 MG TABLET (FP) PO SCH (21:16)
[2022-09-07] MEDS: THIAMINE HCL 100 MG TABLET (FP) PO SCH (21:16)
[2022-09-08] MEDS: PRENATAL VITAMINS W/ FOLIC ACID TABLET (FP) PO SCH (10:23)
[2022-09-08] MEDS: amLODIPine BESYLATE 10 MG TABLET (FP) PO SCH (10:23)
[2022-09-08] MEDS: NICOTINE 21 MG/24 HOURS TOPICAL PATCH TD SCH (10:23)
[2022-09-08] MEDS: traZODone HCL 100 MG TABLET (FP) PO SCH (21:17)
[2022-09-08] MEDS: THIAMINE HCL 100 MG TABLET (FP) PO SCH (21:17)
[2022-09-09] MEDS: NICOTINE 21 MG/24 HOURS TOPICAL PATCH TD SCH (09:58)
[2022-09-09] MEDS: amLODIPine BESYLATE 10 MG TABLET (FP) PO SCH (09:58)
[2022-09-09] MEDS: PRENATAL VITAMINS W/ FOLIC ACID TABLET (FP) PO SCH (10:01)
[2022-09-09] MEDS: THIAMINE HCL 100 MG TABLET (FP) PO SCH (20:59)
[2022-09-09] MEDS: traZODone HCL 100 MG TABLET (FP) PO SCH (20:59)
[2022-09-10] MEDS: amLODIPine BESYLATE 10 MG TABLET (FP) PO SCH (10:06)
[2022-09-10] MEDS: NICOTINE 21 MG/24 HOURS TOPICAL PATCH TD SCH (10:06)
[2022-09-10] MEDS: PRENATAL VITAMINS W/ FOLIC ACID TABLET (FP) PO SCH (10:06)
[2022-09-10] MEDS: traZODone HCL 100 MG TABLET (FP) PO SCH (21:12)
[2022-09-10] MEDS: THIAMINE HCL 100 MG TABLET (FP) PO SCH (21:13)
[2022-09-11 06:58] VITALS: RESP 18
[2022-09-11] MEDS: NICOTINE 21 MG/24 HOURS TOPICAL PATCH TD SCH (09:29)
[2022-09-11] MEDS: amLODIPine BESYLATE 10 MG TABLET (FP) PO SCH (09:29)
[2022-09-11] MEDS: PRENATAL VITAMINS W/ FOLIC ACID TABLET (FP) PO SCH (09:30)
[2022-09-11] MEDS ORDERED: PRENATAL VITAMINS W/ FOLIC ACID TABLET (FP) PO PRN (11:58)
[2022-09-11] MEDS: traZODone HCL 100 MG TABLET (FP) PO SCH (21:07)
[2022-09-11] MEDS: THIAMINE HCL 100 MG TABLET (FP) PO SCH (21:08)
[2022-09-12] MEDS ORDERED: TUBERCULIN PPD 5 TU/0.1ML VIAL ID ONE (03:04)
[2022-09-12] MEDS: amLODIPine BESYLATE 10 MG TABLET (FP) PO SCH (09:38)
[2022-09-12] MEDS: NICOTINE 21 MG/24 HOURS TOPICAL PATCH TD SCH (09:38)
[2022-09-12] MEDS: THIAMINE HCL 100 MG TABLET (FP) PO SCH (21:00)
[2022-09-12] MEDS: traZODone HCL 100 MG TABLET (FP) PO SCH (21:00)
[2022-09-13] MEDS: amLODIPine BESYLATE 10 MG TABLET (FP) PO SCH (09:52)
[2022-09-13] MEDS: NICOTINE 21 MG/24 HOURS TOPICAL PATCH TD SCH (09:52)
[2022-09-13] MEDS: traZODone HCL 100 MG TABLET (FP) PO SCH (21:14)
[2022-09-13] MEDS: THIAMINE HCL 100 MG TABLET (FP) PO SCH (21:14)
[2022-09-14 07:59] VITALS: BP 128/87; PULSE 81; TEMP 98.6
[2022-09-14] MEDS: NICOTINE 21 MG/24 HOURS TOPICAL PATCH TD SCH (09:42)
[2022-09-14] MEDS: amLODIPine BESYLATE 10 MG TABLET (FP) PO SCH (09:42)
== END 2022-09-14 10:05 | disposition home or self-care (01) | DRG 772 ==
LOC: YASAS 13:43 → Y3W 20:17
PROVIDERS: ADMIT Allergy & Immunology; ATTEND Psychiatry & Neurology Pain Medicine
PROC: HZ42ZZZ Group Counseling for Substance Abuse Treatment, Cognitive-Behavioral (ICD-10-PCS; principal; 2022-09-01)
DX: F10.20 Alcohol dependence, uncomplicated (principal); F14.20 Cocaine dependence, uncomplicated; F12.20 Cannabis dependence, uncomplicated; F17.210 Nicotine dependence, cigarettes, uncomplicated; F25.1 Schizoaffective disorder, depressive type; F19.282 Other psychoactive substance dependence with psychoactive substance-induced sleep disorder; F19.24 Other psychoactive substance dependence with psychoactive substance-induced mood disorder; F32.A Depression, unspecified; I10 Essential (primary) hypertension; J45.909 Unspecified asthma, uncomplicated; K21.9 Gastro-esophageal reflux disease without esophagitis; M10.062 Idiopathic gout, left knee; M19.041 Primary osteoarthritis, right hand; M19.042 Primary osteoarthritis, left hand; Z86.19 Personal history of other infectious and parasitic diseases; Z88.8 Allergy status to other drugs, medicaments and biological substances; Z91.013 Allergy to seafood
CPT/HCPCS: 36415; 80053; 81003; 85027; 86780; C9803-CS; U0003; U0005

== ENCOUNTER 2022-11-28 12:06 | Inpatient (IN) | payer OTHER ==
[2022-11-28 12:24] VITALS: BMI 24.3
[2022-11-28] MEDS ORDERED: NICOTINE 10 MG CARTRIDGE (INHALER) IH PRN (13:37)
[2022-11-28] MEDS ORDERED: BENZOCAINE/MENTHOL (CHLORASEPTIC ) LOZENGE MM PRN (13:37)
[2022-11-28] MEDS ORDERED: guaiFENesin 600 MG TABLET.ER (FP) PO PRN (13:37)
[2022-11-28] MEDS ORDERED: NICOTINE POLACRILEX 4 MG GUM BUC PRN (13:37)
[2022-11-28] MEDS ORDERED: IBUPROFEN 600 MG TABLET (FP) PO PRN (13:37)
[2022-11-28] MEDS ORDERED: IBUPROFEN 400 MG TABLET (FP) PO PRN (13:37)
[2022-11-28] MEDS ORDERED: NICOTINE 21 MG/24 HOURS TOPICAL PATCH TD PRN (13:37)
[2022-11-28] MEDS ORDERED: POLYETHYLENE GLYCOL (HEALTHYLAX) 3350 17 GM PACKET PO PRN (13:37)
[2022-11-28] MEDS ORDERED: LOPERAMIDE HCL 2 MG CAPSULE PO PRN (13:37)
[2022-11-28] MEDS ORDERED: BENZONATATE 200 MG CAPSULE PO PRN (13:37)
[2022-11-28] MEDS ORDERED: MAGNESIUM HYDROX 2400MG/30ML ORAL SUSPENSION 30 ML CUP PO PRN (13:37)
[2022-11-28] MEDS ORDERED: MAG HYDROX/AL HYDROX/SIMETH 30 ML UNIT-DOSE CUP PO PRN (13:37)
[2022-11-28] MEDS ORDERED: ACETAMINOPHEN 325 MG TABLET (FP) PO PRN (13:37)
[2022-11-28] MEDS ORDERED: ALBUTEROL SO4 HFA INHALER IH PRN (13:41)
[2022-11-28] MEDS ORDERED: amLODIPine BESYLATE 5 MG TABLET (FP) ONE ×2 (17:46→17:49)
[2022-11-28] MEDS: amLODIPine BESYLATE 10 MG TABLET (FP) PO SCH (17:47)
[2022-11-28] MEDS: hydrOXYzine PAMOATE 25 MG CAPSULE (FP) PO PRN (21:48)
[2022-11-28] MEDS: THIAMINE HCL 100 MG TABLET (FP) PO SCH (21:48)
[2022-11-28] MEDS ORDERED: MELATONIN 5 MG TABLETS PO SCH (22:00)
[2022-11-29] MEDS: amLODIPine BESYLATE 10 MG TABLET (FP) PO SCH (09:24)
[2022-11-29] MEDS: PRENATAL VITAMINS W/ FOLIC ACID TABLET (FP) PO SCH (09:24)
[2022-11-29 11:51] LABS: HEMOGLOBIN 15.2 GM/dL (11.7-16.9); MCH 31.3 pg (25.7-33.7); MCHC 33.8 g/dl (32.0-35.9); MEAN CELL VOLUME 92.7 fl (80-96); MEAN PLT VOLUME 10.1 fl (7.5-11.1); PLATELET COUNT 233 10^3/uL (134-434); RBC 4.85 M/mm3 (4.00-5.60); RDW 13.9 % (11.9-15.9); WHITE BLOOD COUNT 9.1 K/mm3 (4.0-10.0)
[2022-11-29 11:55] LABS: CALCIUM 9.2 mg/dL (8.5-10.1)
[2022-11-29 11:56] LABS: ALBUMIN 3.6 g/dl (3.4-5.0); BLOOD UREA NITROGEN 12.5 mg/dL (7-18)
[2022-11-29 11:59] LABS: CREATININE 0.9 mg/dL (0.55-1.3)
[2022-11-29 12:01] LABS: BILIRUBIN,TOTAL 0.6 mg/dL (0.2-1); TOT PROT 6.9 g/dl (6.4-8.2)
[2022-11-29 15:05] LABS: URINE APPEARANCE CLEAR; URINE BILIRUBIN NEGATIVE (NEGATIVE); URINE COLOR YELLOW; URINE GLUCOSE (UA) NEGATIVE (NEGATIVE); URINE KETONE NEGATIVE (NEGATIVE); URINE LEUK ESTERASE NEGATIVE (NEGATIVE); URINE NITRITE NEGATIVE (NEGATIVE); URINE PROTEIN NEGATIVE (NEGATIVE); URINE UROBILINOGEN 0.2 mg/dL (0.2-1.0)
[2022-11-29] MEDS: THIAMINE HCL 100 MG TABLET (FP) PO SCH (21:19)
[2022-11-29] MEDS: traZODone HCL 100 MG TABLET (FP) PO SCH (21:19)
[2022-11-30] MEDS: amLODIPine BESYLATE 10 MG TABLET (FP) PO SCH (09:40)
[2022-11-30] MEDS: PRENATAL VITAMINS W/ FOLIC ACID TABLET (FP) PO SCH (09:41)
[2022-11-30] MEDS: THIAMINE HCL 100 MG TABLET (FP) PO SCH (21:38)
[2022-11-30] MEDS: hydrOXYzine PAMOATE 25 MG CAPSULE (FP) PO PRN (21:38)
[2022-11-30] MEDS: traZODone HCL 100 MG TABLET (FP) PO SCH (21:38)
[2022-12-01] MEDS: PRENATAL VITAMINS W/ FOLIC ACID TABLET (FP) PO SCH (09:55)
[2022-12-01] MEDS: amLODIPine BESYLATE 10 MG TABLET (FP) PO SCH (09:55)
[2022-12-01] MEDS: traZODone HCL 100 MG TABLET (FP) PO SCH (21:30)
[2022-12-01] MEDS: THIAMINE HCL 100 MG TABLET (FP) PO SCH (21:30)
[2022-12-02] MEDS: PRENATAL VITAMINS W/ FOLIC ACID TABLET (FP) PO SCH (09:47)
[2022-12-02] MEDS: amLODIPine BESYLATE 10 MG TABLET (FP) PO SCH (09:47)
[2022-12-02] MEDS: THIAMINE HCL 100 MG TABLET (FP) PO SCH (21:37)
[2022-12-02] MEDS: traZODone HCL 100 MG TABLET (FP) PO SCH (21:37)
[2022-12-03] MEDS: amLODIPine BESYLATE 10 MG TABLET (FP) PO SCH (09:53)
[2022-12-03] MEDS: traZODone HCL 100 MG TABLET (FP) PO SCH (21:16)
[2022-12-03] MEDS: hydrOXYzine PAMOATE 25 MG CAPSULE (FP) PO PRN (21:16)
[2022-12-03] MEDS: THIAMINE HCL 100 MG TABLET (FP) PO SCH (21:17)
[2022-12-04] MEDS: amLODIPine BESYLATE 10 MG TABLET (FP) PO SCH (09:43)
[2022-12-04] MEDS: traZODone HCL 100 MG TABLET (FP) PO SCH (21:37)
[2022-12-04] MEDS: THIAMINE HCL 100 MG TABLET (FP) PO SCH (21:37)
[2022-12-05] MEDS: amLODIPine BESYLATE 10 MG TABLET (FP) PO SCH (09:55)
[2022-12-05] MEDS: hydrOXYzine PAMOATE 25 MG CAPSULE (FP) PO PRN (21:27)
[2022-12-05] MEDS: THIAMINE HCL 100 MG TABLET (FP) PO SCH (21:27)
[2022-12-05] MEDS: traZODone HCL 100 MG TABLET (FP) PO SCH (21:27)
[2022-12-06] MEDS: amLODIPine BESYLATE 10 MG TABLET (FP) PO SCH (09:50)
[2022-12-06] MEDS: traZODone HCL 100 MG TABLET (FP) PO SCH (21:23)
[2022-12-06] MEDS: hydrOXYzine PAMOATE 25 MG CAPSULE (FP) PO PRN (21:23)
[2022-12-06] MEDS: THIAMINE HCL 100 MG TABLET (FP) PO SCH (21:24)
[2022-12-07] MEDS: amLODIPine BESYLATE 10 MG TABLET (FP) PO SCH (09:44)
[2022-12-07] MEDS: THIAMINE HCL 100 MG TABLET (FP) PO SCH (21:13)
[2022-12-07] MEDS: traZODone HCL 100 MG TABLET (FP) PO SCH (21:13)
[2022-12-07] MEDS: hydrOXYzine PAMOATE 25 MG CAPSULE (FP) PO PRN (21:13)
[2022-12-08] MEDS: amLODIPine BESYLATE 10 MG TABLET (FP) PO SCH (09:31)
[2022-12-08] MEDS: hydrOXYzine PAMOATE 25 MG CAPSULE (FP) PO PRN (21:26)
[2022-12-08] MEDS: traZODone HCL 100 MG TABLET (FP) PO SCH (21:27)
[2022-12-08] MEDS: THIAMINE HCL 100 MG TABLET (FP) PO SCH (21:27)
[2022-12-09] MEDS: amLODIPine BESYLATE 10 MG TABLET (FP) PO SCH (09:32)
[2022-12-09] MEDS: THIAMINE HCL 100 MG TABLET (FP) PO SCH (21:35)
[2022-12-09] MEDS: traZODone HCL 100 MG TABLET (FP) PO SCH (21:35)
[2022-12-09] MEDS: hydrOXYzine PAMOATE 25 MG CAPSULE (FP) PO PRN (21:35)
[2022-12-10] MEDS: amLODIPine BESYLATE 10 MG TABLET (FP) PO SCH (09:55)
[2022-12-10] MEDS: THIAMINE HCL 100 MG TABLET (FP) PO SCH (21:15)
[2022-12-10] MEDS: hydrOXYzine PAMOATE 25 MG CAPSULE (FP) PO PRN (21:15)
[2022-12-10] MEDS: traZODone HCL 100 MG TABLET (FP) PO SCH (21:15)
[2022-12-11] MEDS: amLODIPine BESYLATE 10 MG TABLET (FP) PO SCH (09:34)
[2022-12-11] MEDS: traZODone HCL 100 MG TABLET (FP) PO SCH (21:12)
[2022-12-11] MEDS: hydrOXYzine PAMOATE 25 MG CAPSULE (FP) PO PRN (21:12)
[2022-12-11] MEDS: THIAMINE HCL 100 MG TABLET (FP) PO SCH (21:12)
[2022-12-12 06:48] VITALS: RESP 20; TEMP 98
[2022-12-12 09:01] VITALS: BP 113/75; PULSE 84
[2022-12-12] MEDS: amLODIPine BESYLATE 10 MG TABLET (FP) PO SCH (09:01)
== END 2022-12-12 09:18 | disposition home or self-care (01) | DRG 772 ==
LOC: YASAS 12:06 → Y3E 16:18
PROVIDERS: ADMIT Allergy & Immunology; ATTEND Psychiatry & Neurology Pain Medicine
PROC: HZ42ZZZ Group Counseling for Substance Abuse Treatment, Cognitive-Behavioral (ICD-10-PCS; principal; 2022-11-28)
DX: F14.20 Cocaine dependence, uncomplicated (principal); F12.20 Cannabis dependence, uncomplicated; F17.210 Nicotine dependence, cigarettes, uncomplicated; F25.1 Schizoaffective disorder, depressive type; I10 Essential (primary) hypertension; J45.20 Mild intermittent asthma, uncomplicated; M10.9 Gout, unspecified; M19.041 Primary osteoarthritis, right hand; M19.042 Primary osteoarthritis, left hand; Z86.19 Personal history of other infectious and parasitic diseases; Z88.8 Allergy status to other drugs, medicaments and biological substances; Z91.013 Allergy to seafood
CPT/HCPCS: 36415; 80053; 81003; 85027; 86780; 87811; C9803-CS; U0003; U0005

== ENCOUNTER 2024-03-18 10:00 | Inpatient (IN) | payer OTHER ==
[2024-03-18 10:35] VITALS: BMI 23.6
[2024-03-18] MEDS ORDERED: BENZOCAINE/MENTHOL (CHLORASEPTIC ) LOZENGE MM PRN (10:58)
[2024-03-18] MEDS ORDERED: ACETAMINOPHEN 325 MG TABLET (FP) PO PRN (10:58)
[2024-03-18] MEDS ORDERED: POLYETHYLENE GLYCOL (HEALTHYLAX) 3350 17 GM PACKET PO PRN (10:58)
[2024-03-18] MEDS ORDERED: IBUPROFEN 400 MG TABLET (FP) PO PRN (10:58)
[2024-03-18] MEDS ORDERED: NICOTINE POLACRILEX 2 MG LOZENGE BC PRN (10:58)
[2024-03-18] MEDS ORDERED: MAG HYDROX/AL HYDROX/SIMETH 30 ML UNIT-DOSE CUP PO PRN (10:58)
[2024-03-18] MEDS ORDERED: LOPERAMIDE HCL 2 MG CAPSULE PO PRN (10:58)
[2024-03-18] MEDS ORDERED: BENZONATATE 200 MG CAPSULE PO PRN (10:58)
[2024-03-18] MEDS ORDERED: NICOTINE POLACRILEX 2 MG GUM BUC PRN (10:58)
[2024-03-18] MEDS ORDERED: IBUPROFEN 600 MG TABLET (FP) PO PRN (10:58)
[2024-03-18] MEDS ORDERED: guaiFENesin 600 MG TABLET.ER (FP) PO PRN (10:58)
[2024-03-18] MEDS ORDERED: P-EPHED 60MG/TRIPROLIDI 2.5MG TABLET PO PRN (10:58)
[2024-03-18] MEDS ORDERED: MAGNESIUM HYDROX 2400MG/30ML ORAL SUSPENSION 30 ML CUP PO PRN (10:58)
[2024-03-18] MEDS ORDERED: amLODIPine BESYLATE 5 MG TABLET (FP) ONE (12:25)
[2024-03-18] MEDS: amLODIPine BESYLATE 5 MG TABLET (FP) PO SCH (12:26)
[2024-03-18] MEDS: MELATONIN 5 MG TABLETS PO SCH (22:06)
[2024-03-18] MEDS: THIAMINE 100 MG TABLET PO SCH (22:06)
[2024-03-19 07:09] VITALS: BP 144/92; PULSE 73; RESP 18; TEMP 97.9
[2024-03-19] MEDS: ALBUTEROL SO4 HFA INHALER IH PRN (09:30)
[2024-03-19] MEDS: PRENATAL VITAMINS W/ FOLIC ACID TABLET (FP) PO SCH (10:26)
== END 2024-03-19 09:38 | disposition home or self-care (01) | DRG 772 ==
LOC: YASAS 10:00 → Y5N 11:58
PROVIDERS: ADMIT Allergy & Immunology; ATTEND Psychiatry & Neurology Pain Medicine
PROC: HZ42ZZZ Group Counseling for Substance Abuse Treatment, Cognitive-Behavioral (ICD-10-PCS; principal; 2024-03-18)
DX: F10.10 Alcohol abuse, uncomplicated (principal); F18.20 Inhalant dependence, uncomplicated; F12.20 Cannabis dependence, uncomplicated; F17.210 Nicotine dependence, cigarettes, uncomplicated; F25.9 Schizoaffective disorder, unspecified; I10 Essential (primary) hypertension; J45.909 Unspecified asthma, uncomplicated; Z56.0 Unemployment, unspecified; Z59.01 Sheltered homelessness; Z88.8 Allergy status to other drugs, medicaments and biological substances
CPT/HCPCS: 71045-TC-FY; 80305; 87811